=== PATIENT | male | born 1990 | race African-American/Black ===

== ENCOUNTER 2020-03-12 20:03 | Inpatient (IN) | payer OTHER ==
[2020-03-12] MEDS ORDERED: SODIUM CHLORIDE 1,000 ML IV STA ×2 (20:16→21:55)
--- NOTE | 2020-03-12 20:23 | PDOC ---
History of Present Illness - General Chief Complaint: Blood Sugar Problem Stated Complaint: [facility] Time Seen by Provider: 03/12/20 20:16 History Source: Patient Exam Limitations: No Limitations - History of Present Illness Initial Comments: Pt is a 29 yo M, with PMH of uncontrolled hyperglycemia, who is presenting from for hyperglycemia with BGM in 600s. Pt states over the past year, he has had at least 3 episodes when he feels "much more tired" than usual, and goes to and has BGM 500-600s. Pt has not been started on metformin or insulin, and has not seen his PCP since this time. Pt also endorses recent weight loss and decreased appetite. Pt denies any fevers/chills, headache, vision changes, syncope, chest pain, palpitations, SOB, nausea/vomiting, abdominal pain, polyuria or increased thirst, urinary symptoms, diarrhea/constipation, or leg swelling. Allergies: NKDA PCP: Dr. Willy Lopez Social: Pt denies any cigarette, alcohol, or drug use. Pt denies any recent travel or sick contacts. Surgical: nephrectomy as (pt does not know why) Family: extensive history of Type 2 DM 03/12/20 20:54 Past History - Travel History Traveled outside of the country in the last 30 days: No Close contact w/someone who was outside of country & ill: No - Medical History Allergies/Adverse Reactions: Allergies Allergy/AdvReac Type Severity Reaction Status Date / Time shrimp Allergy Verified 03/12/20 21:27 shrimp Allergy Uncoded 03/12/20 20:17 Home Medications: Ambulatory Orders No Home Medications 0 dose .ROUTE UTDICT 09/20/12 Diphenhydramine HCl [Benadryl Capsule -] 25 mg PO TID #4 capsule 02/03/13 EPINEPHrine (EPI-PEN 0.3MG) [Epipen 0.3MG -] 0.3 mg IM ASDIR #2 pens 02/03/13 predniSONE [Deltasone -] 40 mg PO DAILY #4 tablet 02/03/13 COPD: No Other medical history: 1 kidney - Immunization History Immunization Up to Date: No - Psycho-Social/Smoking History Smoking Status: No Smoking History: Never smoked Number of Cigarettes Smoked Daily: 0 Review of Systems - Review of Systems Able to Perform ROS?: Yes Is the patient limited Spanish proficient: No Constitutional: Yes: Loss of Appetite, Malaise, Unintentional Wgt. Loss. No: Chills, Diaphoresis, Fever, Weakness HEENTM: No: Recent change in vision, Nose Congestion, Throat Pain, Throat Swelling, Difficulty Swallowing Respiratory: No: Cough, Orthopnea, Shortness of Breath Cardiac (ROS): No: Chest Pain, Edema, Irregular Heart Rate, Lightheadedness, Palpitations, Syncope, Chest Tightness ABD/GI: Yes: Poor Appetite. No: Constipated, Diarrhea, Nausea, Poor Fluid Intake, Vomiting : No: Burning, Dysuria, Frequency, Hematuria, Pain, Urgency Musculoskeletal: No: Back Pain, Muscle Pain, Muscle Weakness Integumentary: No: Rash Neurological: No: Headache, Numbness, Weakness, Unsteady Gait, Dizziness Psychiatric: Yes: Change in Appetite. No: Stressors, Sleep Pattern Change, Emotional Problems Endocrine: Yes: Unexplained Weight Loss, Change in Weight. No: Intolerance to Cold, Intolerance to Heat, Increased Urine Hematologic/Lymphatic: No: Anemia, Blood Clots, Easy Bleeding, Easy Bruising All Other Systems: Reviewed and Negative *Physical Exam - Vital Signs Last Vital Signs Temp Pulse Resp BP Pulse Ox 98.5 F 97 H 18 122/72 99 03/12/20 20:13 03/12/20 20:13 03/12/20 20:13 03/12/20 20:13 03/12/20 20:13 - Physical Exam Borderline tachycardia (HR 90s), pt afebrile. Pt in NAD, underweight body h abitus. Pt alert and oriented x3. plasterer spray gun generally intact, muscular strength and sensation intact. No midline spinal tenderness, step-offs, or crepitus. Head normocephalic, atraumatic. Eyes PERRLA, EOMI. Oropharynx without erythema or exudates, no LAD b/l. No nasal congestion. Hearing intact. Clear heart sounds, S1/S2, no JVD, b/l pedal edema, or heart murmur. Clear lung sounds, no respiratory distress, wheezes, crackles, or accessory muscle use. No abdominal or CVA tenderness to palpation, no rebound, no guarding. Abdomen soft, non-distended, and with normoactive bowel sounds. Skin without jaundice or rash. 03/12/20 20:59 ED Treatment Course - LABORATORY CBC & Chemistry Diagram: 03/12/20 20:37 03/12/20 20:37 Medical Decision Making - Medical Decision Making Pt was seen at bedside, also will be seen by attending Dr. Meadows. Pt presenting with uncontrolled hyperglycemia, unintentional weight loss; now at FTT, needs an insulin regimen. Will work-up for DKA vs hyperglycemia. BGM 600s today. Provided 1 L IV NS for improvement of hyperglycemia/hydration. Will continue to reassess pt and monitor for symptomatic improvement. 03/12/20 21:01 CBC WNL Gluc 500s Hypokalemia, hyponatremia, hypochloremia -- providing PO K, additional 1 L IV NS, starting sliding scale insulin AG closed Chest x-ray without acute pathology UA: glucose 3+, no ketones 03/12/20 21:57 Pt requires inpatient management due to FTT, uncontrolled DM with poor follow- up, requires insulin regimen. Paged hospitalist team for admission. ECG: NSR, intervals WNL (HR 74, VT 174, QRS 90, QTc 415). TWI V2, flattening in V3, with no significant ST segment changes. No significant changes from prior ECG. Pt accepted by hospitalist team. 03/12/20 22:09 Discharge - Discharge Information Problems reviewed: Yes Clinical Impression/Diagnosis: Hyperglycemia, Hypokalemia, FTT (failure to thrive) in adult Condition: Stable - Admission Yes - Follow up/Referral Referrals: Willy Lopez MD [Primary Care Provider] - - Patient Discharge Instructions - Post Discharge Activity
[2020-03-12 20:54] LABS: VENOUS BASE EXCESS 6.8 mmol/L (-2-2); VENOUS O2 SATURATION 87.4 % (70-80); VENOUS PCO2 49.3 mmHg (38-52); VENOUS PH 7.435 (7.310-7.410)
[2020-03-12 21:02] LABS: URINE APPEARANCE Clear; URINE BILIRUBIN Negative (NEGATIVE); URINE COLOR Yellow; URINE GLUCOSE (UA) 3+ (NEGATIVE); URINE KETONE Negative (NEGATIVE); URINE LEUK ESTERASE Negative (NEGATIVE); URINE NITRITE Negative (NEGATIVE); URINE PROTEIN Negative (NEGATIVE); URINE UROBILINOGEN 0.2 mg/dL (0.2-1.0)
[2020-03-12 21:04] LABS: BASO % 1.5 % (0-2.0); EOS % 0.9 % (0-4.5); HEMATOCRIT 39.8 % (35.4-49); HEMOGLOBIN 13.7 GM/dL (11.7-16.9); LYMPH % 46.3 % (8-40); MCH 31.6 pg (25.7-33.7); MCHC 34.3 g/dl (32.0-35.9); MEAN PLT VOLUME 10.7 fl (7.5-11.1); MONO % 7.6 % (3.8-10.2); NEUT % 43.7 % (42.8-82.8); PLATELET COUNT 123 K/MM3 (134-434); RBC 4.33 M/mm3 (4.00-5.60); RDW 12.8 % (11.9-15.9); WHITE BLOOD COUNT 5.1 K/mm3 (4.0-10.0)
[2020-03-12 21:29] LABS: ALBUMIN 3.2 g/dl (3.4-5.0); BILIRUBIN,TOTAL 0.5 mg/dL (0.2-1); BLOOD UREA NITROGEN 12.6 mg/dL (7-18); CALCIUM 8.8 mg/dL (8.5-10.1); CREATININE 1.1 mg/dL (0.55-1.3); POTASSIUM 3.3 mmol/L (3.5-5.1); TOT PROT 6.2 g/dl (6.4-8.2)
[2020-03-12] MEDS ORDERED: POTASSIUM CHLORIDE TABS 20 MEQ TABLET.ER (FP) PO ONE ×2 (21:32→22:27)
--- NOTE | 2020-03-12 21:49 | PDOC ---
Documentation entered by Walter Tan SCRIBE, acting as scribe for Maurizio Meadows MD. Maurizio Meadows MD: This documentation has been prepared by the rBitney strong Nirvannie, SCRIBE, under my direction and personally reviewed by me in its entirety. I confirm that the documentation accurately reflects all work, treatment, procedures, and medical decision making performed by me. Attending Attestation - Resident Resident Name: KostaCassandra - ED Attending Attestation I have performed the following: I have examined & evaluated the patient, The case was reviewed & discussed with the resident, I agree w/resident's findings & plan, Exceptions are as noted - HPI HPI: 03/12/20 21:42 The patient is a 29 year old male with a significant past medical history of DM who presents to the ED from urgent care with hyperglycemia to the 600s. As per patient, he has experienced increased tiredness. Endorses increased thirst and urination. Denies F/C. States he is not currently on any antihyperlgycemics despite being diagnosed with DM. Allergies: NKDA Surgical History: nephrectomy as infant (unknown reason) Familial History: Extensive history of Type 2 DM Primary Care Physician: Dr. Willy Lopez - Physicial Exam PE: 03/12/20 21:50 "GENERAL: Awake, alert, and fully oriented, in no acute distress. HEAD: No signs of trauma EYES: PERRLA, EOMI, sclera anicteric, conjunctiva clear ENT: Auricles normal inspection, hearing grossly normal, nares patent, oropharynx clear without exudates. Moist mucosa NECK: Nontender, no stepoffs, Normal ROM, supple, no lymphadenopathy, JVD, or masses LUNGS: Breath sounds equal, clear to auscultation bilaterally. No wheezes, and no crackles HEART: Regular rate and rhythm, normal S1 and S2, no murmurs, rubs or gallops ABDOMEN: Soft, nontender, normoactive bowel sounds. No guarding, no rebound. No masses EXTREMITIES: Normal range of motion, no edema. No clubbing or cyanosis. No cords, erythema, or tenderness NEUROLOGICAL: Cranial nerves II through XII intact. 5/5 strength and sensation in all extremities, Normal speech, normal gait, normal cerebellar function SKIN: Warm, Dry, normal turgor, no rashes or lesions noted. - Medical Decision Making 03/12/20 21:50 29 M with elevated fingerstick. - Labs, ketones, VBG - IV fluids, insulin as needed Discharge - Discharge Information Problems reviewed: Yes Clinical Impression/Diagnosis: Hyperglycemia, Hypokalemia, FTT (failure to thrive) in adult Condition: Stable - Follow up/Referral - Patient Discharge Instructions - Post Discharge Activity
[2020-03-12] MEDS ORDERED: INSULIN SLIDING SCALE (NOVOLOG) 1 VIAL SQ SCH (22:00)
--- NOTE | 2020-03-12 23:00 | HP ---
CHIEF COMPLAINT: fatigue and hyperglycemia PCP: Willy Lopez HISTORY OF PRESENT ILLNESS: this is a 29 year old male with a past medical history of asthma as a child, prematurity and nephrectomy as an infant who presented to the ED from urgent care with hyperglycemia. Pt reports feeling fatigued prompting his visit to urgent care. At urgent care his sugar was in the 600s and was sent to the ED for further workup. Pt reports similar episodes of fatigue with associated hyperglycemia twice in the past which were treated at urgent care with recommendations to f/u with his PCP. The first episode was in March 2019 for which he never sought follow up. Approximately one month ago he had another episode and he did follow up with his PCP who recommended endocrine consult. Pt again did not follow up with the cheese grader. Patient reports 20-30 pound weight loss over the past month. Denies polydypsia, polyphagia or polyuria. ER course was notable for: (1) glucose 510 on BMP (2) s/p 1L NS with repeat BGM 341 Recent Travel: pt denies PAST MEDICAL HISTORY: asthma as a child, prematurity PAST SURGICAL HISTORY: nephrectomy shortly after -unknown etiology Social History: Smoking: pt denies Alcohol: pt denies Drugs: pt denies Allergies shrimp Allergy (Verified 03/12/20 21:27) HOME MEDICATIONS: none REVIEW OF SYSTEMS CONSTITUTIONAL: Present: generalized weakness, malaise, loss of appetite, weight change Absent: fever, chills, diaphoresis HEENT: Absent: rhinorrhea, nasal congestion, throat pain, throat swelling, difficulty swallowing, mouth swelling, ear pain, eye pain, visual changes CARDIOVASCULAR: Absent: chest pain, syncope, palpitations, irregular heart rate, lightheadedness, peripheral edema RESPIRATORY: Absent: cough, shortness of breath, dyspnea with exertion, orthopnea, wheezing, stridor, hemoptysis GASTROINTESTINAL: Absent: abdominal pain, abdominal distension, nausea, vomiting, diarrhea, constipation, melena, hematochezia GENITOURINARY: Absent: dysuria, frequency, urgency, hesitancy, hematuria, flank pain, genital pain MUSCULOSKELETAL: Absent: myalgia, arthralgia, joint swelling, back pain, neck pain SKIN: Absent: rash, itching, pallor HEMATOLOGIC/IMMUNOLOGIC: Absent: easy bleeding, easy bruising, lymphadenopathy, frequent infections ENDOCRINE: Present: unexplained weight loss Absent: unexplained weight gain, heat intolerance, cold intolerance NEUROLOGIC: Absent: headache, focal weakness or paresthesias, dizziness, unsteady gait, seizure, mental status changes, bladder or bowel incontinence PSYCHIATRIC: Absent: anxiety, depression, suicidal or homicidal ideation, hallucinations. PHYSICAL EXAMINATION Vital Signs - 24 hr 03/12/20 20:13 Temperature 98.5 F Pulse Rate 97 H Respiratory 18 Rate Blood Pressure 122/72 O2 Sat by Pulse 99 Oximetry (%) GENERAL: Awake, alert, and fully oriented, in no acute distress. HEAD: Normal with no signs of trauma. + temporal mandibular wasting EYES: Pupils equal, round and reactive to light, extraocular movements intact, sclera anicteric, conjunctiva clear. No lid lag. EARS, NOSE, THROAT: Ears normal, nares patent, oropharynx clear without exudates. Moist mucous membranes. NECK: Normal range of motion, supple without lymphadenopathy, JVD, or masses. LUNGS: Breath sounds equal, clear to auscultation bilaterally. No wheezes, and no crackles. No accessory muscle use. HEART: Regular rate and rhythm, normal S1 and S2 without murmur, rub or gallop. ABDOMEN: Soft, nontender, not distended, normoactive bowel sounds, no guarding, no rebound, no masses. No hepatomegaly or splenomegaly. MUSCULOSKELETAL: Normal range of motion at all joints. No bony deformities or tenderness. No CVA tenderness. UPPER EXTREMITIES: 2+ pulses, warm, well-perfused. No cyanosis. No clubbing. No peripheral edema. LOWER EXTREMITIES: 2+ pulses, warm, well-perfused. No calf tenderness. No peripheral edema. NEUROLOGICAL: Cranial nerves II-XII intact. Normal speech. Normal gait. PSYCHIATRIC: Cooperative. Good eye contact. Appropriate mood and affect. SKIN: Warm, dry, normal turgor, no rashes or lesions noted, normal capillary refill. Laboratory Results - last 24 hr 03/12/20 03/12/20 03/12/20 20:37 20:37 20:37 WBC 5.1 RBC 4.33 Hgb 13.7 Hct 39.8 MCV 92.0 MCH 31.6 MCHC 34.3 RDW 12.8 Plt Count 123 L MPV 10.7 Absolute Neuts (auto) 2.2 Neutrophils % 43.7 Lymphocytes % 46.3 H Monocytes % 7.6 Eosinophils % 0.9 Basophils % 1.5 Nucleated RBC % 0 VBG pH POC VBG pCO2 POC VBG pO2 VBG HCO3 VBG O2 Sat (Kavon) VBG Base Excess Sodium Potassium Chloride Carbon Dioxide Anion Gap BUN Creatinine Est GFR (CKD-EPI)AfAm Est GFR (CKD-EPI)NonAf POC Glucometer Random Glucose Calcium Total Bilirubin AST ALT Alkaline Phosphatase Total Protein Albumin Beta-Hydroxybutyrate 1.7 Urine Color Yellow Urine Appearance Clear Urine pH 7.0 Ur Specific [place] 1.010 Urine Protein Negative Urine Glucose (UA) 3+ H Urine Ketones Negative Urine Blood Negative Urine Nitrite Negative Urine Bilirubin Negative Urine Urobilinogen 0.2 Ur Leukocyte Esterase Negative 03/12/20 03/12/20 03/12/20 20:37 20:37 22:25 WBC RBC Hgb Hct MCV MCH MCHC RDW Plt Count MPV Absolute Neuts (auto) Neutrophils % Lymphocytes % Monocytes % Eosinophils % Basophils % Nucleated RBC % VBG pH 7.435 H POC VBG pCO2 49.3 POC VBG pO2 51.8 H VBG HCO3 32.4 H VBG O2 Sat (Kavon) 87.4 H VBG Base Excess 6.8 H Sodium 132 L Potassium 3.3 L Chloride 90 L Carbon Dioxide 34 H Anion Gap 8 BUN 12.6 Creatinine 1.1 Est GFR (CKD-EPI)AfAm 105.32 Est GFR (CKD-EPI)NonAf 90.87 POC Glucometer 341 Random Glucose 510 H* Calcium 8.8 Total Bilirubin 0.5 AST 30 ALT 51 Alkaline Phosphatase 122 H Total Protein 6.2 L Albumin 3.2 L Beta-Hydroxybutyrate Urine Color Urine Appearance Urine pH Ur Specific [place] Urine Protein Urine Glucose (UA) Urine Ketones Urine Blood Urine Nitrite Urine Bilirubin Urine Urobilinogen Ur Leukocyte Esterase ECG: Normal sinus rhythm vent rate 74, QTC [address]/t wave changes Chest xray: Impression: Unremarkable examination without evidence of acute lung disease. ASSESSMENT/PLAN: 29yM with h/o childhood asthma and nephrectomy present to the ED now admitted with new onset DM without DKA. New onset DM - sliding scale novolog - initiate levemir @ 0.1u/kg=6u HS - monitor BGM AC/HS - consider endocrine consult hypokalemia - replete K as ordered - f/u BMP in am PPX - pt fully ambulatory, <40y age, defer heparin - no GI ppx indicated FEN - po fluids as tolerated - BMP in am - diabetic diet as tolerated Dispo: This patient requires inpatient admission for management of his emergent medical condition. Family Medical History Family Hx Diabetes: Mother, Brother Family Hx Renal Disease: Mother (on HD) Visit type - Emergency Visit Emergency Visit: Yes ED Registration Date: 03/12/20 Care time: The patient presented to the Emergency Department on the above date and was hospitalized for further evaluation of their emergent condition. - New Patient This patient is new to me today: Yes Date on this admission: 03/12/20 - Critical Care Critical Care patient: No
[2020-03-12] MEDS: INSULIN (LEVEMIR) 100 UNITS/ML UNITS SQ SCH (23:26)
[2020-03-13] MEDS: INSULIN SLIDING SCALE (NOVOLOG) 1 VIAL SQ SCH ×3 (06:15→16:46)
[2020-03-13 07:21] LABS: BASO % 0.7 % (0-2.0); EOS % 2.3 % (0-4.5); HEMOGLOBIN 13.1 GM/dL (11.7-16.9); MCH 31.5 pg (25.7-33.7); MCHC 34.5 g/dl (32.0-35.9); MEAN CELL VOLUME 91.2 fl (80-96); MEAN PLT VOLUME 10.6 fl (7.5-11.1); MONO % 6.4 % (3.8-10.2); NEUT % 40.6 % (42.8-82.8); PLATELET COUNT 120 K/MM3 (134-434); RBC 4.16 M/mm3 (4.00-5.60); RDW 12.4 % (11.9-15.9); WHITE BLOOD COUNT 5.6 K/mm3 (4.0-10.0)
[2020-03-13 07:25] LABS: BLOOD UREA NITROGEN 9.4 mg/dL (7-18); CALCIUM 8.3 mg/dL (8.5-10.1); CREATININE 0.8 mg/dL (0.55-1.3); MAGNESIUM 1.5 mg/dL (1.8-2.4); PHOSPHOROUS 2.6 mg/dL (2.5-4.9); POTASSIUM 3.1 mmol/L (3.5-5.1)
[2020-03-13] MEDS ORDERED: POTASSIUM CHLORIDE TABS 20 MEQ TABLET.ER (FP) PO ONE (07:48)
[2020-03-13] MEDS: KCL 10 MEQ IVPB 10 MEQ/100 ML INFUS.BAG IVPB SCH ×3 (08:54→10:35)
--- NOTE | 2020-03-13 14:19 | PN ---
Physical Exam: SUBJECTIVE: Patient seen and examined at bedside. He endorses fatigue, and unintentional weight loss of approx. 25 pounds over the past month OBJECTIVE: Vital Signs Period Temp Pulse Resp BP Sys/Faust Pulse Ox Last 24 Hr 98.1 F-98.6 F 81-97 18-20 105-122/70-72 95-99 GENERAL: The patient is awake, alert, and fully oriented, in no acute distress. HEAD: Normocephalic, atraumatic. Temporal wasting noted. EYES: PERRL, extraocular movements intact, sclera anicteric, conjunctiva clear. ENT: Oropharynx clear, without erythema or exudates. Moist mucous membranes. NECK: Trachea midline, full range of motion. Supple without lymphadenopathy. LUNGS: Breath sounds equal, clear to auscultation bilaterally. No wheezes, no crackles. No accessory muscle use. HEART: Regular rate and rhythm. S1, S2 without murmur, rub or gallop. ABDOMEN: Soft, nondistended, nontender to light and deep palpation x4 quadrants. No rebound tenderness, no guarding. Normoactive bowel sounds x4 quadrants. No hepatosplenomegaly, no masses appreciated. EXTREMITIES: 2+ radial, dorsalis pedis pulses bilaterally. Warm, well-perfused. No lower extremity edema bilaterally. NEUROLOGICAL: Cranial nerves II through XII grossly intact. Normal speech. No gross focal deficits. PSYCH: Normal mood, normal affect upon my encounter. SKIN: Warm, dry. Laboratory Results - last 24 hr 03/12/20 03/12/20 03/12/20 20:37 20:37 20:37 WBC 5.1 RBC 4.33 Hgb 13.7 Hct 39.8 MCV 92.0 MCH 31.6 MCHC 34.3 RDW 12.8 Plt Count 123 L MPV 10.7 Absolute Neuts (auto) 2.2 Neutrophils % 43.7 Lymphocytes % 46.3 H Monocytes % 7.6 Eosinophils % 0.9 Basophils % 1.5 Nucleated RBC % 0 VBG pH POC VBG pCO2 POC VBG pO2 VBG HCO3 VBG O2 Sat (Kavon) VBG Base Excess Sodium Potassium Chloride Carbon Dioxide Anion Gap BUN Creatinine Est GFR (CKD-EPI)AfAm Est GFR (CKD-EPI)NonAf POC Glucometer Random Glucose Hemoglobin A1c % Calcium Phosphorus Magnesium Total Bilirubin AST ALT Alkaline Phosphatase Total Protein Albumin Beta-Hydroxybutyrate 1.7 Urine Color Yellow Urine Appearance Clear Urine pH 7.0 Ur Specific R[place] 1.010 Urine Protein Negative Urine Glucose (UA) 3+ H Urine Ketones Negative Urine Blood Negative Urine Nitrite Negative Urine Bilirubin Negative Urine Urobilinogen 0.2 Ur Leukocyte Esterase Negative 03/12/20 03/12/20 03/12/20 20:37 20:37 22:25 WBC RBC Hgb Hct MCV MCH MCHC RDW Plt Count MPV Absolute Neuts (auto) Neutrophils % Lymphocytes % Monocytes % Eosinophils % Basophils % Nucleated RBC % VBG pH 7.435 H POC VBG pCO2 49.3 POC VBG pO2 51.8 H VBG HCO3 32.4 H VBG O2 Sat (Kavon) 87.4 H VBG Base Excess 6.8 H Sodium 132 L Potassium 3.3 L Chloride 90 L Carbon Dioxide 34 H Anion Gap 8 BUN 12.6 Creatinine 1.1 Est GFR (CKD-EPI)AfAm 105.32 Est GFR (CKD-EPI)NonAf 90.87 POC Glucometer 341 Random Glucose 510 H* Hemoglobin A1c % Calcium 8.8 Phosphorus Magnesium Total Bilirubin 0.5 AST 30 ALT 51 Alkaline Phosphatase 122 H Total Protein 6.2 L Albumin 3.2 L Beta-Hydroxybutyrate Urine Color Urine Appearance Urine pH Ur Specific Rake Urine Protein Urine Glucose (UA) Urine Ketones Urine Blood Urine Nitrite Urine Bilirubin Urine Urobilinogen Ur Leukocyte Esterase 03/12/20 03/13/20 03/13/20 23:26 05:17 05:17 WBC 5.6 RBC 4.16 Hgb 13.1 Hct 38.0 MCV 91.2 MCH 31.5 MCHC 34.5 RDW 12.4 Plt Count 120 L MPV 10.6 Absolute Neuts (auto) 2.3 Neutrophils % 40.6 L Lymphocytes % 50.0 H Monocytes % 6.4 Eosinophils % 2.3 D Basophils % 0.7 Nucleated RBC % 0 VBG pH POC VBG pCO2 POC VBG pO2 VBG HCO3 VBG O2 Sat (Kavon) VBG Base Excess Sodium 139 Potassium 3.1 L Chloride 101 Carbon Dioxide 32 Anion Gap 6 L BUN 9.4 Creatinine 0.8 Est GFR (CKD-EPI)AfAm 140.90 Est GFR (CKD-EPI)NonAf 121.57 POC Glucometer 312 Random Glucose 255 H Hemoglobin A1c % Calcium 8.3 L Phosphorus 2.6 Magnesium 1.5 L Total Bilirubin AST ALT Alkaline Phosphatase Total Protein Albumin Beta-Hydroxybutyrate Urine Color Urine Appearance Urine pH Ur Specific Rake Urine Protein Urine Glucose (UA) Urine Ketones Urine Blood Urine Nitrite Urine Bilirubin Urine Urobilinogen Ur Leukocyte Esterase 03/13/20 03/13/20 03/13/20 06:14 11:39 12:07 WBC RBC Hgb Hct MCV MCH MCHC RDW Plt Count MPV Absolute Neuts (auto) Neutrophils % Lymphocytes % Monocytes % Eosinophils % Basophils % Nucleated RBC % VBG pH POC VBG pCO2 POC VBG pO2 VBG HCO3 VBG O2 Sat (Kavon) VBG Base Excess Sodium Potassium Chloride Carbon Dioxide Anion Gap BUN Creatinine Est GFR (CKD-EPI)AfAm Est GFR (CKD-EPI)NonAf POC Glucometer 234 217 Random Glucose Hemoglobin A1c % 15.0 H Calcium Phosphorus Magnesium Total Bilirubin AST ALT Alkaline Phosphatase Total Protein Albumin Beta-Hydroxybutyrate Urine Color Urine Appearance Urine pH Ur Specific Rake Urine Protein Urine Glucose (UA) Urine Ketones Urine Blood Urine Nitrite Urine Bilirubin Urine Urobilinogen Ur Leukocyte Esterase Active Medications Generic Name Dose Route Start Last Admin Trade Name Frekris PRN Reason Stop Dose Admin Insulin Aspart 1 vial 03/13/20 07:00 03/13/20 11:44 Novolog Vial Sliding Scale - SQ 3 units TIDAC SAYDA Administration Protocol Insulin Aspart 1 vial 03/13/20 22:00 Novolog Vial Sliding Scale - SQ HS SAYDA Protocol Insulin Detemir 6 units 03/12/20 22:54 03/12/20 23:26 Levemir Vial SQ 6 units HS SAYDA Administration ASSESSMENT/PLAN: Patient is a 29 year old male with history of diabetes mellitus, asthma, premature presents with complaint of fatigue Diabetes Mellitus -HbA1c 15. Unclear picture of Type I vs Type II given onset approx one year ago, with concurrent weight loss. There is positive family history of DM -Insulin Levemir 6 units subq HS -Novolog sliding scale ACHS -Fingerstick blood glucose monitoring -Endocrinology recommendations (Dr. Howell) appreciated Unintentional weight loss -Patient endorses approx 25 pound weight loss over the past month. Lymphocyte predominance concerning for malignancy -Will order CT chest, abdomen, pelvis. -Follow HIV serology -Hematology/ Oncology consult once imaging studies are obtained FEN -No IV fluids indicated -Hypokalemia, repleted. Follow BMP -Diabetic diet Prophylaxis -Early ambulation Disposition -Continue care in medical- surgical floor. Visit type - Emergency Visit Emergency Visit: Yes ED Registration Date: 03/12/20 Care time: The patient presented to the Emergency Department on the above date and was hospitalized for further evaluation of their emergent condition. - New Patient This patient is new to me today: Yes Date on this admission: 03/13/20 - Critical Care Critical Care patient: No - Discharge Referral Referred to [facility] Med [facility].C[facility] No ATTENDING PHYSICIAN STATEMENT I saw and evaluated the patient. I reviewed the resident's note and discussed the case with the resident. I agree with the resident's findings and plan as documented. SUBJECTIVE: OBJECTIVE: ASSESSMENT AND PLAN:
--- NOTE | 2020-03-13 14:40 | EKG ---
Test Reason : Blood Pressure : / mmHG Vent. Rate : 075 BPM Atrial Rate : 075 BPM P-R Int : 178 ms QRS Dur : 086 ms QT Int : 370 ms P-R-T Axes : 046 017 045 degrees QTc Int : 413 ms NORMAL SINUS RHYTHM NONSPECIFIC T WAVE ABNORMALITY ABNORMAL ECG NO PREVIOUS ECGS AVAILABLE Confirmed by MD KENNA, JAROD ([id number]) on 03/13/2020 2:39:39 PM Referred By: Confirmed By:JAROD PIERSON MD
--- NOTE | 2020-03-13 15:06 | PN ---
Teaching Attending Note Name of Resident: Herminio Leonard ATTENDING PHYSICIAN STATEMENT I saw and evaluated the patient. I reviewed the resident's note and discussed the case with the resident. I agree with the resident's findings and plan as documented. SUBJECTIVE: Seen and examined at bedside. Patient's hemoglobin A1c found to be 15. Is c urrently hemodynamically stable and has no complaints other than fatigue. Given severe weight loss in the last 4 to 6 weeks and lymphocytic predominance of CBC differential there is concern for malignancy. Will order kraft CT OBJECTIVE: Last Vital Signs Temp Pulse Resp BP Pulse Ox 98.1 F 81 20 105/70 95 03/13/20 10:00 03/13/20 10:00 03/13/20 10:00 03/13/20 10:03/13/20 09:00 ASSESSMENT AND PLAN: 29-year-old male with past medical history of asthma, premature and nephrectomy as an who presents with hyperglycemia in the 600s, weight loss of 20 to 30 pounds over the last 4 to 6 weeks. #Hyperglycemia Strange presentation as patient is cachectic with high A1c, however has not gone into DKA. 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
[2020-03-13 18:21] LABS: BASO % 1.4 % (0-2.0); EOS % 1.6 % (0-4.5); HEMATOCRIT 41.6 % (35.4-49); HEMOGLOBIN 14.2 GM/dL (11.7-16.9); LYMPH % 41.7 % (8-40); MCH 31.7 pg (25.7-33.7); MCHC 34.1 g/dl (32.0-35.9); MEAN CELL VOLUME 92.9 fl (80-96); MONO % 5.1 % (3.8-10.2); NEUT % 50.2 % (42.8-82.8); PLATELET COUNT 126 K/MM3 (134-434); RBC 4.48 M/mm3 (4.00-5.60); RDW 12.9 % (11.9-15.9); WHITE BLOOD COUNT 6.5 K/mm3 (4.0-10.0)
[2020-03-13] MEDS ORDERED: PNEUMOC 13-VAL CONJ-DIP CRM/PF 0.5 ML DISP.SYRIN IM ONE (18:21)
[2020-03-13] MEDS ORDERED: PNEUMOCOCCAL 23 VACCINE 0.5 ML VIAL IM ONE (19:00)
[2020-03-13] MEDS ORDERED: INSULIN (NOVOLOG) ASPART 100 UNITS/ML 10ML VIAL ONE (21:04)
[2020-03-13] MEDS: INSULIN (LEVEMIR) 100 UNITS/ML UNITS SQ SCH (21:21)
[2020-03-13] MEDS ORDERED: INSULIN SLIDING SCALE (NOVOLOG) 1 VIAL SQ SCH (22:00)
--- NOTE | 2020-03-13 23:29 | CONSULT ---
Consult Consult Specialty:: endocrine Referred by:: Elizabeth Durham Resident Doctor Reason for Consultation:: DM uncontrolled - History of Present Illness Chief Complaint: high sugars History of Present Illness: 29ymale,pmh dmt2,admitted with hyperglycemia,nausea,weakness,weight loss 40lbs,has had blurred vision,frequent urination,increased thirst,blood sugar found over 500mg/dl despited taking medication and insulin,denies fever,cough chills,or chest pain. - Smoking History Smoking history: Never smoked Have you smoked in the past 12 months: No Aproximately how many cigarettes per day: 0 Home Medications - Allergies Allergies/Adverse Reactions: Allergies Allergy/AdvReac Type Severity Reaction Status Date / Time shellfish derived Allergy Severe Difficulty Verified 03/13/20 08:24 Breathing shrimp Allergy Verified 03/12/20 21:27 shrimp Allergy Uncoded 03/12/20 20:17 - Home Medications Home Medications: Ambulatory Orders NK [No Known Home Medication] 03/12/20 Review of Systems - Review of Systems Constitutional: reports: Lethargy, Unintentional Wgt. Loss, Weakness Eyes: reports: Blurred Vision HENT: reports: No Symptoms Neck: reports: No Symptoms Cardiovascular: reports: Shortness of Breath Respiratory: reports: Exercise Intolerance, SOB Gastrointestinal: reports: Bloating, Nausea Genitourinary: reports: Frequency Breasts: reports: No Symptoms Reported Musculoskeletal: reports: Muscle Cramps, Muscle Weakness Neurological: reports: Numbness Endocrine: reports: Unexplained Weight Loss Physical Exam Vital Signs: Vital Signs Temperature 98.7 F 03/13/20 19:44 Pulse Rate 62 03/13/20 19:44 Respiratory Rate 18 03/13/20 19:44 Blood Pressure 136/89 03/13/20 19:44 O2 Sat by Pulse Oximetry (%) 96 03/13/20 22:00 Labs: CBC, BMP 03/13/20 17:36 03/13/20 05:17 Assessment/Plan Current Active Problems FTT (failure to thrive) in adult (Acute) Hyperglycemia (Acute) Hypokalemia (Acute) Abnormal Lab Results 03/13/20 03/13/20 03/13/20 05:17 05:17 12:07 Plt Count 120 L Neutrophils % 40.6 L Lymphocytes % 50.0 H Potassium 3.1 L Anion Gap 6 L Random Glucose 255 H Hemoglobin A1c % 15.0 H Calcium 8.3 L Magnesium 1.5 L 03/13/20 17:36 Plt Count 126 L Neutrophils % Lymphocytes % 41.7 H Potassium Anion Gap Random Glucose Hemoglobin A1c % Calcium Magnesium Laboratory Results - last 24 hr 03/13/20 03/13/20 03/13/20 05:17 05:17 06:14 WBC 5.6 RBC 4.16 Hgb 13.1 Hct 38.0 MCV 91.2 MCH 31.5 MCHC 34.5 RDW 12.4 Plt Count 120 L MPV 10.6 Absolute Neuts (auto) 2.3 Neutrophils % 40.6 L Lymphocytes % 50.0 H Monocytes % 6.4 Eosinophils % 2.3 D Basophils % 0.7 Nucleated RBC % 0 Sodium 139 Potassium 3.1 L Chloride 101 Carbon Dioxide 32 Anion Gap 6 L BUN 9.4 Creatinine 0.8 Est GFR (CKD-EPI)AfAm 140.90 Est GFR (CKD-EPI)NonAf 121.57 POC Glucometer 234 Random Glucose 255 H Hemoglobin A1c % Calcium 8.3 L Phosphorus 2.6 Magnesium 1.5 L HIV Ag/Ab Combo Qual 03/13/20 03/13/20 03/13/20 11:39 12:07 16:35 WBC RBC Hgb Hct MCV MCH MCHC RDW Plt Count MPV Absolute Neuts (auto) Neutrophils % Lymphocytes % Monocytes % Eosinophils % Basophils % Nucleated RBC % Sodium Potassium Chloride Carbon Dioxide Anion Gap BUN Creatinine Est GFR (CKD-EPI)AfAm Est GFR (CKD-EPI)NonAf POC Glucometer 217 Random Glucose Hemoglobin A1c % 15.0 H Calcium Phosphorus Magnesium HIV Ag/Ab Combo Qual Negative 03/13/20 03/13/20 03/13/20 16:37 17:36 20:57 WBC 6.5 RBC 4.48 Hgb 14.2 Hct 41.6 MCV 92.9 MCH 31.7 MCHC 34.1 RDW 12.9 Plt Count 126 L MPV 11.0 Absolute Neuts (auto) 3.3 Neutrophils % 50.2 D Lymphocytes % 41.7 H Monocytes % 5.1 Eosinophils % 1.6 Basophils % 1.4 Nucleated RBC % 0 Sodium Potassium Chloride Carbon Dioxide Anion Gap BUN Creatinine Est GFR (CKD-EPI)AfAm Est GFR (CKD-EPI)NonAf POC Glucometer 250 239 Random Glucose Hemoglobin A1c % Calcium Phosphorus Magnesium HIV Ag/Ab Combo Qual plan: nutrition diet bgm achs novlog scale levemir 12 units bid follow up as outpatient
[2020-03-14] MEDS: INSULIN (LEVEMIR) 100 UNITS/ML UNITS SQ SCH ×2 (06:22→23:00)
[2020-03-14] MEDS: INSULIN SLIDING SCALE (NOVOLOG) 1 VIAL SQ SCH ×3 (06:23→16:32)
[2020-03-14] MEDS ORDERED: INSULIN (LEVEMIR) 100 UNITS/ML UNITS SQ ONE (06:28)
[2020-03-14] MEDS ORDERED: INSULIN (NOVOLOG) ASPART 100 UNITS/ML 10ML VIAL ONE ×2 (06:28→11:19)
[2020-03-14 08:22] LABS: BASO % 0.3 % (0-2.0); EOS % 2.9 % (0-4.5); HEMATOCRIT 39.5 % (35.4-49); HEMOGLOBIN 13.5 GM/dL (11.7-16.9); LYMPH % 40.7 % (8-40); MCH 31.4 pg (25.7-33.7); MCHC 34.1 g/dl (32.0-35.9); MEAN CELL VOLUME 91.9 fl (80-96); MEAN PLT VOLUME 10.4 fl (7.5-11.1); MONO % 5.5 % (3.8-10.2); NEUT % 50.6 % (42.8-82.8); PLATELET COUNT 115 K/MM3 (134-434); RBC 4.29 M/mm3 (4.00-5.60); RDW 13.3 % (11.9-15.9); WHITE BLOOD COUNT 5.9 K/mm3 (4.0-10.0)
--- NOTE | 2020-03-14 08:42 | PN ---
Teaching Attending Note Name of Resident: Herminio Leonard ATTENDING PHYSICIAN STATEMENT I saw and evaluated the patient. I reviewed the resident's note and discussed the case with the resident. I agree with the resident's findings and plan as documented. SUBJECTIVE: Seen and examined at bedside. Glucose better controlled. Patient continues to have significant electrolyte disturbances, including magnesium and potassium. We will replete electrolytes and recheck with plan to discharge tomorrow morning if he remains stable. OBJECTIVE: Last Vital Signs Temp Pulse Resp BP Pulse Ox 98.6 F 70 20 118/77 96 03/14/20 06:00 03/14/20 06:00 03/14/20 06:00 03/14/20 06:00 03/13/20 22:00 ASSESSMENT AND PLAN: 29-year-old male with past medical history of asthma, premature and nephrectomy as an who presents with hyperglycemia in the 600s, weight loss of 20 to 30 pounds over the last 4 to 6 weeks. #Hyperglycemia Strange presentation as patient is cachectic with high A1c, however has not gone into DKA. 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
[2020-03-14 09:02] LABS: ALBUMIN 2.9 g/dl (3.4-5.0); BILIRUBIN,TOTAL 0.4 mg/dL (0.2-1); BLOOD UREA NITROGEN 14.1 mg/dL (7-18); CREATININE 0.8 mg/dL (0.55-1.3); MAGNESIUM 1.3 mg/dL (1.8-2.4); PHOSPHOROUS 3.4 mg/dL (2.5-4.9); POTASSIUM 3.1 mmol/L (3.5-5.1); TOT PROT 5.8 g/dl (6.4-8.2)
[2020-03-14] MEDS ORDERED: POTASSIUM CHLORIDE ORAL LIQUID 20 MEQ/15 ML PO ONE (12:30)
[2020-03-14] MEDS ORDERED: MAGNESIUM OXIDE 400 MG TABLET (FP) PO ONE (13:04)
[2020-03-14] MEDS ORDERED: MAGNESIUM SULF 50% (8.12 MEQ/2 ML-1 GM VIAL) IVPB ONE (13:04)
[2020-03-14] MEDS: KCL 10 MEQ IVPB 10 MEQ/100 ML INFUS.BAG IVPB SCH ×3 (13:30→17:07)
[2020-03-14 14:43] VITALS: BMI 17.2
[2020-03-14 16:40] LABS: BLOOD UREA NITROGEN 11.5 mg/dL (7-18); CALCIUM 9.3 mg/dL (8.5-10.1); CREATININE 0.8 mg/dL (0.55-1.3); MAGNESIUM 1.4 mg/dL (1.8-2.4); POTASSIUM 3.3 mmol/L (3.5-5.1)
--- NOTE | 2020-03-14 16:45 | PN ---
Physical Exam: SUBJECTIVE: Patient seen and examined at bedside. Denies acute complaints. OBJECTIVE: Vital Signs Period Temp Pulse Resp BP Sys/Faust Pulse Ox Last 24 Hr 98 F-99.1 F 62-83 18-20 106-136/60-89 96-96 GENERAL: The patient is awake, alert, and fully oriented, in no acute distress. HEAD: Normocephalic, atraumatic. Temporal wasting noted. EYES: PERRL, extraocular movements intact, sclera anicteric, conjunctiva clear. ENT: Oropharynx clear, without erythema or exudates. Moist mucous membranes. NECK: Trachea midline, full range of motion. Supple without lymphadenopathy. LUNGS: Breath sounds equal, clear to auscultation bilaterally. No wheezes, no crackles. No accessory muscle use. HEART: Regular rate and rhythm. S1, S2 without murmur, rub or gallop. ABDOMEN: Soft, nondistended, nontender to light and deep palpation x4 quadrants. No rebound tenderness, no guarding. Normoactive bowel sounds x4 quadrants. No hepatosplenomegaly, no masses appreciated. EXTREMITIES: 2+ radial, dorsalis pedis pulses bilaterally. Warm, well-perfused. No lower extremity edema bilaterally. NEUROLOGICAL: Cranial nerves II through XII grossly intact. Normal speech. No gross focal deficits. PSYCH: Normal mood, normal affect upon my encounter. SKIN: Large vertical abdominal scar noted, well healed, dry. Laboratory Results - last 24 hr 03/13/20 03/13/20 03/13/20 16:35 17:36 20:57 WBC 6.5 RBC 4.48 Hgb 14.2 Hct 41.6 MCV 92.9 MCH 31.7 MCHC 34.1 RDW 12.9 Plt Count 126 L MPV 11.0 Absolute Neuts (auto) 3.3 Neutrophils % 50.2 D Lymphocytes % 41.7 H Monocytes % 5.1 Eosinophils % 1.6 Basophils % 1.4 Nucleated RBC % 0 ESR Sodium Potassium Chloride Carbon Dioxide Anion Gap BUN Creatinine Est GFR (CKD-EPI)AfAm Est GFR (CKD-EPI)NonAf POC Glucometer 239 Random Glucose Calcium Phosphorus Magnesium Total Bilirubin AST ALT Alkaline Phosphatase LD Total C-Reactive Protein Total Protein Albumin TSH Rheumatoid Factor HIV Ag/Ab Combo Qual Negative 03/14/20 03/14/20 03/14/20 06:21 07:08 07:08 WBC 5.9 RBC 4.29 Hgb 13.5 Hct 39.5 MCV 91.9 MCH 31.4 MCHC 34.1 RDW 13.3 Plt Count 115 L MPV 10.4 Absolute Neuts (auto) 3.0 Neutrophils % 50.6 Lymphocytes % 40.7 H Monocytes % 5.5 Eosinophils % 2.9 D Basophils % 0.3 Nucleated RBC % 0 ESR Sodium 140 Potassium 3.1 L Chloride 101 Carbon Dioxide 32 Anion Gap 8 BUN 14.1 Creatinine 0.8 Est GFR (CKD-EPI)AfAm 140.90 Est GFR (CKD-EPI)NonAf 121.57 POC Glucometer 219 Random Glucose 188 H Calcium 9.0 Phosphorus 3.4 Magnesium 1.3 L Total Bilirubin 0.4 AST 44 H ALT 57 Alkaline Phosphatase 121 H LD Total C-Reactive Protein Total Protein 5.8 L Albumin 2.9 L TSH Rheumatoid Factor HIV Ag/Ab Combo Qual 03/14/20 03/14/20 03/14/20 11:23 15:43 15:43 WBC RBC Hgb Hct MCV MCH MCHC RDW Plt Count MPV Absolute Neuts (auto) Neutrophils % Lymphocytes % Monocytes % Eosinophils % Basophils % Nucleated RBC % ESR Sodium 141 Potassium 3.3 L Chloride 100 Carbon Dioxide 34 H Anion Gap 7 L BUN 11.5 Creatinine 0.8 Est GFR (CKD-EPI)AfAm 140.90 Est GFR (CKD-EPI)NonAf 121.57 POC Glucometer 186 Random Glucose 140 H Calcium 9.3 Phosphorus Magnesium 1.4 L Total Bilirubin AST ALT Alkaline Phosphatase LD Total 156 C-Reactive Protein < 0.3 Total Protein Albumin TSH 1.11 Rheumatoid Factor < 10.0 HIV Ag/Ab Combo Qual 03/14/20 03/14/20 15:43 16:19 WBC RBC Hgb Hct MCV MCH MCHC RDW Plt Count MPV Absolute Neuts (auto) Neutrophils % Lymphocytes % Monocytes % Eosinophils % Basophils % Nucleated RBC % ESR 5 Sodium Potassium Chloride Carbon Dioxide Anion Gap BUN Creatinine Est GFR (CKD-EPI)AfAm Est GFR (CKD-EPI)NonAf POC Glucometer 152 Random Glucose Calcium Phosphorus Magnesium Total Bilirubin AST ALT Alkaline Phosphatase LD Total C-Reactive Protein Total Protein Albumin TSH Rheumatoid Factor HIV Ag/Ab Combo Qual Active Medications Generic Name Dose Route Start Last Admin Trade Name Freq PRN Reason Stop Dose Admin Insulin Aspart 1 vial 03/13/20 22:45 03/14/20 16:32 Novolog Vial Sliding Scale - SQ 3 units TIDAC [facility] Administration Protocol Insulin Detemir 12 units 03/14/20 07:00 03/14/20 06:22 Levemir Vial SQ 12 units BID@0700,2200 [facility] Administration ASSESSMENT/PLAN: Patient is a 29 year old male with history of diabetes mellitus, asthma, premature presents with complaint of fatigue Diabetes Mellitus -HbA1c 15. Unclear picture of Type I vs Type II given onset approx one year ago, with concurrent weight loss. There is positive family history of DM -Insulin Levemir 12 units subq BID -Novolog sliding scale ACHS -Fingerstick blood glucose monitoring -Endocrinology recommendations (Dr. Howell) appreciated Unintentional weight loss -Patient endorses approx 25 pound weight loss over the past month. Lymphocyte predominance concerning for malignancy -CT chest, abdomen, pelvis does not reveal acute pathology. -HIV serology negative. -Hematology/ Oncology consult once imaging studies are obtained Hypokalemia, Hypomagnesemia -Repleted. Follow BMP, Magnesium FEN -No IV fluids indicated -Hypokalemia, repleted. Follow BMP -Diabetic diet Prophylaxis -Early ambulation Disposition -Continue care in medical- surgical floor. Visit type - Emergency Visit Emergency Visit: Yes ED Registration Date: 03/12/20 Care time: The patient presented to the Emergency Department on the above date and was hospitalized for further evaluation of their emergent condition. - New Patient This patient is new to me today: No - Critical Care Critical Care patient: No - Discharge Referral Referred to [facility] Med P.C.: No ATTENDING PHYSICIAN STATEMENT I saw and evaluated the patient. I reviewed the resident's note and discussed the case with the resident. I agree with the resident's findings and plan as documented. SUBJECTIVE: OBJECTIVE: ASSESSMENT AND PLAN:
[2020-03-14] MEDS ORDERED: MAGNESIUM SULF 50% (8.12 MEQ/2 ML-1 GM VIAL) ONE (17:17)
[2020-03-14 21:16] LABS: BASO % 0.3 % (0-2.0); EOS % 1.4 % (0-4.5); HEMATOCRIT 40.2 % (35.4-49); HEMOGLOBIN 13.6 GM/dL (11.7-16.9); LYMPH % 40.1 % (8-40); MCH 31.7 pg (25.7-33.7); MCHC 33.9 g/dl (32.0-35.9); MEAN CELL VOLUME 93.4 fl (80-96); MEAN PLT VOLUME 10.8 fl (7.5-11.1); MONO % 8.8 % (3.8-10.2); NEUT % 49.4 % (42.8-82.8); PLATELET COUNT 116 K/MM3 (134-434); RDW 12.8 % (11.9-15.9); WHITE BLOOD COUNT 5.6 K/mm3 (4.0-10.0)
[2020-03-15] MEDS: INSULIN (LEVEMIR) 100 UNITS/ML UNITS SQ SCH (06:22)
[2020-03-15] MEDS: INSULIN SLIDING SCALE (NOVOLOG) 1 VIAL SQ SCH ×2 (06:22→11:26)
[2020-03-15 08:15] LABS: ALBUMIN 2.9 g/dl (3.4-5.0); BILIRUBIN,TOTAL 0.4 mg/dL (0.2-1); BLOOD UREA NITROGEN 15.1 mg/dL (7-18); CREATININE 0.7 mg/dL (0.55-1.3); MAGNESIUM 1.4 mg/dL (1.8-2.4); PHOSPHOROUS 4.2 mg/dL (2.5-4.9); POTASSIUM 3.4 mmol/L (3.5-5.1); TOT PROT 5.8 g/dl (6.4-8.2)
[2020-03-15] MEDS ORDERED: MAGNESIUM SULF 50% (8.12 MEQ/2 ML-1 GM VIAL) IVPB ONE (09:00)
[2020-03-15] MEDS ORDERED: POTASSIUM CHLORIDE ORAL LIQUID 20 MEQ/15 ML PO ONE (09:00)
[2020-03-15] MEDS: KCL 10 MEQ IVPB 10 MEQ/100 ML INFUS.BAG IVPB SCH ×3 (11:10→13:37)
[2020-03-15] MEDS ORDERED: INSULIN (NOVOLOG) ASPART 100 UNITS/ML 10ML VIAL ONE (11:17)
--- NOTE | 2020-03-15 14:05 | DS ---
Physical Exam: SUBJECTIVE: Patient seen and examined at bedside. Denies acute complaints. OBJECTIVE: Vital Signs Period Temp Pulse Resp BP Sys/Faust Pulse Ox Last 24 Hr 98.3 F-98.7 F 69-98 18-20 115-135/67-88 100-100 PHYSICAL EXAM GENERAL: The patient is awake, alert, and fully oriented, in no acute distress. HEAD: Normocephalic, atraumatic. Temporal wasting noted. EYES: PERRL, extraocular movements intact, sclera anicteric, conjunctiva clear. ENT: Oropharynx clear, without erythema or exudates. Moist mucous membranes. NECK: Trachea midline, full range of motion. Supple without lymphadenopathy. LUNGS: Breath sounds equal, clear to auscultation bilaterally. No wheezes, no crackles. No accessory muscle use. HEART: Regular rate and rhythm. S1, S2 without murmur, rub or gallop. ABDOMEN: Soft, nondistended, nontender to light and deep palpation x4 quadrants. No rebound tenderness, no guarding. Normoactive bowel sounds x4 quadrants. No hepatosplenomegaly, no masses appreciated. EXTREMITIES: 2+ radial, dorsalis pedis pulses bilaterally. Warm, well-perfused. No lower extremity edema bilaterally. NEUROLOGICAL: Cranial nerves II through XII grossly intact. Normal speech. No gross focal deficits. PSYCH: Normal mood, normal affect upon my encounter. SKIN: Large vertical abdominal scar noted, well healed, dry. LABS Laboratory Results - last 24 hr 03/12/20 03/14/20 03/14/20 21:52 15:43 15:43 WBC RBC Hgb Hct MCV MCH MCHC RDW Plt Count MPV Absolute Neuts (auto) Neutrophils % Lymphocytes % Monocytes % Eosinophils % Basophils % Nucleated RBC % ESR Sodium 141 Potassium 3.3 L Chloride 100 Carbon Dioxide 34 H Anion Gap 7 L BUN 11.5 Creatinine 0.8 Est GFR (CKD-EPI)AfAm 140.90 Est GFR (CKD-EPI)NonAf 121.57 POC Glucometer Random Glucose 140 H Calcium 9.3 Phosphorus Magnesium 1.4 L Total Bilirubin AST ALT Alkaline Phosphatase LD Total 156 C-Reactive Protein < 0.3 Total Protein Albumin TSH 1.11 Rheumatoid Factor < 10.0 COVID-19 (JUDITH) Not detected 03/14/20 03/14/20 03/14/20 15:43 16:19 19:55 WBC 5.6 RBC 4.30 Hgb 13.6 Hct 40.2 MCV 93.4 MCH 31.7 MCHC 33.9 RDW 12.8 Plt Count 116 L MPV 10.8 Absolute Neuts (auto) 2.8 Neutrophils % 49.4 Lymphocytes % 40.1 H Monocytes % 8.8 Eosinophils % 1.4 Basophils % 0.3 Nucleated RBC % 0 ESR 5 Sodium Potassium Chloride Carbon Dioxide Anion Gap BUN Creatinine Est GFR (CKD-EPI)AfAm Est GFR (CKD-EPI)NonAf POC Glucometer 152 Random Glucose Calcium Phosphorus Magnesium Total Bilirubin AST ALT Alkaline Phosphatase LD Total C-Reactive Protein Total Protein Albumin TSH Rheumatoid Factor COVID-19 (JUDITH) 03/14/20 03/15/20 03/15/20 22:56 06:00 06:20 WBC RBC Hgb Hct MCV MCH MCHC RDW Plt Count MPV Absolute Neuts (auto) Neutrophils % Lymphocytes % Monocytes % Eosinophils % Basophils % Nucleated RBC % ESR Sodium 140 Potassium 3.4 L Chloride 102 Carbon Dioxide 32 Anion Gap 6 L BUN 15.1 Creatinine 0.7 Est GFR (CKD-EPI)AfAm 148.85 Est GFR (CKD-EPI)NonAf 128.43 POC Glucometer 261 201 Random Glucose 156 H Calcium 9.0 Phosphorus 4.2 Magnesium 1.4 L Total Bilirubin 0.4 AST 35 ALT 53 Alkaline Phosphatase 119 H LD Total C-Reactive Protein Total Protein 5.8 L Albumin 2.9 L TSH Rheumatoid Factor COVID-19 (JUDITH) 03/15/20 11:23 WBC RBC Hgb Hct MCV MCH MCHC RDW Plt Count MPV Absolute Neuts (auto) Neutrophils % Lymphocytes % Monocytes % Eosinophils % Basophils % Nucleated RBC % ESR Sodium Potassium Chloride Carbon Dioxide Anion Gap BUN Creatinine Est GFR (CKD-EPI)AfAm Est GFR (CKD-EPI)NonAf POC Glucometer 193 Random Glucose Calcium Phosphorus Magnesium Total Bilirubin AST ALT Alkaline Phosphatase LD Total C-Reactive Protein Total Protein Albumin TSH Rheumatoid Factor COVID-19 (JUDITH) HOSPITAL COURSE: Date of Admission:03/12/20 Date of Discharge: 03/15/20 Patient is a 29 year old male with history of diabetes mellitus (new diagnosis), asthma, premature presents with complaint of fatigue. HgbA1c was 15. Evaluated by Endocrinology and started on Insulin Levemir 12 units BID. Endorsed unintentional weight loss of 20-30 pounds over the past month. Lymphocyte predominance on CBC prompted CT chest, abdomen, pelvis which did not reveal acute lymphadenopathy. Hypokalemia, Hypomagnesemia repleted. patient tolerating oral intake. Discharged home with Insulin 12 units subq BID, Glucometer device. Follow up with primary care physician, accounts receivable supervisor, and hematology/ oncology. Minutes to complete discharge: 36 Discharge Summary Problems reviewed: Yes Reason For Visit: FAILURE TO THRIVE HYPERGLYCEMIA HYPOKALEMIA Current Active Problems FTT (failure to thrive) in adult (Acute) Hyperglycemia (Acute) Hypokalemia (Acute) Condition: Stable - Instructions Diet, Activity, Other Instructions: You were admitted to the hospital for evaluation of fatigue. Your blood sugars were noted to be dangerously elevated (greater than 500) and you were evaluated by the accounts receivable supervisor and treated with Insulin. Continue taking your home medications as directed You will take Insulin 12 units subcutaneously in the morning, and Insulin 12 units subcutaneously in the evening. Check your blood sugars in the mornings before breakfast and two hours after your meals. Record your blood glucose readings and discuss with your accounts receivable supervisor. Your blood work revealed elevated levels of Lymphocytes (a type of white blood cell). You had CT scans done which did not reveal any concerning findings. However, you may require repeat CT scan with contrast for further workup. Discuss this with your primary care physician, and do all operator. You will also follow up the results of blood work that was drawn during your hospitalization. Follow up with your primary care physician (dr. Lopez) within one -two days after discharge. A referral has been provided. Follow up with Soda Fountain Operator (Dr Howell) within one week of discharge. A referral has been provided. Follow up with Carpentry Foreman-oncologist (Dr. Moran) within one - two weeks after discharge Return to the nearest emergency department if you experience worsening symptoms, subjective fevers, chills, shortness of breath, chest pain, palpitations, abdominal pain, nausea, vomiting, any trauma or loss of consciousness. Referrals: Willy Lopez MD [Primary Care Provider] - 1 Week (Diabetes, lymphocytosis noted on CBC durng hospitalization. To follow up with hematology/ oncology and requires CT scan chest, Abdomen, Pelvis with IV contrast. ) Ofelia Moran MD [Staff Physician] - 1 Week (Weight loss over past month (approx 25 pounds)) Andreas Howell MD [Staff Physician] - 1 Week (Diabetes ) Disposition: HOME - Home Medications Comprehensive Discharge Medication List: Ambulatory Orders Alcohol Antiseptic Pads [Alcohol Prep Pad] 1 each TP ASDIR 30 Days #1 box 03/14/20 Insulin Detemir [Levemir Flextouch] 12 unit SQ BID 24 Days #3 [email or web address] 03/14/20 Lancets 1 each MC ASDIR 30 Days #1 box 03/14/20 Miscellaneous Medical Supply [Glucometer Device] 1 each .ROUTE ASDIR 30 Days #1 kit 03/14/20 Miscellaneous Medical Supply [Glucometer Test Strips #50] 1 each .ROUTE ASDIR 30 Days #1 box 03/14/20 Pen Needle, Diabetic [Pen Needle] 1 each MC ASDIR 30 Days #1 box 03/14/20 This patient is new to me today: No Emergency Visit: Yes ED Registration Date: 03/12/20 Care time: The patient presented to the Emergency Department on the above date and was hospitalized for further evaluation of their emergent condition. Critical Care patient: No - Discharge Referral Referred to [facility] Med P.C.: No ATTENDING PHYSICIAN STATEMENT I saw and evaluated the patient. I reviewed the resident's note and discussed the case with the resident. I agree with the resident's findings and plan as documented. SUBJECTIVE: OBJECTIVE: ASSESSMENT AND PLAN:
[2020-03-15 15:27] VITALS: BP 119/73; PULSE 90; TEMP 98.7
--- NOTE | 2020-03-15 17:44 | PN ---
Teaching Attending Note Name of Resident: Herminio Leonard ATTENDING PHYSICIAN STATEMENT I saw and evaluated the patient. I reviewed the resident's note and discussed the case with the resident. I agree with the resident's findings and plan as documented. SUBJECTIVE: OBJECTIVE: Afebrile, Hemodynamically Stable. Last Vital Signs Temp Pulse Resp BP Pulse Ox 98.7 F 90 20 119/73 100 03/15/20 15:25 03/15/20 15:25 03/15/20 15:25 03/15/20 15:25 03/14/20 22:00 HEENT - Atraumatic, Normocephalic. Heart - S1, S2, RRR lungs - clear to auscultation Abdomen - healed laparotomy scar Extremities - no edema, no calf tenderness. Neuro - AAO x 3. OTTO. Tone/Power normal all extremities. Laboratory Results - last 24 hr 03/12/20 03/14/20 03/14/20 21:52 19:55 22:56 WBC 5.6 RBC 4.30 Hgb 13.6 Hct 40.2 MCV 93.4 MCH 31.7 MCHC 33.9 RDW 12.8 Plt Count 116 L MPV 10.8 Absolute Neuts (auto) 2.8 Neutrophils % 49.4 Lymphocytes % 40.1 H Monocytes % 8.8 Eosinophils % 1.4 Basophils % 0.3 Nucleated RBC % 0 Sodium Potassium Chloride Carbon Dioxide Anion Gap BUN Creatinine Est GFR (CKD-EPI)AfAm Est GFR (CKD-EPI)NonAf POC Glucometer 261 Random Glucose Calcium Phosphorus Magnesium Total Bilirubin AST ALT Alkaline Phosphatase Total Protein Albumin COVID-19 (JUDITH) Not detected 03/15/20 03/15/20 03/15/20 06:00 06:20 11:23 WBC RBC Hgb Hct MCV MCH MCHC RDW Plt Count MPV Absolute Neuts (auto) Neutrophils % Lymphocytes % Monocytes % Eosinophils % Basophils % Nucleated RBC % Sodium 140 Potassium 3.4 L Chloride 102 Carbon Dioxide 32 Anion Gap 6 L BUN 15.1 Creatinine 0.7 Est GFR (CKD-EPI)AfAm 148.85 Est GFR (CKD-EPI)NonAf 128.43 POC Glucometer 201 193 Random Glucose 156 H Calcium 9.0 Phosphorus 4.2 Magnesium 1.4 L Total Bilirubin 0.4 AST 35 ALT 53 Alkaline Phosphatase 119 H Total Protein 5.8 L Albumin 2.9 L COVID-19 (JUDITH) Discharge Medications Medication Instructions Recorded Alcohol Antiseptic Pads [Alcohol 1 each TP ASDIR 30 Days #1 box 03/14/20 Prep Pad] Insulin Detemir [Levemir Flextouch] 12 unit SQ BID 24 Days #3 03/14/20 [email or web address] Lancets 1 each ASDIR 30 Days #1 box 03/14/20 Miscellaneous Medical Supply 1 each .ROUTE ASDIR 30 Days #1 kit 03/14/20 [Glucometer Device] Miscellaneous Medical Supply 1 each .ROUTE ASDIR 30 Days #1 box 03/14/20 [Glucometer Test Strips #50] Pen Needle, Diabetic [Pen Needle] 1 each MC ASDIR 30 Days #1 box 03/14/20 ASSESSMENT AND PLAN: 29 year old male with history of Asthma, premature and s/p Nephrectomy as an infant, presents with lethargy, weight loss, polyuria, polydipsia, hyperglycemia in the 600s. 1. Newly diagnosed Diabetes Mellitus, presumably Type 2 A1C 15 Evaluated by Endocrinology and started on an insulin regimen Educated regarding DM and importance of daily fingerstick glucose monitoring and insulin injection. Endocrinology and PCP follow up on discharge. 2. Lymphocytosis, likely reactive, resolving. Weight Loss sec to uncontrolled hyperglycemia. CT C/A/P - no lymphadenopathy or other acute findings. ESR, CRP, TSH, HIV, RF negative 3. Hypokalemia/Hypomagnesemia - repleted. 4. Mild Thrombocytopenia/Lymphocytosis - no bruising/bleeding/signs of infection - for Hematology referral on discharge. Medically optimized for discharge with Endocrinology and PCP follow up for DM management and health maintenance/Podiatry referral/Ophthalmology referral etc.
== END 2020-03-15 16:19 | disposition home or self-care (01) | DRG 420 ==
LOC: JER 20:03 → JERBED 21:33 → J8W 23:17
PROVIDERS: ADMIT Internal Medicine
DX: E11.65 Type 2 diabetes mellitus with hyperglycemia (principal); E87.6 Hypokalemia; D69.6 Thrombocytopenia, unspecified; E43 Unspecified severe protein-calorie malnutrition; H53.8 Other visual disturbances; D72.820 Lymphocytosis (symptomatic); R64 Cachexia; E83.42 Hypomagnesemia; R62.7 Adult failure to thrive; Z68.1 Body mass index [BMI] 19.9 or less, adult; Z90.5 Acquired absence of kidney; J45.909 Unspecified asthma, uncomplicated; M62.50 Muscle wasting and atrophy, not elsewhere classified, unspecified site
CPT/HCPCS: 36415; 71046-TC-FY; 71250-TC; 74176-TC; 80048; 80053; 81003; 82010; 82803; 82962; 83036; 83615; 83735; 84100; 84443; 85025; 85651; 86140; 86431; 87389; 90732; 93005; 93010; 99285-25; G0009; U0003

== ENCOUNTER 2020-03-30 04:19 | Emergency (ER) | payer OTHER ==
[2020-03-30 04:25] VITALS: BMI 17.2
--- NOTE | 2020-03-30 04:42 | PDOC ---
History of Present Illness - General Chief Complaint: Blood Sugar Problem Stated Complaint: ELEVATED BLOOD SUGAR Time Seen by Provider: 03/30/20 04:41 History Source: Patient Exam Limitations: No Limitations - History of Present Illness Initial Comments: 03/30/20 04:43 29yM w PMHx recently diagnosed IDDM presenting w 2wk generalized fatigue and hyperglycemia mid 300s. F/u w PCP 5d ago who suggested short acting inuslin to better control glucose but could not get an appointment with endo for the next 2 months. admitted for hyperglycemia BG 500s, DC w Dr Villasenor endo f/u and long acting insulin. Denies fever, cough, n/v, chest/ABD pain, urinary/bowel mvmt changes. Past History - Medical History Allergies/Adverse Reactions: Allergies Allergy/AdvReac Type Severity Reaction Status Date / Time shellfish derived Allergy Severe Difficulty Verified 03/30/20 04:25 Breathing shrimp Allergy Verified 03/30/20 04:25 shrimp Allergy Uncoded 03/30/20 04:25 Home Medications: Ambulatory Orders Alcohol Antiseptic Pads [Alcohol Prep Pad] 1 each TP ASDIR 30 Days #1 box 03/14/20 Insulin Detemir [Levemir Flextouch] 12 unit SQ BID 24 Days #3 insuln.pen 03/14 Lancets 1 each MC ASDIR 30 Days #1 box 03/14/20 Miscellaneous Medical Supply [Glucometer Device] 1 each .ROUTE ASDIR 30 Days #1 kit 03/14/20 Miscellaneous Medical Supply [Glucometer Test Strips #50] 1 each .ROUTE ASDIR 30 Days #1 box 03/14/20 Pen Needle, Diabetic [Pen Needle] 1 each MC ASDIR 30 Days #1 box 03/14/20 Asthma: Yes COPD: No Diabetes: Yes - Surgical History Orthopedic Surgery: Yes (orthoscopic) - Immunization History Immunization Up to Date: No - Psycho-Social/Smoking History Smoking Status: No Smoking History: Never smoked Have you smoked in the past 12 months: No Number of Cigarettes Smoked Daily: 0 Review of Systems - Review of Systems Constitutional: No: Chills, Fever HEENTM: No: Eye Pain, Ear Discharge Respiratory: No: Cough, Shortness of Breath Cardiac (ROS): No: Chest Pain, Lightheadedness ABD/GI: No: Abdominal Distended, Constipated, Diarrhea, Nausea, Vomiting : No: Burning, Dysuria Musculoskeletal: No: Back Pain, Joint Pain Integumentary: No: Bruising, Dryness Neurological: No: Headache, Seizure Psychiatric: No: Anxiety, Depression Endocrine: No: Intolerance to Cold, Intolerance to Heat Hematologic/Lymphatic: No: Anemia, Blood Clots *Physical Exam - Vital Signs Last Vital Signs Temp Pulse Resp BP Pulse Ox 99.1 F 99 H 18 120/82 99 03/30/20 04:21 03/30/20 04:21 03/30/20 04:21 03/30/20 04:21 03/30/20 04:21 - Physical Exam General Appearance: Yes: Nourished, Appropriately Dressed. No: Apparent Distress HEENT: positive: EOMI, OTTO, Normal Voice, Hearing Grossly Normal. negative: S cleral Icterus (R), Scleral Icterus (L) Respiratory/Chest: positive: Lungs Clear, Normal Breath Sounds. negative: Chest Tender, Respiratory Distress Cardiovascular: positive: Regular Rhythm, Regular Rate, S1, S2. negative: Edema, Murmur Gastrointestinal/Abdominal: positive: Normal Bowel Sounds, Flat, Soft. negative: Tender, Organomegaly Integumentary: positive: Normal Color, Warm Neurologic: positive: Fully Oriented, Alert, Normal Mood/Affect, Normal Response, Responsive ED Treatment Course - LABORATORY CBC & Chemistry Diagram: 03/30/20 05:11 03/30/20 05:10 Medical Decision Making - Medical Decision Making 03/30/20 04:58 CXR - clear lung salvador EKG - NSR, HR 78, QTc 399, no ST changes --- 29yM w PMHx recently diagnosed IDDM presenting w 2wk generalized fatigue and hyperglycemia BG 370. Not DKA (bicarb>18) Given 2L NS DC home w multiple drug safety scientist referrals - after 2nd L NS given Discharge - Discharge Information Problems reviewed: Yes Clinical Impression/Diagnosis: Hyperglycemia Condition: Improved Disposition: HOME - Follow up/Referral Referrals: Pancho Lemon MD [Staff Physician] - Andreas Howell MD [Staff Physician] - Rita Rod MD [Staff Physician] - Miky Correa MD [Staff Physician] - Veronika Doe MD [Staff Physician] - Alejandra Soria MD [Staff Physician] - - Patient Discharge Instructions Patient Printed Discharge Instructions: DI for Hyperglycemia -- Adult Additional Instructions: Your high blood glucose was treated. Please follow up with one of the referred endocrinologists. - Post Discharge Activity
[2020-03-30] MEDS ORDERED: SODIUM CHLORIDE 0.9% 500 ML INFUS.BAG IV ONE ×2 (04:56→06:30)
[2020-03-30 05:45] LABS: BASO % 1.5 % (0-2.0); EOS % 1.3 % (0-4.5); HEMATOCRIT 39.7 % (35.4-49); HEMOGLOBIN 13.8 GM/dL (11.7-16.9); LYMPH % 47.9 % (8-40); MCH 31.7 pg (25.7-33.7); MCHC 34.7 g/dl (32.0-35.9); MEAN CELL VOLUME 91.3 fl (80-96); MEAN PLT VOLUME 10.1 fl (7.5-11.1); MONO % 4.9 % (3.8-10.2); NEUT % 44.4 % (42.8-82.8); PLATELET COUNT 128 K/MM3 (134-434); RBC 4.35 M/mm3 (4.00-5.60); WHITE BLOOD COUNT 5.3 K/mm3 (4.0-10.0)
[2020-03-30 05:47] LABS: URINE APPEARANCE CLEAR; URINE BILIRUBIN NEGATIVE (NEGATIVE); URINE COLOR YELLOW; URINE GLUCOSE (UA) 3+ (NEGATIVE); URINE KETONE TRACE (NEGATIVE); URINE LEUK ESTERASE NEGATIVE (NEGATIVE); URINE NITRITE NEGATIVE (NEGATIVE); URINE PROTEIN NEGATIVE (NEGATIVE); URINE UROBILINOGEN 0.2 mg/dL (0.2-1.0)
[2020-03-30 06:28] LABS: ALBUMIN 3.4 g/dl (3.4-5.0); ALK PHOS 118 U/L (45-117); ANION GAP 6 MMOL/L (8-16); BILIRUBIN,TOTAL 0.4 mg/dL (0.2-1); BLOOD UREA NITROGEN 22.2 mg/dL (7-18); CALCIUM 9.8 mg/dL (8.5-10.1); CHLORIDE 96 mmol/L (98-107); CO2 34 mmol/L (21-32); GLUCOSE,RANDOM 370 mg/dL (74-106); POTASSIUM 4.1 mmol/L (3.5-5.1); SGOT/AST 25 U/L (15-37); SGPT/ALT 46 U/L (13-61); SODIUM 135 mmol/L (136-145); TOT PROT 6.7 g/dl (6.4-8.2)
--- NOTE | 2020-03-30 06:32 | PDOC ---
Attending Attestation - Resident Resident Name: Juan Hernandez - ED Attending Attestation I have performed the following: I have examined & evaluated the patient, The case was reviewed & discussed with the resident, I agree w/resident's findings & plan - HPI HPI: 03/30/20 06:54 see resident hpi - Physicial Exam PE: 03/30/20 06:56 see resident exam - Medical Decision Making 03/30/20 06:54 29-year-old male with history of recently diagnosed insulin-dependent diabetes with uncontrolled blood sugars There are no indicators of DKA based on labs Normal saline 2 L bolus given Plans for fingerstick and DC with prompt outpatient follow-up, initial blood sugar 370 Discharge - Discharge Information Problems reviewed: Yes Clinical Impression/Diagnosis: Hyperglycemia Condition: Improved Disposition: HOME - Follow up/Referral Referrals: Pancho Lemon MD [Staff Physician] - Andreas Howell MD [Staff Physician] - Rita Rod MD [Staff Physician] - Miky Correa MD [Staff Physician] - Veronika Doe MD [Staff Physician] - Alejandra Soria MD [Staff Physician] - - Patient Discharge Instructions Patient Printed Discharge Instructions: DI for Hyperglycemia -- Adult Additional Instructions: Your high blood glucose was treated. Please follow up with one of the referred endocrinologists. - Post Discharge Activity
[2020-03-30 07:29] VITALS: TEMP 98.2
[2020-03-30 08:06] VITALS: BP 136/86; PULSE 80
--- NOTE | 2020-03-30 09:30 | EKG ---
Test Reason : Blood Pressure : / mmHG Vent. Rate : 078 BPM Atrial Rate : 078 BPM P-R Int : 172 ms QRS Dur : 080 ms QT Int : 350 ms P-R-T Axes : 050 062 070 degrees QTc Int : 399 ms NORMAL SINUS RHYTHM EARLY REPOLARIZATION NORMAL ECG WHEN COMPARED WITH ECG OF 12-MAR-2020 22:01, NONSPECIFIC T WAVE ABNORMALITY HAS REPLACED INVERTED T WAVES IN ANTERIOR LEADS Confirmed by MD KENNA, JAROD ([id number]) on 03/30/2020 9:30:37 AM Referred By: Confirmed By:JAROD PIERSON MD
== END 2020-03-30 08:35 | disposition home or self-care (01) ==
LOC: JER 04:19
DX: R73.9 Hyperglycemia, unspecified (principal)
CPT/HCPCS: 36415; 71045-TC-FY; 80053; 81003; 82010; 82550; 82962; 84484; 85025; 87086; 93005; 93010; 99285-25

== ENCOUNTER 2020-06-16 12:11 | Emergency (ER) | payer OTHER ==
[2020-06-16 12:25] VITALS: TEMP 98.9; BMI 16.1
--- NOTE | 2020-06-16 13:14 | PDOC ---
History of Present Illness - General Chief Complaint: Back Pain Stated Complaint: TOTAL BODY WEAKNESS Time Seen by Provider: 06/16/20 12:37 History Source: Patient Exam Limitations: No Limitations - History of Present Illness Initial Comments: 06/16/20 13:15 Patient is a 29-year-old type I diabetic who presents to the ED with complaint of low back pain since losing roughly 30 pounds just prior to being diagnosed with diabetes. He states he was diagnosed in February 2020. The patient states that prior to his diagnosis he lost 30 pounds and believes this is the cause of his pain. He has been using Salonpas muscle patches which have been helping. He denies any fevers or chills. He states his sugars have been well controlled. He has been unable to follow-up with an sociology research assistant as the appointment was canceled. The patient states that he does not want to take any medications secondary to the recent diabetes diagnosis and only having one kidney. 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 The patient denies any dysuria or hematuria. He is allergic to shellfish. The patient denies any fecal or urinary incontinence or retention. Past History - Medical History Allergies/Adverse Reactions: Allergies Allergy/AdvReac Type Severity Reaction Status Date / Time shellfish derived Allergy Severe Difficulty Verified 06/16/20 12:19 Breathing shrimp Allergy Verified 06/16/20 12:19 shrimp Allergy Uncoded 06/16/20 12:19 Home Medications: Ambulatory Orders Alcohol Antiseptic Pads [Alcohol Prep Pad] 1 each TP ASDIR 30 Days #1 box 03/14/20 Insulin Detemir [Levemir Flextouch] 12 unit SQ BID 24 Days #3 insuln.pen 03/14/20 Lancets 1 each ASDIR 30 Days #1 box 03/14/20 Miscellaneous Medical Supply [Glucometer Device] 1 each .ROUTE ASDIR 30 Days #1 kit 03/14/20 Miscellaneous Medical Supply [Glucometer Test Strips #50] 1 each .ROUTE ASDIR 30 Days #1 box 03/14/20 Pen Needle, Diabetic [Pen Needle] 1 each MC ASDIR 30 Days #1 box 03/14/20 Asthma: Yes COPD: No Diabetes: Yes - Surgical History Orthopedic Surgery: Yes (orthoscopic) - Immunization History Immunization Up to Date: No - Psycho-Social/Smoking History Smoking Status: No Smoking History: Never smoked Have you smoked in the past 12 months: No Number of Cigarettes Smoked Daily: 0 - Substance Abuse Hx (Audit-C & DAST Scrn) How often the patient has a drink containing alcohol: Never Score: In Men: 4 or > Positive; In Women: 3 or > Positive: 0 Screen Result (Pos requires Nsg. Audit-10AR): Negative In the last yr the pt used illegal drug/Rx for NonMed reason: No Score: Yes response is considered Positive: 0 Screen Result (Positive result requires Nsg. DAST-10): Negative Review of Systems - Review of Systems Comments:: 06/16/20 13:17 - Review of Systems Able to Perform ROS?: Yes Constitutional: No: Fever, Chills, Loss of Appetite, Night Sweats, Weakness HEENTM: No: Eye Pain, Vision changes, Ear Pain, Throat Pain, Throat Swelling, Mouth Pain, Difficulty Swallowing Respiratory: No: Cough, Shortness of Breath, Wheezing, Sputum Production Cardiac (ROS): No: Chest Pain, Chest Tightness, Palpitations, Irregular Heart Beat, Edema ABD/GI: No: Nausea, Vomiting, Abdominal Pain, Diarrhea : No Dysuria, No Hematuria, No Frequency, No Urgency Musculoskeletal: No: Muscle Pain, Joint Pain, Muscle Weakness, Neck Pain; positive: Low back pain Integumentary: No: Lesions, Rash Neurological: No: Headache, Numbness, Tingling, Weakness, Speech Difficulties *Physical Exam - Vital Signs Last Vital Signs Temp Pulse Resp BP Pulse Ox 98.9 F 109 H 16 116/59 L 100 06/16/20 12:21 06/16/20 12:21 06/16/20 12:21 06/16/20 12:21 06/16/20 12:21 - Physical Exam 06/16/20 13:17 - Physical Exam General Appearance: Nourished, Appropriately Dressed, No Distress HEENT: EOMI, Normal Voice, Hearing Grossly Normal Neck: Supple, No Lymphadenopathy (R), No Lymphadenopathy (L), No Rigidity, No Decreased range of motion Respiratory/Chest: Lungs Clear, Normal Breath Sounds. No Respiratory Distress, No Accessory Muscle Use Cardiovascular: Regular Rhythm, Regular Rate, S1, S2 Gastrointestinal/Abdominal: Normal Bowel Sounds, Soft. Non-tender, No Guarding, No Rebound, No Rigidity Musculoskeletal: Normal Inspection. No Decreased Range of Motion; no reproducible midline back tenderness appreciated. Full range of motion appreciated. Walking without ataxia. Normal non-antalgic gait. Strength 5/5 bilateral lower extremities. Sensation intact distally. Extremity: Normal Capillary Refill, Normal Inspection Integumentary: Normal Color, Dry. No Rash Neurologic: billing administrator II-XII NML intact, Fully Oriented, Alert, Normal Mood/Affect, Normal Response ED Treatment Course - RADIOLOGY Radiology Studies Ordered: Category Date Time Status SPINE-LUMBAR ONLY [RAD] Stat Radiology 06/16/20 12:43 Completed Medical Decision Making - Medical Decision Making 06/16/20 13:10 Assessment: Patient is a 29-year-old male with low back pain likely from deconditioning since losing 30 pounds just prior to his diagnosis of diabetes. Plan: I have had an extensive discussion with the patient that he likely needs to put on weight and begin a workout regimen but should do so under the advice and guidance of an sociology research assistant. He is already taking Glucerna but should likely take a weight gain or but should do so after speaking with an sociology research assistant. The patient has 1 remaining kidney after nephrectomy as an . The patient has been made aware that his x-ray is negative for acute pathology. He will follow-up with endocrinology, referral given, for further evaluation and treatment. He understands and agrees to treatment plan and he is stable for discharge. Discharge - Discharge Information Problems reviewed: Yes Clinical Impression/Diagnosis: Low back pain Qualifiers: Chronicity: acute Back pain laterality: bilateral Sciatica presence: without sciatica Qualified Code(s): M54.5 - Low back pain Condition: Stable Disposition: HOME - Follow up/Referral Referrals: Willy Lpoez MD [Primary Care Provider] - Andreas Howell MD [Staff Physician] - Call tomorrow - Patient Discharge Instructions Patient Printed Discharge Instructions: DI for Low Back Pain Additional Instructions: Get plenty of rest and drink plenty of fluids. You likely need to be placed on a weight gaining supplement but should do so under the guidance of an sociology research assistant. I have given your referral to endocrinology for further evaluation and treatment. Continue to use the Salanpas patches if they are helping you. - Post Discharge Activity Work/Back to School Note: Back to Work
[2020-06-16 13:20] VITALS: BP 97/63; PULSE 115
== END 2020-06-16 13:21 | disposition home or self-care (01) ==
LOC: JERFT 12:11
DX: M54.5 Low back pain (principal)
CPT/HCPCS: 72100-TC-FY; 99283-25

== ENCOUNTER 2020-07-05 13:11 | Emergency (ER) | payer OTHER ==
[2020-07-05 13:40] VITALS: BP 106/68; PULSE 105; BMI 16.6
--- OUTSIDE RECORDS SUMMARY | 2020-07-05 13:44 | XMS ---
:1990 Author Organization [facility] Support Name Relationship Address Phone FRIDAYS Unavailable [address] [place] [address] SE Unavailable Unavailable Unavailable ANDRADE, STUDENT Unavailable Unavailable Unavailable ANDRADE Unavailable Unavailable Unavailable DOTTY LUNDBERG MOTHER [address] [phone] [place] [address] DOTTY LUNDBERG Mother [address] [place] [address] Re-disclosure Warning The records that you are about to access may contain information from federally- assisted alcohol or drug abuse programs. If such information is present, then the following federally mandated warning applies: This information has been disclosed to you from records protected by federal confidentiality rules (42 CFR part 2). The federal rules prohibit you from making any further disclosure of this information unless further disclosure is expressly permitted by the written consent of the person to whom it pertains or as otherwise permitted by 42 CFR part 2. A general authorization for the release of medical or other information is NOT sufficient for this purpose. The Federal rules restrict any use of the information to criminally investigate or prosecute any alcohol or drug abuse patient.The records that you are about to access may contain highly sensitive health information, the redisclosure of which is protected by Article 27-F of the [facility] Public Health law. If you continue you may haveaccess to information: Regarding HIV / AIDS; Provided by facilities licensed or operated by the [facility] Office of Mental Health; or Provided by the [facility] Office for People With Developmental Disabilities. If such information is present, then the following [facility] mandated warning applies: This information has been disclosed to you from confidential records which are protected by state law. State law prohibits you from making any further disclosure of this information without the specific written consent of the person to whom it pertains, or as otherwise permitted by law. Any unauthorized further disclosure in violation of state law may result in a fine or shelter sentence or both. A general authorization for the release of medical or other information is NOT sufficient authorization for further disclosure. Insurance Providers Payer name Policy type Policy ID Covered Covered constitution party's Policy P kajal / Coverage constitution party ID relationship to Nob[employer] Inf ormation type nobles AFFINITY [id number] SP [id number] ESSENTIAL PLAN 1 2 Results ID Date Data Source [id number] 03/12/2020 09:52:00 PM EDT [facility] Name Value Range Interpretation Description Data Sup porting Code Source(s) Document(s ) SARS [facility] CORONAVIRUS 2 RNA This lab was ordered by [facility] and reported by [facility]. Procedure
[2020-07-05 15:34] LABS: EOS % 0.8 % (0-4.5); HEMATOCRIT 37.7 % (35.4-49); LYMPH % 39.8 % (8-40); MCH 32.1 pg (25.7-33.7); MCHC 34.4 g/dl (32.0-35.9); MEAN CELL VOLUME 93.4 fl (80-96); MEAN PLT VOLUME 10.7 fl (7.5-11.1); NEUT % 52.4 % (42.8-82.8); PLATELET COUNT 131 K/MM3 (134-434); RBC 4.04 M/mm3 (4.00-5.60); RDW 12.6 % (11.9-15.9)
--- NOTE | 2020-07-05 15:40 | PDOC ---
History of Present Illness - General History Source: Patient Exam Limitations: No Limitations - History of Present Illness Initial Comments: 07/05/20 15:40 29-year-old male presents to ED with complaints of bilateral leg pain without weakness as initially stated in triage. Patient does state lower back pain which he was told was likely due to weight loss from previous visit. Patient states also was recently diagnosed with diabetes and has not seen the paper guillotine operator as of yet except for Zoom but does have an appointment in the next 2 weeks. Patient denies skin discoloration, edema, radiation of pain, or recent injury. Timing/Duration: intermittent Severity: mild Associated Symptoms: reports: denies symptoms. denies: weakness <Macy Dumont - Last Filed: 07/05/20 18:25> <Jaci Messer - Last Filed: 07/07/20 08:10> - General Chief Complaint: Pain, Acute Stated Complaint: LEG WEAKNESS Time Seen by Provider: 07/05/20 13:38 Past History - Travel History Traveled outside of the country in the last 30 days: No Close contact w/someone who was outside of country & ill: No - Medical History Asthma: Yes COPD: No Diabetes: Yes - Surgical History Orthopedic Surgery: Yes (orthoscopic) - Immunization History Immunization Up to Date: No - Psycho-Social/Smoking History Patient Lives Alone: No Lives with/in: parents Smoking Status: No Smoking History: Never smoked Have you smoked in the past 12 months: No Number of Cigarettes Smoked Daily: 0 - Substance Abuse Hx (Audit-C & DAST Scrn) How often the patient has a drink containing alcohol: Never Score: In Men: 4 or > Positive; In Women: 3 or > Positive: 0 Screen Result (Pos requires Nsg. Audit-10AR): Negative In the last yr the pt used illegal drug/Rx for NonMed reason: No Score: Yes response is considered Positive: 0 Screen Result (Positive result requires Nsg. DAST-10): Negative <Macy Dumont - Last Filed: 07/05/20 18:25> <Jaci Messer - Last Filed: 07/07/20 08:10> - Medical History Allergies/Adverse Reactions: Allergies Allergy/AdvReac Type Severity Reaction Status Date / Time shellfish derived Allergy Severe Difficulty Verified 07/05/20 13:39 Breathing shrimp Allergy Verified 07/05/20 13:39 shrimp Allergy Uncoded 07/05/20 13:39 Home Medications: Ambulatory Orders Alcohol Antiseptic Pads [Alcohol Prep Pad] 1 each TP ASDIR 30 Days #1 box 03/14/20 Insulin Detemir [Levemir Flextouch] 12 unit SQ BID 24 Days #3 insuln.pen 03/14/20 Lancets 1 each MC ASDIR 30 Days #1 box 03/14/20 Miscellaneous Medical Supply [Glucometer Device] 1 each .ROUTE ASDIR 30 Days #1 kit 03/14/20 Miscellaneous Medical Supply [Glucometer Test Strips #50] 1 each .ROUTE ASDIR 30 Days #1 box 03/14/20 Pen Needle, Diabetic [Pen Needle] 1 each MC ASDIR 30 Days #1 box 03/14/20 Review of Systems - Review of Systems Able to Perform ROS?: Yes Constitutional: No: Symptoms Reported HEENTM: No: Symptoms Reported Respiratory: No: Symptoms reported Cardiac (ROS): No: Symptoms Reported ABD/GI: No: Symptoms Reported : No: Symptoms Reported Musculoskeletal: Yes: Back Pain, Muscle Pain. No: Joint Pain, Muscle Weakness, Neck Pain Neurological: No: Symptoms reported Endocrine: No: Symptoms Reported Hematologic/Lymphatic: No: Symptoms Reported <Macy Dumont - Last Filed: 07/05/20 18:25> *Physical Exam - Vital Signs Last Vital Signs Temp Pulse Resp BP Pulse Ox 105 H 18 106/68 100 07/05/20 13:37 07/05/20 13:37 07/05/20 13:37 07/05/20 13:37 - Physical Exam General Appearance: Yes: Appropriately Dressed, Thin. No: Apparent Distress HEENT: negative: Pale Conjunctivae Neck: positive: Supple Respiratory/Chest: positive: Lungs Clear, Normal Breath Sounds. negative: Respiratory Distress, Accessory Muscle Use Cardiovascular: positive: Regular Rhythm, Tachycardia. negative: Murmur Gastrointestinal/Abdominal: positive: Soft. negative: Tenderness Extremity: positive: Normal Inspection, Normal Range of Motion. negative: Tender, Coldness, Swelling Integumentary: positive: Normal Color, Warm, Moist Neurologic: positive: Motor Strength 5/5 (Ambulatory) <Macy Dumont - Last Filed: 07/05/20 18:25> - Vital Signs Last Vital Signs Temp Pulse Resp BP Pulse Ox 105 H 18 106/68 100 07/05/20 13:37 07/05/20 13:37 07/05/20 13:37 07/05/20 13:37 <Jaci Messer - Last Filed: 07/07/20 08:10> ED Treatment Course - LABORATORY CBC & Chemistry Diagram: 07/05/20 15:00 07/05/20 15:00 <Macy Dumont - Last Filed: 07/05/20 18:25> - LABORATORY CBC & Chemistry Diagram: 07/05/20 15:00 07/05/20 19:50 - ADDITIONAL ORDERS Additional order review: Laboratory Results 07/05/20 15:00 Sodium 135 L Potassium 3.7 Chloride 94 L Carbon Dioxide 35 H Anion Gap 7 L BUN 8.9 Creatinine 1.2 Est GFR (CKD-EPI)AfAm 94.80 Est GFR (CKD-EPI)NonAf 81.80 Random Glucose 538 H* Calcium 9.4 Total Bilirubin 0.5 AST 18 ALT 47 Alkaline Phosphatase 108 Total Protein 6.7 Albumin 3.3 L 07/05/20 15:00 RBC 4.04 MCV 93.4 MCHC 34.4 RDW 12.6 MPV 10.7 Neutrophils % 52.4 Lymphocytes % 39.8 Monocytes % 6.0 Eosinophils % 0.8 Basophils % 1.0 <Jaci Messer - Last Filed: 07/07/20 08:10> Medical Decision Making - Medical Decision Making 07/05/20 15:42 Chief complaint: Patient with bilateral leg pain intermittently for the past few weeks. Patient has no other complaints. Except for mild low back pain. Exam: Patient is thin but otherwise normal physical exam. Plan: CBC, Chemistry,to assess for electrolyte imbalances 07/05/20 16:24 Laboratory Tests 07/05/20 07/05/20 15:00 15:00 WBC 6.0 RBC 4.04 Hgb 13.0 Hct 37.7 Plt Count 131 L Sodium 135 L Potassium 3.7 Chloride 94 L Carbon Dioxide 35 H Anion Gap 7 L BUN 8.9 Creatinine 1.2 Random Glucose 538 H* Calcium 9.4 Total Bilirubin 0.5 AST 18 ALT 47 Alkaline Phosphatase 108 Total Protein 6.7 Albumin 3.3 L Patient order for 2 L of fluids along with his Levemir insulin since he did not take it this morning of 12 units subcu cardiac profile, EKG, urine, IV fluids along with beta hydroxy and VBG 07/05/20 17:31 Patient will be given regular insulin after completion of 2 L of fluids 07/05/20 18:17 Laboratory Tests 07/05/20 07/05/20 16:40 16:40 Magnesium 1.5 L Creatine Kinase 143 Troponin I < 0.02 Patient ordered for 2 g of magnesium. If repeat glucose is 300 patient will be discharged home 07/05/20 18:25 Laboratory Tests 07/05/20 16:40 Beta-Hydroxybutyrate 3.9 H <Macy Dumont - Last Filed: 07/05/20 18:25> - Medical Decision Making The patient was seen and evaluated in conjunction with midlevel provider under my direct supervision, ancillary studies were reviewed. I agree with the plan as outlined with_GRISELDA Dumont. HPI, workup/dispo as outlined. VS reviewed, wnl known diabetic, type 1 started on new insulin regimen with his endo BGM 538, normal lytes will give fluids, insulin,recheck 07/05/20 16:20 <Jaci Messer - Last Filed: 07/07/20 08:10> Discharge <Macy Dumont - Last Filed: 07/05/20 18:25> - Discharge Information Problems reviewed: Yes <Jaci Messer - Last Filed: 07/07/20 08:10> - Discharge Information Clinical Impression/Diagnosis: Hyperglycemia, Hypomagnesemia Condition: Stable Disposition: AGAINST MEDICAL ADVICE - Follow up/Referral Referrals: Willy Lopez MD [Primary Care Provider] - - Patient Discharge Instructions - Post Discharge Activity
[2020-07-05 15:51] LABS: POTASSIUM 3.7 mmol/L (3.5-5.1)
[2020-07-05 15:53] LABS: CALCIUM 9.4 mg/dL (8.5-10.1)
[2020-07-05 15:54] LABS: ALBUMIN 3.3 g/dl (3.4-5.0); BLOOD UREA NITROGEN 8.9 mg/dL (7-18)
[2020-07-05 15:57] LABS: CREATININE 1.2 mg/dL (0.55-1.3)
[2020-07-05 15:58] LABS: BILIRUBIN,TOTAL 0.5 mg/dL (0.2-1); TOT PROT 6.7 g/dl (6.4-8.2)
[2020-07-05] MEDS ORDERED: SODIUM CHLORIDE 1,000 ML IV STA ×2 (16:11→16:12)
[2020-07-05] MEDS ORDERED: INSULIN (LEVEMIR) 100 UNITS/ML UNITS SQ ONE ×2 (16:23→16:33)
[2020-07-05 17:41] LABS: VENOUS BASE EXCESS 6.2 mmol/L (-2-2); VENOUS O2 SATURATION 49.8 % (70-80); VENOUS PCO2 55.8 mmHg (38-52); VENOUS PH 7.387 (7.310-7.410)
[2020-07-05] MEDS ORDERED: INSULIN REGULAR HUMAN 100 UNITS/ML *VIAL SQ ONE (17:57)
[2020-07-05 17:58] LABS: MAGNESIUM 1.5 mg/dL (1.8-2.4)
[2020-07-05] MEDS ORDERED: MAGNESIUM SULF 50% (8.12 MEQ/2 ML-1 GM VIAL) IVPB ONE (18:14)
[2020-07-05] MEDS ORDERED: MAGNESIUM SULFATE IN WATER 2 GM/50 ML IVPB IVPB ONE (18:16)
[2020-07-05 19:06] LABS: URINE APPEARANCE CLEAR; URINE BILIRUBIN NEGATIVE (NEGATIVE); URINE COLOR YELLOW; URINE GLUCOSE (UA) 3+ (NEGATIVE); URINE KETONE NEGATIVE (NEGATIVE); URINE LEUK ESTERASE NEGATIVE (NEGATIVE); URINE NITRITE NEGATIVE (NEGATIVE); URINE PROTEIN NEGATIVE (NEGATIVE); URINE UROBILINOGEN 0.2 mg/dL (0.2-1.0)
--- NOTE | 2020-07-05 20:18 | PDOC ---
*Physical Exam - Vital Signs Last Vital Signs Temp Pulse Resp BP Pulse Ox 105 H 18 106/68 100 07/05/20 13:37 07/05/20 13:37 07/05/20 13:37 07/05/20 13:37 - Physical Exam General Appearance: Yes: Appropriately Dressed, Cachetic. No: Apparent Distress Extremity: positive: Normal Capillary Refill, Normal Inspection, Normal Range of Motion Integumentary: positive: Normal Color, Dry, Warm Neurologic: positive: Fully Oriented, Alert, Normal Mood/Affect ED Treatment Course - LABORATORY CBC & Chemistry Diagram: 07/05/20 15:00 07/05/20 19:50 - ADDITIONAL ORDERS Additional order review: Laboratory Results 07/05/20 07/05/20 07/05/20 18:30 18:28 17:12 VBG pH POC VBG pCO2 POC VBG pO2 VBG HCO3 VBG O2 Sat (Kavon) VBG Base Excess Sodium Potassium Chloride Carbon Dioxide Anion Gap BUN Creatinine Est GFR (CKD-EPI)AfAm Est GFR (CKD-EPI)NonAf POC Glucometer 452 456 Random Glucose Calcium Magnesium Total Bilirubin AST ALT Alkaline Phosphatase Creatine Kinase Troponin I Total Protein Albumin Beta-Hydroxybutyrate Urine Color Yellow Urine Appearance Clear Urine pH 7.0 D Ur Specific [place] 1.026 Urine Protein Negative Urine Glucose (UA) 3+ H Urine Ketones Negative Urine Blood Negative Urine Nitrite Negative Urine Bilirubin Negative Urine Urobilinogen 0.2 Ur Leukocyte Esterase Negative 07/05/20 07/05/20 07/05/20 16:40 16:40 16:40 VBG pH 7.387 POC VBG pCO2 55.8 H POC VBG pO2 27.7 L VBG HCO3 32.8 H VBG O2 Sat (Kavon) 49.8 L VBG Base Excess 6.2 H Sodium Potassium Chloride Carbon Dioxide Anion Gap BUN Creatinine Est GFR (CKD-EPI)AfAm Est GFR (CKD-EPI)NonAf POC Glucometer Random Glucose Calcium Magnesium 1.5 L Total Bilirubin AST ALT Alkaline Phosphatase Creatine Kinase 143 Troponin I < 0.02 Total Protein Albumin Beta-Hydroxybutyrate 3.9 H Urine Color Urine Appearance Urine pH Ur Specific [place] Urine Protein Urine Glucose (UA) Urine Ketones Urine Blood Urine Nitrite Urine Bilirubin Urine Urobilinogen Ur Leukocyte Esterase 07/05/20 15:00 VBG pH POC VBG pCO2 POC VBG pO2 VBG HCO3 VBG O2 Sat (Kavon) VBG Base Excess Sodium 135 L Potassium 3.7 Chloride 94 L Carbon Dioxide 35 H Anion Gap 7 L BUN 8.9 Creatinine 1.2 Est GFR (CKD-EPI)AfAm 94.80 Est GFR (CKD-EPI)NonAf 81.80 POC Glucometer Random Glucose 538 H* Calcium 9.4 Magnesium Total Bilirubin 0.5 AST 18 ALT 47 Alkaline Phosphatase 108 Creatine Kinase Troponin I Total Protein 6.7 Albumin 3.3 L Beta-Hydroxybutyrate Urine Color Urine Appearance Urine pH Ur Specific [place] Urine Protein Urine Glucose (UA) Urine Ketones Urine Blood Urine Nitrite Urine Bilirubin Urine Urobilinogen Ur Leukocyte Esterase 07/05/20 07/05/20 07/05/20 18:28 17:12 15:00 RBC 4.04 MCV 93.4 MCHC 34.4 RDW 12.6 MPV 10.7 Neutrophils % 52.4 Lymphocytes % 39.8 Monocytes % 6.0 Eosinophils % 0.8 Basophils % 1.0 POC Glucometer 452 456 - Medications Given in the ED: ED Medications Discontinued Medications Generic Name Dose Route Start Last Admin Trade Name Freq PRN Reason Stop Dose Admin Sodium Chloride 1,000 mls @ 1,000 mls/hr 07/05/20 16:11 07/05/20 16:15 Normal Saline - IV 07/05/20 17:10 1,000 mls/hr ASDIR STA Administration Sodium Chloride 1,000 mls @ 1,000 mls/hr 07/05/20 16:12 07/05/20 17:17 Normal Saline - IV 07/05/20 17:11 1,000 mls/hr ASDIR STA Administration Insulin Detemir 12 units 07/05/20 16:23 07/05/20 16:30 Levemir Vial SQ 07/05/20 16:24 12 units ONCE ONE Administration Insulin Human Regular 10 units 07/05/20 17:57 07/05/20 18:03 Novolin R Vial *For Ivpush Or Iv Drip Only* SQ 07/05/20 17:58 10 units ONCE ONE Administration Magnesium Sulfate 2 gm 07/05/20 18:14 07/05/20 18:30 Magnesium Sulfate IVPB 07/05/20 18:15 2 gm ONCE ONE Administration Medical Decision Making - Medical Decision Making 07/05/20 20:16 Patient reported that he is feeling better. With repeat BMP and mag pendin g.Patient tolerated p.o. we will continue to monitor 07/05/20 21:01 Blood sugar persistently high. Patient reports that he is feeling better however unable to establish nutrition or endocrinology follow-up outpatient. Offered patient admission for hyperglycemia patient refused and is signing out A GAINST MEDICAL ADVICE. Note: The patient insists on leaving the emergency dept and is signing out a gainst medical advice. The patient understands the risks and complications that may result from the refusal of medical care and admission which includes and permanent disability. The patient has the mental capacity of understanding the risks of refusing care and is capable of making an informed decision. The patient was instructed to return to the emergency department should change mind regarding medical care or should condition worsen. The patient signed the Against Medical Advice form. Discharge - Discharge Information Problems reviewed: Yes Clinical Impression/Diagnosis: Hyperglycemia, Hypomagnesemia Disposition: AGAINST MEDICAL ADVICE - Follow up/Referral Referrals: Willy Lopez MD [Primary Care Provider] - - Patient Discharge Instructions - Post Discharge Activity
[2020-07-05 20:26] LABS: POTASSIUM 3.4 mmol/L (3.5-5.1)
[2020-07-05 20:27] LABS: CALCIUM 8.7 mg/dL (8.5-10.1)
[2020-07-05 20:28] LABS: BLOOD UREA NITROGEN 9.8 mg/dL (7-18); MAGNESIUM 2.2 mg/dL (1.8-2.4)
[2020-07-05 20:31] LABS: CREATININE 0.9 mg/dL (0.55-1.3)
== END 2020-07-05 21:00 | disposition left against medical advice (07) ==
LOC: JER 13:11
PROC: 3E033GC Introduction of Other Therapeutic Substance into Peripheral Vein, Percutaneous Approach (ICD-10-PCS; principal; 2020-07-05)
PROC: 3E0337Z Introduction of Electrolytic and Water Balance Substance into Peripheral Vein, Percutaneous Approach (ICD-10-PCS; 2020-07-05)
DX: R73.9 Hyperglycemia, unspecified (principal); E83.42 Hypomagnesemia
CPT/HCPCS: 36415; 80048; 80053; 81003; 82010; 82550; 82803; 82962; 83735; 84484; 85025; 99284-25

== ENCOUNTER 2020-12-14 17:48 | Emergency (ER) | payer OTHER ==
[2020-12-14 18:02] VITALS: BP 119/86; PULSE 111; TEMP 98.3; BMI 16.4
[2020-12-14] MEDS ORDERED: LACTATED RINGERS SOLUTION 1000 ML INFUS.BAG IV ONE ×2 (19:36→19:43)
[2020-12-14] MEDS ORDERED: INSULIN REGULAR HUMAN 100 UNITS/ML *VIAL SQ ONE ×2 (19:47→23:03)
[2020-12-14] MEDS ORDERED: INSULIN REGULAR HUMAN 100 UNITS/ML *VIAL ONE ×2 (20:06→23:10)
[2020-12-14 20:17] LABS: PH,URINE 5.5 (5.0-8.0); URINE APPEARANCE CLEAR; URINE BILIRUBIN NEGATIVE (NEGATIVE); URINE COLOR YELLOW; URINE GLUCOSE (UA) 3+ (NEGATIVE); URINE KETONE NEGATIVE (NEGATIVE); URINE LEUK ESTERASE NEGATIVE (NEGATIVE); URINE NITRITE NEGATIVE (NEGATIVE); URINE PROTEIN NEGATIVE (NEGATIVE); URINE UROBILINOGEN 0.2 mg/dL (0.2-1.0)
[2020-12-14 20:18] LABS: BASO % 0.7 % (0-2.0); EOS % 0.8 % (0-4.5); HEMATOCRIT 40.6 % (35.4-49); HEMOGLOBIN 13.7 GM/dL (11.7-16.9); LYMPH % 36.3 % (8-40); MCH 31.2 pg (25.7-33.7); MCHC 33.9 g/dl (32.0-35.9); MEAN CELL VOLUME 92.2 fl (80-96); MEAN PLT VOLUME 10.9 fl (7.5-11.1); MONO % 7.3 % (3.8-10.2); NEUT % 54.9 % (42.8-82.8); PLATELET COUNT 126 K/MM3 (134-434); RDW 12.7 % (11.9-15.9); WHITE BLOOD COUNT 6.3 K/mm3 (4.0-10.0)
[2020-12-14 20:19] LABS: VENOUS BASE EXCESS 4.6 mmol/L (-2-2); VENOUS PCO2 56.7 mmHg (38-52); VENOUS PH 7.365 (7.310-7.410)
[2020-12-14 20:21] LABS: VENOUS O2 SATURATION 55.8 % (70-80)
[2020-12-14 20:38] LABS: CHLORIDE 91 mmol/L (98-107); POTASSIUM 4.1 mmol/L (3.5-5.1); SODIUM 130 mmol/L (136-145)
[2020-12-14 20:40] LABS: CALCIUM 9.4 mg/dL (8.5-10.1); MAGNESIUM 1.6 mg/dL (1.8-2.4)
[2020-12-14 20:41] LABS: ALBUMIN 3.4 g/dl (3.4-5.0); ANION GAP 6 MMOL/L (8-16); BLOOD UREA NITROGEN 11.2 mg/dL (7-18); CO2 34 mmol/L (21-32)
[2020-12-14 20:44] LABS: SGOT/AST 20 U/L (15-37); SGPT/ALT 40 U/L (13-61)
[2020-12-14 20:45] LABS: BILIRUBIN,TOTAL 0.5 mg/dL (0.2-1); TOT PROT 6.8 g/dl (6.4-8.2)
[2020-12-14 20:47] LABS: ALK PHOS 134 U/L (45-117)
[2020-12-14 20:50] LABS: GLUCOSE,RANDOM 653 mg/dL (74-106)
[2020-12-14] MEDS ORDERED: SODIUM CHLORIDE 0.9% 500 ML INFUS.BAG IV ONE (21:46)
== END 2020-12-15 00:44 | disposition home or self-care (01) ==
LOC: JER 17:48
DX: E11.65 Type 2 diabetes mellitus with hyperglycemia (principal); Z91.14 Patient's other noncompliance with medication regimen
CPT/HCPCS: 36415; 80053; 81003; 82010; 82803; 82962; 83735; 85025; 87086; 93005; 93010; 99284-25

== ENCOUNTER 2021-01-11 18:08 | Emergency (ER) | payer OTHER ==
[2021-01-11 18:36] VITALS: TEMP 99; BMI 16.9
[2021-01-11 21:39] LABS: BASO % 1.1 % (0-2.0); EOS % 0.9 % (0-4.5); HEMATOCRIT 37.7 % (35.4-49); HEMOGLOBIN 12.8 GM/dL (11.7-16.9); LYMPH % 39.2 % (8-40); MCH 30.9 pg (25.7-33.7); MCHC 33.9 g/dl (32.0-35.9); MEAN CELL VOLUME 91.2 fl (80-96); MEAN PLT VOLUME 10.3 fl (7.5-11.1); MONO % 5.9 % (3.8-10.2); NEUT % 52.9 % (42.8-82.8); PLATELET COUNT 141 K/MM3 (134-434); RBC 4.13 M/mm3 (4.00-5.60); RDW 12.6 % (11.9-15.9); WHITE BLOOD COUNT 6.5 K/mm3 (4.0-10.0)
[2021-01-11] MEDS ORDERED: SODIUM CHLORIDE 1,000 ML IV STA (21:41)
[2021-01-11 21:44] LABS: VENOUS BASE EXCESS 8.4 mmol/L (-2-2); VENOUS O2 SATURATION 89.5 % (70-80); VENOUS PCO2 49.7 mmHg (38-52); VENOUS PH 7.451 (7.310-7.410)
[2021-01-11 21:46] LABS: CHLORIDE 93 mmol/L (98-107); SODIUM 132 mmol/L (136-145)
[2021-01-11 21:48] LABS: ALBUMIN 3.1 g/dl (3.4-5.0); CALCIUM 8.9 mg/dL (8.5-10.1)
[2021-01-11 21:50] LABS: ANION GAP 6 MMOL/L (8-16); CO2 34 mmol/L (21-32)
[2021-01-11 21:52] LABS: SGOT/AST 31 U/L (15-37); SGPT/ALT 39 U/L (13-61)
[2021-01-11 21:53] LABS: BILIRUBIN,TOTAL 0.5 mg/dL (0.2-1); CREATININE 1.1 mg/dL (0.55-1.3)
[2021-01-11 21:54] LABS: ALK PHOS 136 U/L (45-117); TOT PROT 6.5 g/dl (6.4-8.2)
[2021-01-11] MEDS ORDERED: LACTATED RINGERS SOLUTION 1000 ML INFUS.BAG IV ONE (22:01)
[2021-01-11 22:04] LABS: MAGNESIUM 1.7 mg/dL (1.8-2.4)
[2021-01-11 22:39] LABS: GLUCOSE,RANDOM 570 mg/dL (74-106)
[2021-01-11 23:27] LABS: URINE APPEARANCE CLEAR; URINE BILIRUBIN NEGATIVE (NEGATIVE); URINE COLOR YELLOW; URINE GLUCOSE (UA) 3+ (NEGATIVE); URINE KETONE NEGATIVE (NEGATIVE); URINE LEUK ESTERASE NEGATIVE (NEGATIVE); URINE NITRITE NEGATIVE (NEGATIVE); URINE PROTEIN NEGATIVE (NEGATIVE); URINE UROBILINOGEN 0.2 mg/dL (0.2-1.0)
[2021-01-11] MEDS ORDERED: INSULIN REGULAR HUMAN 100 UNITS/ML *VIAL SQ ONE (23:57)
[2021-01-12 00:19] VITALS: BP 110/64; PULSE 94
== END 2021-01-12 00:19 | disposition home or self-care (01) ==
LOC: JER 18:08
PROC: 3E0337Z Introduction of Electrolytic and Water Balance Substance into Peripheral Vein, Percutaneous Approach (ICD-10-PCS; principal; 2021-01-11)
DX: E11.65 Type 2 diabetes mellitus with hyperglycemia (principal); Z91.19 Patient's noncompliance with other medical treatment and regimen
CPT/HCPCS: 36415; 71045-TC-FY; 80053; 81003; 82010; 82803; 82962; 83735; 85025; 93005; 93010; 96360; 99284-25

== ENCOUNTER 2021-02-01 19:47 | Emergency (ER) | payer OTHER ==
[2021-02-01 20:17] VITALS: BP 107/71; PULSE 95; TEMP 98.6; BMI 16.9
[2021-02-01] MEDS ORDERED: LACTATED RINGERS SOLUTION 1000 ML INFUS.BAG IV STA ×2 (20:30→21:50)
[2021-02-01 20:55] LABS: BASO % 0.3 % (0-2.0); EOS % 0.8 % (0-4.5); HEMOGLOBIN 11.9 GM/dL (11.7-16.9); LYMPH % 30.5 % (8-40); MCH 31.4 pg (25.7-33.7); MCHC 33.9 g/dl (32.0-35.9); MEAN CELL VOLUME 92.6 fl (80-96); MEAN PLT VOLUME 10.6 fl (7.5-11.1); MONO % 6.7 % (3.8-10.2); NEUT % 61.7 % (42.8-82.8); PLATELET COUNT 121 K/MM3 (134-434); RBC 3.78 M/mm3 (4.00-5.60); RDW 12.6 % (11.9-15.9); WHITE BLOOD COUNT 6.2 K/mm3 (4.0-10.0)
[2021-02-01 20:57] LABS: URINE APPEARANCE CLEAR; URINE BILIRUBIN NEGATIVE (NEGATIVE); URINE COLOR YELLOW; URINE GLUCOSE (UA) 3+ (NEGATIVE); URINE KETONE NEGATIVE (NEGATIVE); URINE LEUK ESTERASE NEGATIVE (NEGATIVE); URINE NITRITE NEGATIVE (NEGATIVE); URINE PROTEIN NEGATIVE (NEGATIVE); URINE UROBILINOGEN 0.2 mg/dL (0.2-1.0); VENOUS BASE EXCESS 6.2 mmol/L (-2-2); VENOUS O2 SATURATION 84.8 % (70-80); VENOUS PCO2 49.5 mmHg (38-52); VENOUS PH 7.424 (7.310-7.410)
[2021-02-01 21:29] LABS: CHLORIDE 93 mmol/L (98-107); SODIUM 131 mmol/L (136-145)
[2021-02-01 21:31] LABS: CALCIUM 8.4 mg/dL (8.5-10.1)
[2021-02-01 21:32] LABS: ANION GAP 6 MMOL/L (8-16); BLOOD UREA NITROGEN 9.8 mg/dL (7-18); CO2 32 mmol/L (21-32); LIPASE 102 U/L (73-393); MAGNESIUM 1.2 mg/dL (1.8-2.4)
[2021-02-01 21:34] LABS: PHOSPHOROUS 2.4 mg/dL (2.5-4.9); SGPT/ALT 32 U/L (13-61)
[2021-02-01 21:35] LABS: CREATININE 1.1 mg/dL (0.55-1.3); SGOT/AST 19 U/L (15-37)
[2021-02-01 21:36] LABS: BILIRUBIN,TOTAL 0.5 mg/dL (0.2-1)
[2021-02-01 21:37] LABS: ALK PHOS 131 U/L (45-117)
[2021-02-01 21:43] LABS: GLUCOSE,RANDOM 630 mg/dL (74-106); LACTIC ACID 2.3 mmol/L (0.4-2.0)
[2021-02-01] MEDS ORDERED: POTASSIUM CHLORIDE TABS 20 MEQ TABLET.ER (FP) PO ONE ×2 (21:53→22:13)
[2021-02-01] MEDS ORDERED: MAGNESIUM SULF 50% (8.12 MEQ/2 ML-1 GM VIAL) IVPB ONE (21:53)
[2021-02-01] MEDS ORDERED: NAPH,MB-DB/K PH,MBDB POWDER PACKET PO ONE (21:54)
[2021-02-01] MEDS ORDERED: MAGNESIUM SULFATE IN WATER 2 GM/50 ML IVPB IVPB ONE (22:14)
[2021-02-01] MEDS ORDERED: NAPH,MB-DB/K PH,MBDB POWDER PACKET ONE (22:14)
[2021-02-01] MEDS ORDERED: INSULIN REGULAR HUMAN 100 UNITS/ML *VIAL IVPUSH ONE (22:58)
[2021-02-02 01:11] LABS: BLOOD UREA NITROGEN 9.6 mg/dL (7-18); CALCIUM 8.4 mg/dL (8.5-10.1)
[2021-02-02 01:12] LABS: MAGNESIUM 1.5 mg/dL (1.8-2.4)
[2021-02-02 01:14] LABS: CREATININE 0.8 mg/dL (0.55-1.3)
[2021-02-02] MEDS ORDERED: POTASSIUM CHLORIDE TABS 20 MEQ TABLET.ER (FP) PO ONE ×2 (01:22→02:01)
[2021-02-02 01:27] LABS: LACTIC ACID 2.6 mmol/L (0.4-2.0)
== END 2021-02-02 04:14 | disposition home or self-care (01) ==
LOC: JER 19:47
PROC: 3E013VG Introduction of Insulin into Subcutaneous Tissue, Percutaneous Approach (ICD-10-PCS; principal; 2021-02-01)
PROC: 3E033GC Introduction of Other Therapeutic Substance into Peripheral Vein, Percutaneous Approach (ICD-10-PCS; 2021-02-01)
DX: E10.65 Type 1 diabetes mellitus with hyperglycemia (principal); E87.6 Hypokalemia; E83.42 Hypomagnesemia
CPT/HCPCS: 36415; 71045-TC-FY; 80048; 80053; 81003; 82010; 82550; 82803; 82962; 83605; 83690; 83735; 83930; 84100; 84132; 84484; 85025; 93005; 93010; 99291

== ENCOUNTER 2021-03-06 19:17 | Observation (INO) | payer OTHER ==
[2021-03-06] MEDS ORDERED: SODIUM CHLORIDE 0.9% 500 ML INFUS.BAG IV ONE ×3 (20:08→21:47)
[2021-03-06 21:07] LABS: BASO % 0.7 % (0-2.0); EOS % 0.7 % (0-4.5); HEMATOCRIT 37.8 % (35.4-49); LYMPH % 36.3 % (8-40); MCH 31.4 pg (25.7-33.7); MCHC 34.5 g/dl (32.0-35.9); MEAN CELL VOLUME 90.9 fl (80-96); MEAN PLT VOLUME 10.1 fl (7.5-11.1); MONO % 6.9 % (3.8-10.2); NEUT % 55.4 % (42.8-82.8); PLATELET COUNT 142 10^3/uL (134-434); RBC 4.16 M/mm3 (4.00-5.60); RDW 12.9 % (11.9-15.9); WHITE BLOOD COUNT 6.6 K/mm3 (4.0-10.0)
[2021-03-06] MEDS ORDERED: INSULIN REGULAR HUMAN 100 UNITS/ML *VIAL IVPUSH ONE (21:09)
[2021-03-06 21:20] LABS: CHLORIDE 93 mmol/L (98-107); SODIUM 130 mmol/L (136-145)
[2021-03-06] MEDS ORDERED: POTASSIUM CHLORIDE TABS 20 MEQ TABLET.ER (FP) PO ONE ×2 (21:21→21:28)
[2021-03-06 21:27] LABS: ALBUMIN 3.3 g/dl (3.4-5.0); BLOOD UREA NITROGEN 17.1 mg/dL (7-18)
[2021-03-06 21:28] LABS: ANION GAP 12 MMOL/L (8-16); CO2 26 mmol/L (21-32); LIPASE 98 U/L (73-393)
[2021-03-06 21:30] LABS: CREATININE 1.4 mg/dL (0.55-1.3); SGOT/AST 23 U/L (15-37); SGPT/ALT 40 U/L (13-61)
[2021-03-06 21:32] LABS: BILIRUBIN,TOTAL 0.8 mg/dL (0.2-1); TOT PROT 6.6 g/dl (6.4-8.2)
[2021-03-06 21:33] LABS: ALK PHOS 130 U/L (45-117)
[2021-03-06 21:37] LABS: GLUCOSE,RANDOM > 500 mg/dL (74-106); VENOUS BASE EXCESS 1.6 mmol/L (-2-2); VENOUS O2 SATURATION 83.3 % (70-80); VENOUS PCO2 46.1 mmHg (38-52); VENOUS PH 7.387 (7.310-7.410)
[2021-03-06 22:34] LABS: PH,URINE 5.5 (5.0-8.0); URINE APPEARANCE CLEAR; URINE BILIRUBIN NEGATIVE (NEGATIVE); URINE COLOR YELLOW; URINE GLUCOSE (UA) 3+ (NEGATIVE); URINE KETONE NEGATIVE (NEGATIVE); URINE LEUK ESTERASE NEGATIVE (NEGATIVE); URINE NITRITE NEGATIVE (NEGATIVE); URINE PROTEIN NEGATIVE (NEGATIVE); URINE UROBILINOGEN 0.2 mg/dL (0.2-1.0)
[2021-03-06 23:23] LABS: CHLORIDE 102 mmol/L (98-107); SODIUM 138 mmol/L (136-145)
[2021-03-06 23:26] LABS: CALCIUM 8.5 mg/dL (8.5-10.1)
[2021-03-06 23:27] LABS: ALBUMIN 2.8 g/dl (3.4-5.0); BLOOD UREA NITROGEN 15.6 mg/dL (7-18); CO2 29 mmol/L (21-32); GLUCOSE,RANDOM 247 mg/dL (74-106)
[2021-03-06 23:30] LABS: CREATININE 1.1 mg/dL (0.55-1.3); SGOT/AST 12 U/L (15-37); SGPT/ALT 32 U/L (13-61)
[2021-03-06 23:31] LABS: BILIRUBIN,TOTAL 0.4 mg/dL (0.2-1); TOT PROT 5.4 g/dl (6.4-8.2)
[2021-03-06 23:32] LABS: ALK PHOS 108 U/L (45-117)
[2021-03-06 23:37] LABS: ANION GAP 7 MMOL/L (8-16)
[2021-03-07] MEDS ORDERED: KCL 10 MEQ IVPB 30 MEQ/300 ML INFUS.BAG IVPB ONE (00:33)
[2021-03-07] MEDS ORDERED: POTASSIUM CHLORIDE ORAL LIQUID 20 MEQ/15 ML ONE (00:33)
[2021-03-07] MEDS: SODIUM CHLORIDE 1,000 ML IV SCH (00:48)
[2021-03-07] MEDS: POTASSIUM CHLORIDE ORAL LIQUID 20 MEQ/15 ML PO ONE ×2 (00:48→02:23)
[2021-03-07] MEDS: KCL 10 MEQ IVPB 10 MEQ/100 ML INFUS.BAG IVPB SCH ×3 (00:48→03:51)
[2021-03-07 00:54] LABS: MAGNESIUM 1.3 mg/dL (1.8-2.4)
[2021-03-07] MEDS ORDERED: MAGNESIUM SULF 50% (8.12 MEQ/2 ML-1 GM VIAL) IVPB ONE (05:25)
[2021-03-07] MEDS ORDERED: MAGNESIUM SULFATE IN WATER 2 GM/50 ML IVPB IVPB ONE (06:10)
[2021-03-07] MEDS ORDERED: HEPARIN NA (PORCINE) 5,000 UNITS/ML 1ML VIAL ONE (06:10)
[2021-03-07] MEDS: HEPARIN NA (PORCINE) 5,000 UNITS/ML 1ML VIAL SQ SCH ×3 (06:21→21:27)
[2021-03-07 06:29] LABS: BASO % 1.1 % (0-2.0); EOS % 1.9 % (0-4.5); HEMATOCRIT 33.8 % (35.4-49); HEMOGLOBIN 11.5 GM/dL (11.7-16.9); LYMPH % 31.3 % (8-40); MCH 30.9 pg (25.7-33.7); MCHC 34.1 g/dl (32.0-35.9); MEAN CELL VOLUME 90.6 fl (80-96); MEAN PLT VOLUME 10.2 fl (7.5-11.1); MONO % 6.5 % (3.8-10.2); NEUT % 59.2 % (42.8-82.8); PLATELET COUNT 131 10^3/uL (134-434); RBC 3.73 M/mm3 (4.00-5.60); WHITE BLOOD COUNT 7.2 K/mm3 (4.0-10.0)
[2021-03-07 06:44] LABS: BLOOD UREA NITROGEN 13.9 mg/dL (7-18); CALCIUM 8.6 mg/dL (8.5-10.1)
[2021-03-07 06:45] LABS: ALBUMIN 2.8 g/dl (3.4-5.0); MAGNESIUM 1.1 mg/dL (1.8-2.4)
[2021-03-07 06:47] LABS: CREATININE 0.7 mg/dL (0.55-1.3)
[2021-03-07 06:48] LABS: PHOSPHOROUS 2.8 mg/dL (2.5-4.9)
[2021-03-07 06:49] LABS: BILIRUBIN,TOTAL 0.5 mg/dL (0.2-1); TOT PROT 5.5 g/dl (6.4-8.2)
[2021-03-07] MEDS: INSULIN (LEVEMIR) 100 UNITS/ML UNITS SQ SCH ×2 (10:06→21:26)
[2021-03-07 11:55] VITALS: BMI 17.5
[2021-03-07] MEDS: INSULIN SLIDING SCALE (NOVOLOG) 1 VIAL SQ SCH ×3 (12:09→21:25)
[2021-03-07] MEDS: MAGNESIUM OXIDE 400 MG TABLET (FP) PO SCH ×2 (14:42→21:27)
[2021-03-07] MEDS ORDERED: INSULIN (NOVOLOG) ASPART 100 UNITS/ML 10ML VIAL ONE (21:06)
[2021-03-08] MEDS: SODIUM CHLORIDE 1,000 ML IV SCH ×3 (06:10→17:56)
[2021-03-08] MEDS: HEPARIN NA (PORCINE) 5,000 UNITS/ML 1ML VIAL SQ SCH ×3 (06:11→21:24)
[2021-03-08] MEDS: INSULIN (LEVEMIR) 100 UNITS/ML UNITS SQ SCH ×2 (06:15→21:24)
[2021-03-08] MEDS: INSULIN SLIDING SCALE (NOVOLOG) 1 VIAL SQ SCH ×4 (06:16→21:25)
[2021-03-08] MEDS ORDERED: INSULIN (LEVEMIR) 100 UNITS/ML UNITS SQ ONE (08:30)
[2021-03-08 09:03] LABS: BASO % 0.6 % (0-2.0); HEMATOCRIT 37.6 % (35.4-49); HEMOGLOBIN 12.9 GM/dL (11.7-16.9); LYMPH % 34.8 % (8-40); MCH 31.6 pg (25.7-33.7); MCHC 34.2 g/dl (32.0-35.9); MEAN CELL VOLUME 92.4 fl (80-96); MEAN PLT VOLUME 9.8 fl (7.5-11.1); MONO % 6.5 % (3.8-10.2); NEUT % 56.1 % (42.8-82.8); PLATELET COUNT 142 10^3/uL (134-434); RBC 4.07 M/mm3 (4.00-5.60); WHITE BLOOD COUNT 5.7 K/mm3 (4.0-10.0)
[2021-03-08 09:29] LABS: BLOOD UREA NITROGEN 9.8 mg/dL (7-18); CALCIUM 8.5 mg/dL (8.5-10.1); MAGNESIUM 1.2 mg/dL (1.8-2.4)
[2021-03-08 09:33] LABS: CREATININE 0.7 mg/dL (0.55-1.3); PHOSPHOROUS 2.5 mg/dL (2.5-4.9)
[2021-03-08] MEDS: MAGNESIUM OXIDE 400 MG TABLET (FP) PO SCH ×2 (11:51→21:25)
[2021-03-08] MEDS ORDERED: MAGNESIUM 2GM/50ML STERILE WATER IVPB IVPB ONE (12:15)
[2021-03-08] MEDS ORDERED: MAGNESIUM SULF 50% (8.12 MEQ/2 ML-1 GM VIAL) IVPB ONE (12:29)
[2021-03-08] MEDS ORDERED: POTASSIUM CHLORIDE TABS 20 MEQ TABLET.ER (FP) PO ONE (12:30)
[2021-03-08 12:36] LABS: HIV INTERPRETATION NEGATIVE (NEGATIVE)
[2021-03-08] MEDS: NAPH,MB-DB/K PH,MBDB POWDER PACKET PO SCH (15:35)
[2021-03-09] MEDS: SODIUM CHLORIDE 1,000 ML IV SCH (06:44)
[2021-03-09] MEDS: INSULIN (LEVEMIR) 100 UNITS/ML UNITS SQ SCH (06:44)
[2021-03-09] MEDS: HEPARIN NA (PORCINE) 5,000 UNITS/ML 1ML VIAL SQ SCH (06:45)
[2021-03-09] MEDS ORDERED: INSULIN (NOVOLOG) ASPART 100 UNITS/ML 10ML VIAL ONE (06:51)
[2021-03-09 07:50] VITALS: TEMP 98.1
[2021-03-09 09:18] LABS: CALCIUM 8.5 mg/dL (8.5-10.1)
[2021-03-09 09:20] LABS: ALBUMIN 2.8 g/dl (3.4-5.0); BLOOD UREA NITROGEN 12.5 mg/dL (7-18); MAGNESIUM 1.4 mg/dL (1.8-2.4)
[2021-03-09] MEDS ORDERED: MAGNESIUM SULF 50% (8.12 MEQ/2 ML-1 GM VIAL) IVPB ONE (09:20)
[2021-03-09] MEDS ORDERED: POTASSIUM CHLORIDE TABS 20 MEQ TABLET.ER (FP) PO ONE ×2 (09:20→11:44)
[2021-03-09 09:22] LABS: CREATININE 0.5 mg/dL (0.55-1.3)
[2021-03-09 09:24] LABS: BILIRUBIN,TOTAL 0.7 mg/dL (0.2-1); TOT PROT 5.5 g/dl (6.4-8.2)
[2021-03-09] MEDS: NAPH,MB-DB/K PH,MBDB POWDER PACKET PO SCH (09:41)
[2021-03-09] MEDS: MAGNESIUM OXIDE 400 MG TABLET (FP) PO SCH (09:41)
[2021-03-09 09:59] VITALS: BP 112/69; PULSE 103
[2021-03-09] MEDS: INSULIN SLIDING SCALE (NOVOLOG) 1 VIAL SQ SCH (11:43)
== END 2021-03-09 13:06 | disposition home or self-care (01) ==
LOC: JER 19:17 → JERBED 23:12 → INTOOBSV 23:12 → J5S 03-07 10:37
PROVIDERS: ADMIT Internal Medicine; ATTEND Internal Medicine
PROC: 3E033VG Introduction of Insulin into Peripheral Vein, Percutaneous Approach (ICD-10-PCS; principal; 2021-03-06)
PROC: 3E013VG Introduction of Insulin into Subcutaneous Tissue, Percutaneous Approach (ICD-10-PCS; 2021-03-06)
PROC: 3E033GC Introduction of Other Therapeutic Substance into Peripheral Vein, Percutaneous Approach (ICD-10-PCS; 2021-03-06)
DX: E11.65 Type 2 diabetes mellitus with hyperglycemia (principal); Z79.4 Long term (current) use of insulin; N17.9 Acute kidney failure, unspecified; Q60.0 Renal agenesis, unilateral; E87.6 Hypokalemia; Z91.013 Allergy to seafood; N13.30 Unspecified hydronephrosis; R62.7 Adult failure to thrive; Z68.1 Body mass index [BMI] 19.9 or less, adult
CPT/HCPCS: 36415; 76775-TC; 80048; 80053; 81003; 82010; 82803; 82962; 83036; 83690; 83735; 84100; 84484; 85025; 87086; 87389; 93005; 93010; 96372; 96374; 96375; 96376; 99291; C9803; G0378; J1644; U0003; U0005

== ENCOUNTER 2021-04-10 11:39 | Emergency (ER) | payer OTHER ==
[2021-04-10 11:54] VITALS: TEMP 98.2; BMI 16.9
[2021-04-10] MEDS ORDERED: SODIUM CHLORIDE 0.9% 500 ML INFUS.BAG IV ONE (12:43)
[2021-04-10] MEDS ORDERED: Insulin (LOG) Aspart 100 UNITS/ML VIAL SQ SCH ×2 (12:51→16:30)
[2021-04-10] MEDS ORDERED: INSULIN (NOVOLOG) ASPART 100 UNITS/ML 10ML VIAL SQ ONE (12:55)
[2021-04-10 13:05] LABS: VENOUS BASE EXCESS 5.3 mmol/L (-2-2); VENOUS O2 SATURATION 50.3 % (70-80); VENOUS PCO2 54.7 mmHg (38-52); VENOUS PH 7.382 (7.310-7.410)
[2021-04-10 13:13] LABS: BASO % 1.9 % (0-2.0); EOS % 0.5 % (0-4.5); HEMATOCRIT 37.3 % (35.4-49); HEMOGLOBIN 12.7 GM/dL (11.7-16.9); LYMPH % 40.5 % (8-40); MCH 31.1 pg (25.7-33.7); MEAN CELL VOLUME 91.3 fl (80-96); MEAN PLT VOLUME 9.9 fl (7.5-11.1); MONO % 6.7 % (3.8-10.2); NEUT % 50.4 % (42.8-82.8); PLATELET COUNT 129 10^3/uL (134-434); RBC 4.08 M/mm3 (4.00-5.60); WHITE BLOOD COUNT 5.3 K/mm3 (4.0-10.0)
[2021-04-10 13:26] LABS: CALCIUM 9.3 mg/dL (8.5-10.1)
[2021-04-10 13:27] LABS: ALBUMIN 3.5 g/dl (3.4-5.0); BLOOD UREA NITROGEN 15.8 mg/dL (7-18)
[2021-04-10 13:31] LABS: BILIRUBIN,TOTAL 0.6 mg/dL (0.2-1); TOT PROT 6.5 g/dl (6.4-8.2)
[2021-04-10 13:46] VITALS: BP 134/92; PULSE 88
== END 2021-04-10 14:15 | disposition home or self-care (01) ==
LOC: JER 11:39
DX: E72.51 Non-ketotic hyperglycinemia (principal)
CPT/HCPCS: 36415; 80053; 82010; 82803; 82962; 85025; 99283-25

== ENCOUNTER 2021-05-29 23:04 | Emergency (ER) | payer OTHER ==
[2021-05-29 23:11] VITALS: BP 126/85; PULSE 104; TEMP 98.6; BMI 16.7
[2021-05-29] MEDS ORDERED: LACTATED RINGERS SOLUTION 1000 ML INFUS.BAG IV ONE (23:45)
[2021-05-30 01:08] LABS: VENOUS BASE EXCESS 5.8 mmol/L (-2-2); VENOUS PH 7.382 (7.310-7.410)
[2021-05-30 01:09] LABS: BASO % 0.6 % (0-2.0); EOS % 1.3 % (0-4.5); HEMATOCRIT 34.7 % (35.4-49); HEMOGLOBIN 12.3 GM/dL (11.7-16.9); LYMPH % 43.9 % (8-40); MCH 32.1 pg (25.7-33.7); MCHC 35.5 g/dl (32.0-35.9); MEAN CELL VOLUME 90.3 fl (80-96); MEAN PLT VOLUME 10.1 fl (7.5-11.1); MONO % 6.6 % (3.8-10.2); NEUT % 47.6 % (42.8-82.8); PLATELET COUNT 114 10^3/uL (134-434); RBC 3.84 M/mm3 (4.00-5.60); RDW 12.4 % (11.9-15.9); WHITE BLOOD COUNT 5.1 K/mm3 (4.0-10.0)
[2021-05-30 01:26] LABS: CHLORIDE 97 mmol/L (98-107); SODIUM 134 mmol/L (136-145)
[2021-05-30 01:28] LABS: CALCIUM 8.8 mg/dL (8.5-10.1)
[2021-05-30 01:29] LABS: ALBUMIN 3.2 g/dl (3.4-5.0); ANION GAP 5 MMOL/L (8-16); CO2 33 mmol/L (21-32)
[2021-05-30 01:32] LABS: CREATININE 1.1 mg/dL (0.55-1.3); SGOT/AST 11 U/L (15-37); SGPT/ALT 25 U/L (13-61)
[2021-05-30 01:33] LABS: BILIRUBIN,TOTAL 0.5 mg/dL (0.2-1); TOT PROT 6.5 g/dl (6.4-8.2)
[2021-05-30 01:34] LABS: ALK PHOS 92 U/L (45-117)
[2021-05-30] MEDS ORDERED: MAGNESIUM CITRATE 300 ML BOTTLE PO ONE (01:35)
[2021-05-30] MEDS ORDERED: POTASSIUM CHLORIDE TABS 20 MEQ TABLET.ER (FP) PO ONE ×2 (01:35→01:45)
[2021-05-30 01:39] LABS: GLUCOSE,RANDOM 474 mg/dL (74-106)
[2021-05-30] MEDS ORDERED: INSULIN (NOVOLOG) ASPART 100 UNITS/ML 10ML VIAL SQ ONE ×2 (01:44→01:47)
[2021-05-30] MEDS ORDERED: MAGNESIUM CITRATE 300 ML BOTTLE ONE (01:45)
== END 2021-05-30 02:23 | disposition home or self-care (01) ==
LOC: JER 23:04
PROC: 3E023GC Introduction of Other Therapeutic Substance into Muscle, Percutaneous Approach (ICD-10-PCS; principal; 2021-05-29)
DX: E11.65 Type 2 diabetes mellitus with hyperglycemia (principal); E87.6 Hypokalemia
CPT/HCPCS: 36415; 80053; 82010; 82803; 82962; 83735; 85025; 96372; 99284-25

== ENCOUNTER 2021-12-30 19:17 | Emergency (ER) | payer OTHER ==
[2021-12-30 19:41] VITALS: TEMP 98.6; BMI 38.0
[2021-12-30] MEDS ORDERED: SODIUM CHLORIDE 0.9% 500 ML INFUS.BAG IV ONE (20:25)
[2021-12-30 20:43] LABS: BASO % 1.6 % (0-2.0); EOS % 1.2 % (0-4.5); HEMATOCRIT 37.7 % (35.4-49); HEMOGLOBIN 12.8 GM/dL (11.7-16.9); LYMPH % 40.7 % (8-40); MCH 30.8 pg (25.7-33.7); MCHC 33.9 g/dl (32.0-35.9); MEAN CELL VOLUME 90.9 fl (80-96); MEAN PLT VOLUME 10.4 fl (7.5-11.1); NEUT % 49.5 % (42.8-82.8); PLATELET COUNT 135 10^3/uL (134-434); RBC 4.15 M/mm3 (4.00-5.60); RDW 12.5 % (11.9-15.9); WHITE BLOOD COUNT 5.9 K/mm3 (4.0-10.0)
[2021-12-30 20:46] LABS: VENOUS BASE EXCESS 4.8 mmol/L (-2-2); VENOUS O2 SATURATION 56.7 % (70-80); VENOUS PCO2 51.5 mmHg (38-52); VENOUS PH 7.395 (7.310-7.410)
[2021-12-30 21:01] LABS: CHLORIDE 94 mmol/L (98-107); SODIUM 135 mmol/L (136-145)
[2021-12-30 21:03] LABS: ALBUMIN 3.3 g/dl (3.4-5.0); ANION GAP 7 MMOL/L (8-16); CO2 34 mmol/L (21-32); MAGNESIUM 1.3 mg/dL (1.8-2.4)
[2021-12-30 21:04] LABS: BLOOD UREA NITROGEN 13.2 mg/dL (7-18)
[2021-12-30 21:06] LABS: SGPT/ALT 42 U/L (13-61)
[2021-12-30] MEDS ORDERED: MAGNESIUM SULF 50% (8.12 MEQ/2 ML-1 GM VIAL) IVPB ONE (21:06)
[2021-12-30] MEDS ORDERED: POTASSIUM CHLORIDE TABS 20 MEQ TABLET.ER (FP) PO ONE ×2 (21:06→21:35)
[2021-12-30 21:07] LABS: CREATININE 1.2 mg/dL (0.55-1.3); SGOT/AST 18 U/L (15-37)
[2021-12-30 21:08] LABS: BILIRUBIN,TOTAL 0.4 mg/dL (0.2-1); TOT PROT 6.8 g/dl (6.4-8.2)
[2021-12-30 21:09] LABS: ALK PHOS 153 U/L (45-117)
[2021-12-30 21:10] LABS: GLUCOSE,RANDOM 549 mg/dL (74-106)
[2021-12-30] MEDS ORDERED: MAGNESIUM SULFATE IN WATER 2 GM/50 ML IVPB IVPB ONE (21:35)
[2021-12-30] MEDS ORDERED: INSULIN REGULAR HUMAN 100 UNITS/ML *VIAL SQ ONE ×2 (22:41→23:05)
[2021-12-30 23:35] VITALS: BP 114/76; PULSE 84
== END 2021-12-30 23:48 | disposition home or self-care (01) ==
LOC: JER 19:17
PROC: 3E033GC Introduction of Other Therapeutic Substance into Peripheral Vein, Percutaneous Approach (ICD-10-PCS; principal; 2021-12-30)
DX: R73.9 Hyperglycemia, unspecified (principal); E87.6 Hypokalemia; E83.42 Hypomagnesemia
CPT/HCPCS: 36415; 80053; 82010; 82803; 82962; 83735; 85025; 93005; 93010; 96374; 99284-25

== ENCOUNTER 2022-02-05 12:47 | Emergency (ER) | payer OTHER ==
[2022-02-05 12:56] VITALS: BP 93/61; PULSE 109; TEMP 97.5; BMI 16.4
[2022-02-05] MEDS ORDERED: MECLIZINE HCL 25 MG TABLET (FP) PO ONE (13:18)
[2022-02-05] MEDS ORDERED: SODIUM CHLORIDE 0.9% 500 ML INFUS.BAG IV ONE ×3 (13:18→16:13)
[2022-02-05] MEDS ORDERED: MECLIZINE HCL 25 MG TABLET (FP) ONE (13:39)
[2022-02-05 14:36] LABS: BASO % 0.6 % (0-2.0); EOS % 0.3 % (0-4.5); HEMATOCRIT 36.5 % (35.4-49); HEMOGLOBIN 12.6 GM/dL (11.7-16.9); LYMPH % 24.6 % (8-40); MCH 31.3 pg (25.7-33.7); MCHC 34.6 g/dl (32.0-35.9); MEAN CELL VOLUME 90.4 fl (80-96); MEAN PLT VOLUME 9.8 fl (7.5-11.1); MONO % 4.9 % (3.8-10.2); NEUT % 69.6 % (42.8-82.8); PLATELET COUNT 139 10^3/uL (134-434); RBC 4.03 M/mm3 (4.00-5.60); RDW 12.8 % (11.9-15.9); WHITE BLOOD COUNT 5.7 K/mm3 (4.0-10.0)
[2022-02-05 14:37] LABS: VENOUS BASE EXCESS 3.4 mmol/L (-2-2); VENOUS O2 SATURATION 50.1 % (70-80); VENOUS PCO2 51.3 mmHg (38-52); VENOUS PH 7.378 (7.310-7.410)
[2022-02-05 15:05] LABS: ALBUMIN 3.2 g/dl (3.4-5.0); CALCIUM 9.7 mg/dL (8.5-10.1)
[2022-02-05 15:06] LABS: BLOOD UREA NITROGEN 16.8 mg/dL (7-18); MAGNESIUM 1.2 mg/dL (1.8-2.4)
[2022-02-05 15:09] LABS: CREATININE 0.9 mg/dL (0.55-1.3)
[2022-02-05 15:10] LABS: BILIRUBIN,TOTAL 0.5 mg/dL (0.2-1); TOT PROT 6.2 g/dl (6.4-8.2)
[2022-02-05] MEDS ORDERED: MAGNESIUM SULF 50% (8.12 MEQ/2 ML-1 GM VIAL) IVPB ONE (15:26)
[2022-02-05] MEDS ORDERED: ACETAMINOPHEN 1000 MG/100 ML BAG IVPB ONE ×2 (15:28→16:05)
[2022-02-05] MEDS ORDERED: KCL 10 MEQ IVPB 10 MEQ/100 ML INFUS.BAG IVPB SCH (15:30)
[2022-02-05] MEDS ORDERED: POTASSIUM CHLORIDE TABS 20 MEQ TABLET.ER (FP) PO ONE ×4 (15:30→18:40)
[2022-02-05] MEDS ORDERED: INSULIN REGULAR HUMAN 100 UNITS/ML *VIAL SQ ONE (15:34)
[2022-02-05] MEDS ORDERED: INSULIN (NOVOLOG) ASPART 100 UNITS/ML 10ML VIAL SQ ONE (15:36)
[2022-02-05 15:38] LABS: URINE APPEARANCE CLEAR; URINE BILIRUBIN NEGATIVE (NEGATIVE); URINE COLOR YELLOW; URINE GLUCOSE (UA) 3+ (NEGATIVE); URINE KETONE 1+ (NEGATIVE); URINE LEUK ESTERASE NEGATIVE (NEGATIVE); URINE NITRITE NEGATIVE (NEGATIVE); URINE PROTEIN NEGATIVE (NEGATIVE); URINE UROBILINOGEN 0.2 mg/dL (0.2-1.0)
[2022-02-05] MEDS ORDERED: MAGNESIUM SULF 50% (8.12 MEQ/2 ML-1 GM VIAL) ONE (16:04)
[2022-02-05] MEDS ORDERED: ACETAMINOPHEN INJECTION 100 ML IVPB ONE (16:05)
[2022-02-05 18:03] LABS: CALCIUM 8.8 mg/dL (8.5-10.1)
[2022-02-05 18:04] LABS: BLOOD UREA NITROGEN 15.2 mg/dL (7-18)
[2022-02-05 18:07] LABS: CREATININE 0.7 mg/dL (0.55-1.3)
== END 2022-02-05 18:50 | disposition home or self-care (01) ==
LOC: JER 12:47
PROC: 3E033NZ Introduction of Analgesics, Hypnotics, Sedatives into Peripheral Vein, Percutaneous Approach (ICD-10-PCS; principal; 2022-02-05)
PROC: 3E033GC Introduction of Other Therapeutic Substance into Peripheral Vein, Percutaneous Approach (ICD-10-PCS; 2022-02-05)
PROC: 3E033GC Introduction of Other Therapeutic Substance into Peripheral Vein, Percutaneous Approach (ICD-10-PCS; 2022-02-05)
PROC: 3E033GC Introduction of Other Therapeutic Substance into Peripheral Vein, Percutaneous Approach (ICD-10-PCS; 2022-02-05)
PROC: 3E033GC Introduction of Other Therapeutic Substance into Peripheral Vein, Percutaneous Approach (ICD-10-PCS; 2022-02-05)
PROC: 3E033GC Introduction of Other Therapeutic Substance into Peripheral Vein, Percutaneous Approach (ICD-10-PCS; 2022-02-05)
DX: E11.65 Type 2 diabetes mellitus with hyperglycemia (principal); E87.6 Hypokalemia
CPT/HCPCS: 36415; 80048; 80053; 81003; 82010; 82803; 82962; 83735; 85025; 87086; 93005; 93010; 96365; 96367; 96375; 96376; 99285-25

== ENCOUNTER 2023-03-20 21:56 | Inpatient (IN) | payer OTHER ==
[2023-03-20] MEDS ORDERED: SODIUM CHLORIDE 1,000 ML IV STA (22:24)
[2023-03-20 22:56] LABS: VENOUS BASE EXCESS -1.3 mmol/L (-2-2); VENOUS O2 SATURATION 94.2 % (70-80); VENOUS PCO2 33.8 mmHg (38-52); VENOUS PH 7.438 (7.310-7.410)
[2023-03-20 22:57] LABS: BASO % 0.2 % (0-2.0); HEMATOCRIT 32.4 % (35.4-49); HEMOGLOBIN 10.9 GM/dL (11.7-16.9); LYMPH % 6.6 % (8-40); MCH 29.7 pg (25.7-33.7); MCHC 33.5 g/dl (32.0-35.9); MEAN CELL VOLUME 88.7 fl (80-96); MEAN PLT VOLUME 9.5 fl (7.5-11.1); MONO % 8.9 % (3.8-10.2); NEUT % 84.3 % (42.8-82.8); PLATELET COUNT 138 10^3/uL (134-434); RBC 3.66 M/mm3 (4.00-5.60); RDW 13.1 % (11.9-15.9); WHITE BLOOD COUNT 19.6 K/mm3 (4.0-10.0)
[2023-03-20 23:04] LABS: INR 1.4 (0.83-1.09); PROTHROMBIN TIME (PATIENT) 16.2 SEC (9.7-13.0)
[2023-03-20 23:06] LABS: ACTIVATED PTT 32.4 SECONDS (25.2-36.5)
[2023-03-20 23:17] LABS: CHLORIDE 89 mmol/L (98-107); SODIUM 126 mmol/L (136-145)
[2023-03-20 23:20] LABS: CALCIUM 9.1 mg/dL (8.5-10.1)
[2023-03-20 23:21] LABS: ALBUMIN 2.7 g/dl (3.4-5.0); ANION GAP 14 MMOL/L (8-16); BLOOD UREA NITROGEN 41.1 mg/dL (7-18); CO2 23 mmol/L (21-32); MAGNESIUM 1.1 mg/dL (1.8-2.4)
[2023-03-20 23:24] LABS: CREATININE 2.2 mg/dL (0.55-1.3); SGOT/AST 47 U/L (15-37); SGPT/ALT 41 U/L (13-61)
[2023-03-20 23:25] LABS: TOT PROT 7.3 g/dl (6.4-8.2)
[2023-03-20 23:26] LABS: BILIRUBIN,TOTAL 1.1 mg/dL (0.2-1)
[2023-03-20 23:27] LABS: ALK PHOS 210 U/L (45-117)
[2023-03-20] MEDS ORDERED: INSULIN REGULAR HUMAN 100 UNITS/ML *VIAL SQ ONE (23:29)
[2023-03-20] MEDS ORDERED: SODIUM CHLORIDE 0.9%/KCL 20 MEQ/1,000 ML INFUS.BAG IV SCH (23:30)
[2023-03-20] MEDS ORDERED: SODIUM CHLORIDE 0.9% 500 ML INFUS.BAG IV ONE (23:30)
[2023-03-21] MEDS ORDERED: POTASSIUM CHLORIDE ORAL LIQUID 20 MEQ/15 ML PO ONE ×2 (00:09→01:58)
[2023-03-21] MEDS ORDERED: KCL 10 MEQ IVPB 10 MEQ/100 ML INFUS.BAG IVPB SCH (00:15)
[2023-03-21] MEDS ORDERED: MAGNESIUM SULFATE IN WATER 2 GM/50 ML IVPB IVPB ONE ×2 (00:16→02:36)
[2023-03-21 00:27] LABS: GLUCOSE,RANDOM 475 mg/dL (74-106)
[2023-03-21] MEDS ORDERED: POTASSIUM CHLORIDE ORAL LIQUID 20 MEQ/15 ML ONE ×2 (00:53→02:36)
[2023-03-21] MEDS ORDERED: AZITHROMYCIN IVPB 500 MG/250 ML BAG IVPB ONE ×2 (01:50→02:36)
[2023-03-21] MEDS ORDERED: CEFTRIAXONE 1,000 MG in DEXTROSE 5%-WATER - 50 ML IVPB ONE (01:50)
[2023-03-21] MEDS ORDERED: MAGNESIUM 2GM/50ML STERILE WATER IVPB IVPB ONE (01:59)
[2023-03-21] MEDS ORDERED: CEFTRIAXONE 1 GM/50 ML BAG ONE (02:36)
[2023-03-21] MEDS ORDERED: DOXYCYCLINE HYCLATE 100 MG VIAL ONE ×2 (02:44→10:26)
[2023-03-21] MEDS: DOXYCYCLINE INJECTION 100 MG in DEXTROSE 5%-WATER 100 ML IVPB SCH ×2 (03:01→10:51)
[2023-03-21] MEDS ORDERED: HEPARIN NA (PORCINE) 5,000 UNITS/ML 1ML VIAL ONE (06:14)
[2023-03-21 06:21] LABS: IRON SERUM 16 ug/dL (50-175)
[2023-03-21 06:25] LABS: CHOLESTEROL 114 mg/dL (50-200); HDL CHOLESTEROL 72 mg/dL (40-60); LDL CHOLESTEROL (ONLY SJRH) 27 mg/dL (5-100); TOTAL IRON BINDING CAPACITY 229 ug/dL (250-450)
[2023-03-21] MEDS: HEPARIN NA (PORCINE) 5,000 UNITS/ML 1ML VIAL SQ SCH ×3 (06:30→21:18)
[2023-03-21] MEDS ORDERED: INSULIN SLIDING SCALE (NOVOLOG) 1 VIAL SQ SCH (07:00)
[2023-03-21 07:10] LABS: HEMATOCRIT 30.1 % (35.4-49); HEMOGLOBIN 9.9 GM/dL (11.7-16.9); MCH 29.8 pg (25.7-33.7); MCHC 32.8 g/dl (32.0-35.9); MEAN CELL VOLUME 90.8 fl (80-96); MEAN PLT VOLUME 10.5 fl (7.5-11.1); PLATELET COUNT 130 10^3/uL (134-434); RBC 3.31 M/mm3 (4.00-5.60); RDW 12.8 % (11.9-15.9); WHITE BLOOD COUNT 18.4 K/mm3 (4.0-10.0)
[2023-03-21 07:20] LABS: CHLORIDE 100 mmol/L (98-107); POTASSIUM 4.2 mmol/L (3.5-5.1); SODIUM 133 mmol/L (136-145)
[2023-03-21 07:22] LABS: ANION GAP 11 MMOL/L (8-16); BLOOD UREA NITROGEN 42.7 mg/dL (7-18); CALCIUM 8.3 mg/dL (8.5-10.1); CO2 22 mmol/L (21-32); MAGNESIUM 2.2 mg/dL (1.8-2.4)
[2023-03-21 07:23] LABS: ALBUMIN 2.4 g/dl (3.4-5.0)
[2023-03-21 07:25] LABS: SGPT/ALT 54 U/L (13-61)
[2023-03-21 07:26] LABS: CREATININE 1.8 mg/dL (0.55-1.3); SGOT/AST 61 U/L (15-37)
[2023-03-21 07:27] LABS: BILIRUBIN,TOTAL 0.5 mg/dL (0.2-1); TOT PROT 6.2 g/dl (6.4-8.2)
[2023-03-21 07:28] LABS: ALK PHOS 205 U/L (45-117)
[2023-03-21 07:31] LABS: GLUCOSE,RANDOM 442 mg/dL (74-106)
[2023-03-21 07:46] LABS: RETICULOCYTES 1.56 % (0.5-1.5)
[2023-03-21] MEDS: SODIUM CHLORIDE 1,000 ML IV SCH ×2 (10:50→18:34)
[2023-03-21] MEDS: INSULIN SLIDING SCALE (NOVOLOG) 1 VIAL SQ SCH ×3 (12:07→21:19)
[2023-03-21 15:45] LABS: EPI CELLS 6 /uL (0-25.1); HYALINE CASTS 0 /uL (0-3.1); URINE APPEARANCE CLEAR; URINE BACTERIA 492 /uL (0-1359); URINE BILIRUBIN NEGATIVE (NEGATIVE); URINE COLOR YELLOW; URINE GLUCOSE (UA) 3+ (NEGATIVE); URINE KETONE NEGATIVE (NEGATIVE); URINE LEUK ESTERASE TRACE (NEGATIVE); URINE NITRITE NEGATIVE (NEGATIVE); URINE PROTEIN NEGATIVE (NEGATIVE); URINE UROBILINOGEN 0.2 mg/dL (0.2-1.0); URINE WBC 50 /uL (0-25.8)
[2023-03-21 15:52] LABS: URINE RBC 32 /uL (0-23.9)
[2023-03-21 15:58] LABS: URINE BARBITURATES NEGATIVE (NEGATIVE)
[2023-03-21 15:59] LABS: PHENCYCLIDINE,URINE NEGATIVE (NEGATIVE)
[2023-03-21 16:01] LABS: COCAINE, UR NEGATIVE (NEGATIVE); METHADONE, UR NEGATIVE (NEGATIVE); OPIATES, URI NEGATIVE (NEGATIVE); URINE AMPHETAMINES NEGATIVE (NEGATIVE); URINE BENZODIAZEPINES NEGATIVE (NEGATIVE)
[2023-03-21] MEDS: SODIUM CHLORIDE 0.9%/KCL 20 MEQ/1,000 ML INFUS.BAG IV SCH (21:14)
[2023-03-21] MEDS: ACETAMINOPHEN 325 MG TABLET (FP) PO PRN (21:40)
[2023-03-21] MEDS ORDERED: INSULIN (LEVEMIR) 100 UNITS/ML UNITS SQ SCH (22:00)
[2023-03-21 22:31] LABS: POTASSIUM 3.5 mmol/L (3.5-5.1)
[2023-03-21 22:33] LABS: CALCIUM 8.3 mg/dL (8.5-10.1)
[2023-03-21 22:34] LABS: BLOOD UREA NITROGEN 38.4 mg/dL (7-18); MAGNESIUM 1.8 mg/dL (1.8-2.4)
[2023-03-21 22:37] LABS: CREATININE 1.6 mg/dL (0.55-1.3); PHOSPHOROUS 1.7 mg/dL (2.5-4.9)
[2023-03-22] MEDS: SODIUM CHLORIDE 0.9%/KCL 20 MEQ/1,000 ML INFUS.BAG IV SCH ×2 (01:59→22:39)
[2023-03-22] MEDS: HEPARIN NA (PORCINE) 5,000 UNITS/ML 1ML VIAL SQ SCH ×3 (06:14→22:39)
[2023-03-22] MEDS: INSULIN SLIDING SCALE (NOVOLOG) 1 VIAL SQ SCH ×3 (06:15→17:16)
[2023-03-22 08:19] LABS: BASO % 0.8 % (0-2.0); EOS % 0.2 % (0-4.5); HEMATOCRIT 31.2 % (35.4-49); HEMOGLOBIN 10.2 GM/dL (11.7-16.9); LYMPH % 8.8 % (8-40); MCH 29.9 pg (25.7-33.7); MCHC 32.7 g/dl (32.0-35.9); MEAN CELL VOLUME 91.5 fl (80-96); MEAN PLT VOLUME 10.8 fl (7.5-11.1); MONO % 7.2 % (3.8-10.2); PLATELET COUNT 138 10^3/uL (134-434); RBC 3.41 M/mm3 (4.00-5.60); RDW 12.9 % (11.9-15.9); WHITE BLOOD COUNT 14.1 K/mm3 (4.0-10.0)
[2023-03-22 08:50] LABS: POTASSIUM 3.3 mmol/L (3.5-5.1)
[2023-03-22 08:57] LABS: BLOOD UREA NITROGEN 32.9 mg/dL (7-18); CALCIUM 8.3 mg/dL (8.5-10.1)
[2023-03-22 08:58] LABS: CREATININE 1.3 mg/dL (0.55-1.3); MAGNESIUM 1.6 mg/dL (1.8-2.4); PHOSPHOROUS 1.8 mg/dL (2.5-4.9)
[2023-03-22] MEDS ORDERED: POTASSIUM CHLORIDE TABS 20 MEQ TABLET.ER (FP) PO ONE (09:30)
[2023-03-22] MEDS ORDERED: MAGNESIUM 2GM/50ML STERILE WATER IVPB IVPB ONE (09:30)
[2023-03-22] MEDS: CEFTRIAXONE 1 GM in DEXTROSE 5%-WATER - 50 ML IVPB SCH (09:31)
[2023-03-22] MEDS ORDERED: NAPH,MB-DB/K PH,MBDB POWDER PACKET PO ONE (09:45)
[2023-03-22] MEDS ORDERED: AZITHROMYCIN IVPB 250 MG in DEXTROSE 5%-WATER - 250 ML IVPB SCH (10:00)
[2023-03-22] MEDS: SODIUM CHLORIDE 1,000 ML IV SCH (10:58)
[2023-03-22 14:11] VITALS: BMI 18.0
[2023-03-22] MEDS: INSULIN (LEVEMIR) 100 UNITS/ML UNITS SQ SCH (22:43)
[2023-03-22] MEDS: NYSTATIN 100,000 UNIT/GM TOPICAL CREAM 15 GM TUBE TP SCH (22:44)
[2023-03-22] MEDS: ACETAMINOPHEN 325 MG TABLET (FP) PO PRN (22:45)
[2023-03-22] MEDS: CLOTRIMAZOLE 1% CREAM TP SCH (23:03)
[2023-03-23] MEDS: INSULIN SLIDING SCALE (NOVOLOG) 1 VIAL SQ SCH ×3 (06:11→16:15)
[2023-03-23] MEDS: HEPARIN NA (PORCINE) 5,000 UNITS/ML 1ML VIAL SQ SCH ×3 (06:11→21:27)
[2023-03-23] MEDS ORDERED: INSULIN (LEVEMIR) 100 UNITS/ML UNITS SQ ONE (06:16)
[2023-03-23 07:23] LABS: POTASSIUM 3.4 mmol/L (3.5-5.1)
[2023-03-23 07:29] LABS: BLOOD UREA NITROGEN 21.3 mg/dL (7-18); CALCIUM 8.7 mg/dL (8.5-10.1)
[2023-03-23 07:30] LABS: MAGNESIUM 1.6 mg/dL (1.8-2.4)
[2023-03-23 07:32] LABS: BASO % 0.6 % (0-2.0); CREATININE 1.3 mg/dL (0.55-1.3); EOS % 0.3 % (0-4.5); HEMATOCRIT 28.5 % (35.4-49); HEMOGLOBIN 9.5 GM/dL (11.7-16.9); LYMPH % 14.8 % (8-40); MCH 29.6 pg (25.7-33.7); MCHC 33.3 g/dl (32.0-35.9); MONO % 10.2 % (3.8-10.2); NEUT % 74.1 % (42.8-82.8); PHOSPHOROUS 1.9 mg/dL (2.5-4.9); PLATELET COUNT 143 10^3/uL (134-434); RBC 3.21 M/mm3 (4.00-5.60)
[2023-03-23 07:33] LABS: BILIRUBIN,TOTAL 0.5 mg/dL (0.2-1); TOT PROT 5.4 g/dl (6.4-8.2)
[2023-03-23 07:46] LABS: ALBUMIN 1.8 g/dl (3.4-5.0)
[2023-03-23] MEDS: CEFTRIAXONE 1 GM in DEXTROSE 5%-WATER - 50 ML IVPB SCH (09:49)
[2023-03-23] MEDS: INSULIN (LEVEMIR) 100 UNITS/ML UNITS SQ SCH ×3 (09:50→21:27)
[2023-03-23] MEDS: NYSTATIN 100,000 UNIT/GM TOPICAL CREAM 15 GM TUBE TP SCH ×2 (10:21→21:26)
[2023-03-23] MEDS: CLOTRIMAZOLE 1% CREAM TP SCH ×2 (10:21→21:26)
[2023-03-23] MEDS: INSULIN (NOVOLOG) ASPART 100 UNITS/ML 10ML VIAL SQ SCH ×2 (10:57→16:15)
[2023-03-23] MEDS ORDERED: INSULIN (NOVOLOG) ASPART 100 UNITS/ML 10ML VIAL SQ SCH (11:00)
[2023-03-23] MEDS: SODIUM CHLORIDE 0.9%/KCL 20 MEQ/1,000 ML INFUS.BAG IV SCH ×2 (14:14→22:39)
[2023-03-23] MEDS: ACETAMINOPHEN 325 MG TABLET (FP) PO PRN (14:18)
[2023-03-24] MEDS: INSULIN SLIDING SCALE (NOVOLOG) 1 VIAL SQ SCH ×3 (06:11→16:22)
[2023-03-24] MEDS: INSULIN (NOVOLOG) ASPART 100 UNITS/ML 10ML VIAL SQ SCH ×3 (06:12→16:23)
[2023-03-24] MEDS: HEPARIN NA (PORCINE) 5,000 UNITS/ML 1ML VIAL SQ SCH ×2 (06:12→13:00)
[2023-03-24] MEDS: INSULIN (LEVEMIR) 100 UNITS/ML UNITS SQ SCH ×2 (06:12→22:12)
[2023-03-24 07:59] LABS: BASO % 0.9 % (0-2.0); EOS % 1.1 % (0-4.5); HEMATOCRIT 29.7 % (35.4-49); HEMOGLOBIN 9.9 GM/dL (11.7-16.9); LYMPH % 19.1 % (8-40); MCH 30.5 pg (25.7-33.7); MCHC 33.4 g/dl (32.0-35.9); MEAN CELL VOLUME 91.2 fl (80-96); MEAN PLT VOLUME 9.8 fl (7.5-11.1); MONO % 11.7 % (3.8-10.2); NEUT % 67.2 % (42.8-82.8); PLATELET COUNT 172 10^3/uL (134-434); RBC 3.26 M/mm3 (4.00-5.60); WHITE BLOOD COUNT 8.3 K/mm3 (4.0-10.0)
[2023-03-24 08:01] LABS: POTASSIUM 3.5 mmol/L (3.5-5.1)
[2023-03-24 08:03] LABS: CALCIUM 8.4 mg/dL (8.5-10.1)
[2023-03-24 08:04] LABS: ALBUMIN 1.8 g/dl (3.4-5.0)
[2023-03-24 08:06] LABS: PHOSPHOROUS 2.2 mg/dL (2.5-4.9)
[2023-03-24 08:07] LABS: CREATININE 1.1 mg/dL (0.55-1.3)
[2023-03-24 08:08] LABS: BILIRUBIN,TOTAL 0.2 mg/dL (0.2-1); TOT PROT 5.5 g/dl (6.4-8.2)
[2023-03-24] MEDS: NYSTATIN 100,000 UNIT/GM TOPICAL CREAM 15 GM TUBE TP SCH ×2 (10:10→22:12)
[2023-03-24] MEDS: CLOTRIMAZOLE 1% CREAM TP SCH ×2 (10:10→22:12)
[2023-03-24] MEDS ORDERED: POTASSIUM CHLORIDE TABS 20 MEQ TABLET.ER (FP) PO ONE (11:30)
[2023-03-24] MEDS ORDERED: NAPH,MB-DB/K PH,MBDB POWDER PACKET PO ONE (12:11)
[2023-03-24] MEDS: MAGNESIUM 2GM/50ML STERILE WATER IVPB IVPB SCH ×2 (12:30→16:12)
[2023-03-24] MEDS: SODIUM CHLORIDE 0.9%/KCL 20 MEQ/1,000 ML INFUS.BAG IV SCH (19:00)
[2023-03-25] MEDS: SODIUM CHLORIDE 0.9%/KCL 20 MEQ/1,000 ML INFUS.BAG IV SCH ×2 (02:26→16:14)
[2023-03-25] MEDS: INSULIN SLIDING SCALE (NOVOLOG) 1 VIAL SQ SCH ×3 (06:41→16:15)
[2023-03-25] MEDS: INSULIN (LEVEMIR) 100 UNITS/ML UNITS SQ SCH (06:42)
[2023-03-25] MEDS: INSULIN (NOVOLOG) ASPART 100 UNITS/ML 10ML VIAL SQ SCH ×3 (06:43→16:15)
[2023-03-25 07:13] LABS: HEMATOCRIT 28.8 % (35.4-49); HEMOGLOBIN 9.7 GM/dL (11.7-16.9); MCH 30.4 pg (25.7-33.7); MCHC 33.6 g/dl (32.0-35.9); MEAN CELL VOLUME 90.7 fl (80-96); MEAN PLT VOLUME 9.1 fl (7.5-11.1); PLATELET COUNT 191 10^3/uL (134-434); RBC 3.17 M/mm3 (4.00-5.60); WHITE BLOOD COUNT 7.3 K/mm3 (4.0-10.0)
[2023-03-25 07:18] LABS: INR 1.03 (0.83-1.09)
[2023-03-25 07:34] LABS: BLOOD UREA NITROGEN 12.6 mg/dL (7-18); CALCIUM 8.2 mg/dL (8.5-10.1); MAGNESIUM 1.5 mg/dL (1.8-2.4)
[2023-03-25 07:37] LABS: PHOSPHOROUS 2.8 mg/dL (2.5-4.9)
[2023-03-25 07:38] LABS: CREATININE 1.1 mg/dL (0.55-1.3)
[2023-03-25] MEDS ORDERED: INSULIN (LEVEMIR) 100 UNITS/ML UNITS SQ SCH (09:37)
[2023-03-25] MEDS ORDERED: MAGNESIUM SULF 50% (8.12 MEQ/2 ML-1 GM VIAL) IVPB ONE (09:38)
[2023-03-25] MEDS: NYSTATIN 100,000 UNIT/GM TOPICAL CREAM 15 GM TUBE TP SCH (10:05)
[2023-03-25] MEDS: CLOTRIMAZOLE 1% CREAM TP SCH (10:05)
[2023-03-25] MEDS ORDERED: INSULIN (NOVOLOG) ASPART 100 UNITS/ML 10ML VIAL ONE ×2 (10:44→16:17)
[2023-03-25 16:33] VITALS: BP 127/96; PULSE 100; RESP 18; TEMP 98.8
[2023-03-25 21:06] LABS: GLIADIN ANTIBODY IGA 3 units (0-19); GLIADIN ANTIBODY IGG 3 units (0-19); TRANSGLUTAMINASE IGG < 2 U/mL (0-5)
== END 2023-03-25 17:30 | disposition home or self-care (01) | DRG 420 ==
LOC: JER 21:56 → JERBED 23:31 → J2W 03-21 16:59
PROVIDERS: ADMIT Internal Medicine; ATTEND Internal Medicine
DX: E11.65 Type 2 diabetes mellitus with hyperglycemia (principal); J45.909 Unspecified asthma, uncomplicated; N17.9 Acute kidney failure, unspecified; E87.6 Hypokalemia; E83.42 Hypomagnesemia; N28.1 Cyst of kidney, acquired; D64.9 Anemia, unspecified; E87.1 Hypo-osmolality and hyponatremia; R19.7 Diarrhea, unspecified; R62.7 Adult failure to thrive; N13.30 Unspecified hydronephrosis; R33.8 Other retention of urine; Q60.0 Renal agenesis, unilateral; E83.39 Other disorders of phosphorus metabolism; R65.10 Systemic inflammatory response syndrome (SIRS) of non-infectious origin without acute organ dysfunction
CPT/HCPCS: 36415; 71045-TC-FY; 74176-TC; 76775-TC; 80048; 80053; 80061; 80307; 81003; 82010; 82550; 82656; 82728; 82803; 82962; 82977; 83036; 83516; 83540; 83550; 83735; 83993; 84100; 85025; 85027; 85045; 85610; 85730; 87040; 87045; 87046; 87086; 87493; 87798; 93005; 93010; 97116-GP; 97162-GP; 99291; J1644

== ENCOUNTER 2023-06-24 16:12 | Inpatient (IN) | payer OTHER ==
[2023-06-24] MEDS ORDERED: SODIUM CHLORIDE 0.9% 500 ML INFUS.BAG IV ONE (18:42)
[2023-06-24 18:56] LABS: HEMATOCRIT 32.6 % (35.4-49); HEMOGLOBIN 11.1 GM/dL (11.7-16.9); MCH 29.8 pg (25.7-33.7); MEAN CELL VOLUME 87.7 fl (80-96); MEAN PLT VOLUME 9.5 fl (7.5-11.1); PLATELET COUNT 138 10^3/uL (134-434); RBC 3.72 M/mm3 (4.00-5.60); RDW 13.3 % (11.9-15.9); WHITE BLOOD COUNT 20.2 K/mm3 (4.0-10.0)
[2023-06-24 19:12] LABS: CHLORIDE 77 mmol/L (98-107); POTASSIUM 4.1 mmol/L (3.5-5.1)
[2023-06-24 19:14] LABS: ALBUMIN 2.5 g/dl (3.4-5.0); BLOOD UREA NITROGEN 42.8 mg/dL (7-18); CALCIUM 8.3 mg/dL (8.5-10.1); CO2 22 mmol/L (21-32); MAGNESIUM 1.1 mg/dL (1.8-2.4)
[2023-06-24 19:17] LABS: PHOSPHOROUS 3.5 mg/dL (2.5-4.9); SGOT/AST 30 U/L (15-37); SGPT/ALT 28 U/L (13-61)
[2023-06-24 19:19] LABS: TOT PROT 7.1 g/dl (6.4-8.2)
[2023-06-24 19:20] LABS: ALK PHOS 204 U/L (45-117)
[2023-06-24 20:07] LABS: VENOUS O2 SATURATION 80.7 % (70-80); VENOUS PCO2 38.4 mmHg (38-52); VENOUS PH 7.354 (7.310-7.410)
[2023-06-24 20:08] LABS: ANION GAP 15 MMOL/L (8-16); ANISOCYTOSIS 0; GLUCOSE,RANDOM 779 mg/dL (74-106); MACROCYTOSIS 0; PLATELET ESTIMATE NORMAL; SODIUM 115 mmol/L (136-145)
[2023-06-24 20:09] LABS: EPI CELLS 5 /uL (0-25.1); HYALINE CASTS 0 /uL (0-3.1); URINE APPEARANCE TURBID; URINE BACTERIA >9,000 /uL (0-1359); URINE BILIRUBIN NEGATIVE (NEGATIVE); URINE COLOR YELLOW; URINE GLUCOSE (UA) 3+ (NEGATIVE); URINE KETONE NEGATIVE (NEGATIVE); URINE LEUK ESTERASE 2+ (NEGATIVE); URINE NITRITE NEGATIVE (NEGATIVE); URINE PROTEIN 1+ (NEGATIVE); URINE RBC 39 /uL (0-23.9); URINE UROBILINOGEN 0.2 mg/dL (0.2-1.0); URINE WBC 1510 /uL (0-25.8)
[2023-06-24] MEDS ORDERED: SODIUM CHLORIDE 1,000 ML IV STA ×2 (20:10→20:13)
[2023-06-24] MEDS ORDERED: CEFTRIAXONE 1,000 MG in DEXTROSE 5%-WATER - 50 ML IVPB ONE (20:13)
[2023-06-24] MEDS ORDERED: CEFTRIAXONE 1 GM/50 ML BAG ONE (20:18)
[2023-06-24] MEDS ORDERED: MAGNESIUM SULF 50% (8.12 MEQ/2 ML-1 GM VIAL) IVPB ONE (20:18)
[2023-06-24] MEDS ORDERED: MAGNESIUM 1GM/D5W - 1 GM/100 ML IVPB IVPB ONE (20:54)
[2023-06-24] MEDS ORDERED: SODIUM CHLORIDE 0.9%/KCL 20 MEQ/1,000 ML INFUS.BAG IV SCH (21:00)
[2023-06-24] MEDS ORDERED: POTASSIUM CHLORIDE 20 MEQ in SODIUM CHLORIDE 1,000 ML IVPB SCH (21:00)
[2023-06-24 22:18] LABS: YEAST NONE SEEN (NEGATIVE)
[2023-06-24] MEDS ORDERED: SODIUM CHLORIDE 1,000 ML IV SCH (23:15)
[2023-06-24 23:36] LABS: CHLORIDE 92 mmol/L (98-107); POTASSIUM 4.4 mmol/L (3.5-5.1); SODIUM 125 mmol/L (136-145)
[2023-06-24 23:38] LABS: ANION GAP 11 MMOL/L (8-16); BLOOD UREA NITROGEN 41.8 mg/dL (7-18); CO2 22 mmol/L (21-32)
[2023-06-24 23:41] LABS: CREATININE 2.5 mg/dL (0.55-1.3)
[2023-06-24 23:43] LABS: GLUCOSE,RANDOM 639 mg/dL (74-106)
[2023-06-24] MEDS ORDERED: INSULIN REGULAR HUMAN 100 UNITS/ML *VIAL SQ ONE (23:50)
[2023-06-25] MEDS ORDERED: ACETAMINOPHEN 1000 MG/100 ML BAG IVPB ONE (01:58)
[2023-06-25] MEDS ORDERED: SODIUM CHLORIDE 2,000 ML IV STA (02:36)
[2023-06-25] MEDS ORDERED: ACETAMINOPHEN INJECTION 100 ML IVPB ONE (02:40)
[2023-06-25] MEDS ORDERED: INSULIN (LEVEMIR) 100 UNITS/ML UNITS SQ ONE ×2 (04:45→23:57)
[2023-06-25] MEDS ORDERED: HEPARIN NA (PORCINE) 5,000 UNITS/ML 1ML VIAL ONE (05:37)
[2023-06-25] MEDS: HEPARIN NA (PORCINE) 5,000 UNITS/ML 1ML VIAL SQ SCH ×3 (05:44→21:21)
[2023-06-25 08:11] LABS: HEMATOCRIT 31.9 % (35.4-49); HEMOGLOBIN 10.6 GM/dL (11.7-16.9); MCH 29.3 pg (25.7-33.7); MCHC 33.2 g/dl (32.0-35.9); MEAN CELL VOLUME 88.4 fl (80-96); MEAN PLT VOLUME 9.5 fl (7.5-11.1); PLATELET COUNT 117 10^3/uL (134-434); RBC 3.61 M/mm3 (4.00-5.60); RDW 13.2 % (11.9-15.9); WHITE BLOOD COUNT 15.7 K/mm3 (4.0-10.0)
[2023-06-25 08:26] LABS: CHLORIDE 95 mmol/L (98-107); POTASSIUM 3.7 mmol/L (3.5-5.1); SODIUM 125 mmol/L (136-145)
[2023-06-25 08:38] LABS: SGOT/AST 24 U/L (15-37)
[2023-06-25 08:39] LABS: ANION GAP 11 MMOL/L (8-16); BILIRUBIN,TOTAL 0.4 mg/dL (0.2-1); CALCIUM 7.2 mg/dL (8.5-10.1); CO2 20 mmol/L (21-32); MAGNESIUM 1.4 mg/dL (1.8-2.4); TOT PROT 5.7 g/dl (6.4-8.2)
[2023-06-25 08:41] LABS: ALBUMIN 1.9 g/dl (3.4-5.0); ALK PHOS 162 U/L (45-117); CREATININE 2.7 mg/dL (0.55-1.3); GLUCOSE,RANDOM 479 mg/dL (74-106); PHOSPHOROUS 2.8 mg/dL (2.5-4.9); SGPT/ALT 23 U/L (13-61)
[2023-06-25] MEDS ORDERED: SODIUM CHLORIDE 1,000 ML IV STA (10:53)
[2023-06-25] MEDS: CEFTRIAXONE 1 GM in DEXTROSE 5%-WATER - 50 ML IVPB SCH (10:58)
[2023-06-25] MEDS ORDERED: CEFTRIAXONE 1 GM/50 ML BAG ONE (10:59)
[2023-06-25] MEDS ORDERED: INSULIN (NOVOLOG) ASPART 100 UNITS/ML 10ML VIAL ONE (10:59)
[2023-06-25] MEDS: INSULIN SLIDING SCALE (NOVOLOG) 1 VIAL SQ SCH ×3 (11:08→21:18)
[2023-06-25] MEDS ORDERED: SODIUM CHLORIDE 0.9% 1000 ML INFUS.BAG IVPB ONE (12:00)
[2023-06-25] MEDS ORDERED: SODIUM CHLORIDE 1,000 ML IV ONE (12:00)
[2023-06-25 13:16] LABS: POTASSIUM 3.6 mmol/L (3.5-5.1)
[2023-06-25 13:17] LABS: CALCIUM 7.4 mg/dL (8.5-10.1)
[2023-06-25 13:18] LABS: BLOOD UREA NITROGEN 48.3 mg/dL (7-18); MAGNESIUM 1.5 mg/dL (1.8-2.4)
[2023-06-25 13:21] LABS: CREATININE 2.9 mg/dL (0.55-1.3)
[2023-06-25] MEDS ORDERED: MAGNESIUM SULFATE IN WATER 2 GM/50 ML IVPB IVPB ONE (15:20)
[2023-06-25 19:46] LABS: POTASSIUM 3.8 mmol/L (3.5-5.1)
[2023-06-25 20:01] LABS: BLOOD UREA NITROGEN 52.9 mg/dL (7-18)
[2023-06-25] MEDS ORDERED: INSULIN (LEVEMIR) 100 UNITS/ML UNITS SQ SCH (22:00)
[2023-06-25] MEDS ORDERED: ACETAMINOPHEN 325 MG TABLET (FP) PO ONE (22:01)
[2023-06-26 04:20] LABS: EPI CELLS 0 /uL (0-25.1); HYALINE CASTS 0 /uL (0-3.1); URINE APPEARANCE CLOUDY; URINE BACTERIA 56 /uL (0-1359); URINE BILIRUBIN NEGATIVE (NEGATIVE); URINE COLOR YELLOW; URINE GLUCOSE (UA) 3+ (NEGATIVE); URINE KETONE NEGATIVE (NEGATIVE); URINE LEUK ESTERASE 2+ (NEGATIVE); URINE NITRITE NEGATIVE (NEGATIVE); URINE PROTEIN 1+ (NEGATIVE); URINE RBC 24 /uL (0-23.9); URINE UROBILINOGEN 0.2 mg/dL (0.2-1.0); URINE WBC 1055 /uL (0-25.8)
[2023-06-26] MEDS: INSULIN SLIDING SCALE (NOVOLOG) 1 VIAL SQ SCH ×4 (06:17→21:40)
[2023-06-26] MEDS: HEPARIN NA (PORCINE) 5,000 UNITS/ML 1ML VIAL SQ SCH ×3 (06:24→21:40)
[2023-06-26] MEDS ORDERED: INSULIN (LEVEMIR) 100 UNITS/ML UNITS SQ SCH (07:00)
[2023-06-26] MEDS: CEFTRIAXONE 1 GM in DEXTROSE 5%-WATER - 50 ML IVPB SCH (09:17)
[2023-06-26] MEDS ORDERED: INSULIN (NOVOLOG) ASPART 100 UNITS/ML 10ML VIAL ONE ×3 (11:55→21:39)
[2023-06-26] MEDS ORDERED: SODIUM CHLORIDE 1,000 ML IV STA (17:46)
[2023-06-26] MEDS ORDERED: DEXAMETHASONE SOD PHOSPHATE 10 MG/1 ML VIAL IVPUSH ONE (18:08)
[2023-06-26] MEDS ORDERED: ACETAMINOPHEN 1000 MG/100 ML BAG IVPB ONE (18:30)
[2023-06-26 18:43] LABS: POTASSIUM 3.3 mmol/L (3.5-5.1)
[2023-06-26 18:44] LABS: CALCIUM 8.3 mg/dL (8.5-10.1)
[2023-06-26 18:47] LABS: CREATININE 3.2 mg/dL (0.55-1.3)
[2023-06-26] MEDS: SODIUM CHLORIDE 0.9%/KCL 20 MEQ/1,000 ML INFUS.BAG IV SCH (18:48)
[2023-06-26 20:22] LABS: HIV INTERPRETATION NEGATIVE (NEGATIVE)
[2023-06-27] MEDS ORDERED: INSULIN (NOVOLOG) ASPART 100 UNITS/ML 10ML VIAL ONE (05:39)
[2023-06-27] MEDS: HEPARIN NA (PORCINE) 5,000 UNITS/ML 1ML VIAL SQ SCH ×3 (06:44→22:03)
[2023-06-27] MEDS: INSULIN (LEVEMIR) 100 UNITS/ML UNITS SQ SCH (06:44)
[2023-06-27] MEDS: INSULIN SLIDING SCALE (NOVOLOG) 1 VIAL SQ SCH ×4 (06:45→22:04)
[2023-06-27] MEDS: SODIUM CHLORIDE 0.9%/KCL 20 MEQ/1,000 ML INFUS.BAG IV SCH (06:45)
[2023-06-27 07:37] LABS: HEMATOCRIT 31.6 % (35.4-49); HEMOGLOBIN 10.5 GM/dL (11.7-16.9); MCH 30.1 pg (25.7-33.7); MCHC 33.2 g/dl (32.0-35.9); MEAN CELL VOLUME 90.7 fl (80-96); MEAN PLT VOLUME 10.9 fl (7.5-11.1); PLATELET COUNT 86 10^3/uL (134-434); RBC 3.49 M/mm3 (4.00-5.60); WHITE BLOOD COUNT 7.7 K/mm3 (4.0-10.0)
[2023-06-27 08:19] LABS: CHLORIDE 101 mmol/L (98-107); POTASSIUM 4.2 mmol/L (3.5-5.1); SODIUM 130 mmol/L (136-145)
[2023-06-27 08:27] LABS: GLUCOSE,RANDOM 664 mg/dL (74-106)
[2023-06-27 08:53] LABS: ANION GAP 12 MMOL/L (8-16); CO2 17 mmol/L (21-32)
[2023-06-27 09:03] LABS: BLOOD UREA NITROGEN 70.2 mg/dL (7-18)
[2023-06-27 09:05] LABS: CREATININE 3.1 mg/dL (0.55-1.3)
[2023-06-27 09:12] LABS: GLUCOSE,RANDOM 665 mg/dL (74-106)
[2023-06-27] MEDS ORDERED: INSULIN (NOVOLOG) ASPART 100 UNITS/ML 10ML VIAL SQ ONE (09:45)
[2023-06-27] MEDS: CEFTRIAXONE 1 GM in DEXTROSE 5%-WATER - 50 ML IVPB SCH (10:10)
[2023-06-28] MEDS ORDERED: ACETAMINOPHEN 1000 MG/100 ML BAG IVPB ONE (06:25)
[2023-06-28] MEDS: HEPARIN NA (PORCINE) 5,000 UNITS/ML 1ML VIAL SQ SCH ×3 (06:35→22:07)
[2023-06-28] MEDS: INSULIN (LEVEMIR) 100 UNITS/ML UNITS SQ SCH ×2 (06:35→22:07)
[2023-06-28] MEDS: INSULIN SLIDING SCALE (NOVOLOG) 1 VIAL SQ SCH ×4 (06:35→22:08)
[2023-06-28 08:36] LABS: CALCIUM 8.4 mg/dL (8.5-10.1); POTASSIUM 3.1 mmol/L (3.5-5.1)
[2023-06-28 08:38] LABS: BLOOD UREA NITROGEN 73.1 mg/dL (7-18); MAGNESIUM 1.7 mg/dL (1.8-2.4)
[2023-06-28 08:40] LABS: CREATININE 2.8 mg/dL (0.55-1.3)
[2023-06-28] MEDS: CEFTRIAXONE 1 GM in DEXTROSE 5%-WATER - 50 ML IVPB SCH (10:23)
[2023-06-28] MEDS ORDERED: POTASSIUM CHLORIDE ORAL LIQUID 20 MEQ/15 ML PO ONE (12:15)
[2023-06-28] MEDS: VANCOMYCIN ORAL SOLUTION 125 MG/2.5 ML PO SCH (17:36)
[2023-06-28] MEDS ORDERED: INSULIN (NOVOLOG) ASPART 100 UNITS/ML 10ML VIAL ONE (22:01)
[2023-06-29] MEDS: VANCOMYCIN ORAL SOLUTION 125 MG/2.5 ML PO SCH ×4 (00:21→18:47)
[2023-06-29] MEDS ORDERED: SODIUM CHLORIDE 0.9% 1000 ML INFUS.BAG IVPB ONE (01:45)
[2023-06-29] MEDS: HEPARIN NA (PORCINE) 5,000 UNITS/ML 1ML VIAL SQ SCH ×3 (05:28→21:46)
[2023-06-29] MEDS ORDERED: COSYNTROPIN 0.25 MG VIAL IVPUSH ONE (06:01)
[2023-06-29] MEDS: INSULIN SLIDING SCALE (NOVOLOG) 1 VIAL SQ SCH ×4 (06:09→21:46)
[2023-06-29] MEDS: INSULIN (LEVEMIR) 100 UNITS/ML UNITS SQ SCH ×2 (06:09→21:47)
[2023-06-29] MEDS ORDERED: CEFTRIAXONE 1 GM in DEXTROSE 5%-WATER - 50 ML IVPB SCH (10:00)
[2023-06-29 11:08] LABS: BASO % 0.3 % (0-2.0); EOS % 0.1 % (0-4.5); HEMOGLOBIN 9.1 GM/dL (11.7-16.9); LYMPH % 5.4 % (8-40); MCH 30.1 pg (25.7-33.7); MEAN CELL VOLUME 85.8 fl (80-96); MEAN PLT VOLUME 8.8 fl (7.5-11.1); MONO % 7.6 % (3.8-10.2); NEUT % 86.6 % (42.8-82.8); PLATELET COUNT 116 10^3/uL (134-434); RBC 3.03 M/mm3 (4.00-5.60); RDW 13.9 % (11.9-15.9); WHITE BLOOD COUNT 16.1 K/mm3 (4.0-10.0)
[2023-06-29 11:26] LABS: POTASSIUM 3.6 mmol/L (3.5-5.1)
[2023-06-29 11:27] LABS: CALCIUM 8.3 mg/dL (8.5-10.1)
[2023-06-29 11:29] LABS: BLOOD UREA NITROGEN 69.7 mg/dL (7-18)
[2023-06-29 11:31] LABS: CREATININE 2.3 mg/dL (0.55-1.3)
[2023-06-29] MEDS ORDERED: INSULIN (NOVOLOG) ASPART 100 UNITS/ML 10ML VIAL ONE (17:05)
[2023-06-30] MEDS: VANCOMYCIN ORAL SOLUTION 125 MG/2.5 ML PO SCH ×5 (00:22→23:24)
[2023-06-30] MEDS: HEPARIN NA (PORCINE) 5,000 UNITS/ML 1ML VIAL SQ SCH ×3 (05:02→22:54)
[2023-06-30] MEDS ORDERED: INSULIN (NOVOLOG) ASPART 100 UNITS/ML 10ML VIAL ONE ×3 (05:53→18:17)
[2023-06-30] MEDS: INSULIN (LEVEMIR) 100 UNITS/ML UNITS SQ SCH ×2 (06:03→22:55)
[2023-06-30] MEDS: INSULIN SLIDING SCALE (NOVOLOG) 1 VIAL SQ SCH ×4 (06:03→22:55)
[2023-06-30] MEDS ORDERED: INSULIN (LEVEMIR) 100 UNITS/ML UNITS SQ ONE (06:51)
[2023-06-30] MEDS ORDERED: ceFAZolin SODIUM 1 GM VIAL IVPB ONE ×2 (07:59→08:30)
[2023-06-30] MEDS ORDERED: PROMETHAZINE HCL 25 MG/1 ML VIAL IVPB PRN ×2 (08:17→09:22)
[2023-06-30] MEDS ORDERED: ONDANSETRON 4 MG/2 ML VIAL IVPUSH PRN ×2 (08:17→09:22)
[2023-06-30] MEDS ORDERED: PROPOFOL 20 ML ONE (08:20)
[2023-06-30] MEDS ORDERED: ceFAZolin SODIUM 1 GM VIAL ONE (08:21)
[2023-06-30] MEDS ORDERED: LIDOCAINE HCL/PF 2% SDV 5ML VIAL ONE (08:21)
[2023-06-30] MEDS ORDERED: FENTANYL CITRATE/PF 50 MCG/ML VIAL ONE (08:21)
[2023-06-30] MEDS ORDERED: SODIUM CHLORIDE 0.9% P/F 10 ML VIAL IJ ONE (08:21)
[2023-06-30] MEDS ORDERED: MIDAZOLAM HCL 2 MG/2 ML SINGLE DOSE VIAL ONE (08:21)
[2023-06-30] MEDS ORDERED: DEXAMETHASONE SOD PHOSPHATE 4 MG/1 ML VIAL ONE (08:35)
[2023-06-30] MEDS ORDERED: IOHEXOL 300 MG/ML INFUS..BTL IV ONE (08:35)
[2023-06-30] MEDS ORDERED: SODIUM CHLORIDE 1,000 ML IV SCH (09:00)
[2023-06-30] MEDS: SODIUM CHLORIDE 1,000 ML IV SCH (10:00)
[2023-06-30] MEDS: CEFTRIAXONE 1 GM in DEXTROSE 5%-WATER - 50 ML IVPB SCH (10:37)
[2023-06-30 11:56] LABS: HEMATOCRIT 28.2 % (35.4-49); HEMOGLOBIN 9.6 GM/dL (11.7-16.9); MCH 29.4 pg (25.7-33.7); MEAN CELL VOLUME 86.6 fl (80-96); MEAN PLT VOLUME 8.3 fl (7.5-11.1); PLATELET COUNT 174 10^3/uL (134-434); RBC 3.25 M/mm3 (4.00-5.60); RDW 13.8 % (11.9-15.9); WHITE BLOOD COUNT 17.9 K/mm3 (4.0-10.0)
[2023-06-30 12:16] VITALS: BMI 20.3
[2023-06-30 12:16] LABS: CALCIUM 8.3 mg/dL (8.5-10.1)
[2023-06-30 12:17] LABS: BLOOD UREA NITROGEN 59.5 mg/dL (7-18); POTASSIUM 3.3 mmol/L (3.5-5.1)
[2023-06-30 12:20] LABS: CREATININE 2.1 mg/dL (0.55-1.3)
[2023-06-30] MEDS ORDERED: POTASSIUM CHLORIDE ORAL LIQUID 20 MEQ/15 ML PO ONE (15:00)
[2023-07-01] MEDS: INSULIN SLIDING SCALE (NOVOLOG) 1 VIAL SQ SCH ×4 (04:35→23:46)
[2023-07-01] MEDS: HEPARIN NA (PORCINE) 5,000 UNITS/ML 1ML VIAL SQ SCH ×3 (06:52→23:46)
[2023-07-01] MEDS: VANCOMYCIN ORAL SOLUTION 125 MG/2.5 ML PO SCH ×3 (06:54→18:23)
[2023-07-01] MEDS: INSULIN (LEVEMIR) 100 UNITS/ML UNITS SQ SCH ×2 (06:56→23:52)
[2023-07-01] MEDS: SODIUM CHLORIDE 1,000 ML IV SCH ×2 (07:00→19:16)
[2023-07-01] MEDS ORDERED: INSULIN (LEVEMIR) 100 UNITS/ML UNITS SQ SCH (07:00)
[2023-07-01 07:55] LABS: HEMATOCRIT 25.3 % (35.4-49); HEMOGLOBIN 8.8 GM/dL (11.7-16.9); MCHC 34.7 g/dl (32.0-35.9); MEAN CELL VOLUME 86.6 fl (80-96); MEAN PLT VOLUME 8.6 fl (7.5-11.1); PLATELET COUNT 202 10^3/uL (134-434); RBC 2.93 M/mm3 (4.00-5.60); RDW 13.9 % (11.9-15.9); WHITE BLOOD COUNT 14.9 K/mm3 (4.0-10.0)
[2023-07-01 08:14] LABS: POTASSIUM 3.5 mmol/L (3.5-5.1)
[2023-07-01 08:18] LABS: BLOOD UREA NITROGEN 53.6 mg/dL (7-18); CALCIUM 7.8 mg/dL (8.5-10.1)
[2023-07-01 08:45] LABS: ANISOCYTOSIS 1+
[2023-07-01] MEDS: CEFTRIAXONE 1 GM in DEXTROSE 5%-WATER - 50 ML IVPB SCH (09:20)
[2023-07-01] MEDS ORDERED: INSULIN (NOVOLOG) ASPART 100 UNITS/ML 10ML VIAL ONE ×3 (11:14→21:33)
[2023-07-01 13:44] LABS: POTASSIUM 3.3 mmol/L (3.5-5.1)
[2023-07-01 13:46] LABS: BLOOD UREA NITROGEN 48.7 mg/dL (7-18)
[2023-07-01 13:50] LABS: CREATININE 1.9 mg/dL (0.55-1.3)
[2023-07-01] MEDS ORDERED: POTASSIUM CHLORIDE ORAL LIQUID 20 MEQ/15 ML PO ONE (14:19)
[2023-07-02] MEDS: VANCOMYCIN ORAL SOLUTION 125 MG/2.5 ML PO SCH ×4 (00:17→17:19)
[2023-07-02] MEDS: HEPARIN NA (PORCINE) 5,000 UNITS/ML 1ML VIAL SQ SCH ×3 (06:13→23:14)
[2023-07-02] MEDS: INSULIN SLIDING SCALE (NOVOLOG) 1 VIAL SQ SCH ×4 (06:19→23:14)
[2023-07-02] MEDS: INSULIN (LEVEMIR) 100 UNITS/ML UNITS SQ SCH ×3 (06:19→23:19)
[2023-07-02] MEDS: CEFTRIAXONE 1 GM in DEXTROSE 5%-WATER - 50 ML IVPB SCH (09:45)
[2023-07-02] MEDS: SODIUM CHLORIDE 1,000 ML IV SCH (09:46)
[2023-07-02] MEDS: TAMSULOSIN HCL 0.4 MG CAP PO SCH (11:33)
[2023-07-02] MEDS ORDERED: INSULIN (NOVOLOG) ASPART 100 UNITS/ML 10ML VIAL ONE ×2 (11:43→17:10)
[2023-07-02] MEDS ORDERED: INSULIN (LEVEMIR) 100 UNITS/ML UNITS SQ ONE ×2 (12:22→12:25)
[2023-07-02 14:18] LABS: POTASSIUM 4.1 mmol/L (3.5-5.1)
[2023-07-02 14:27] LABS: CALCIUM 7.7 mg/dL (8.5-10.1)
[2023-07-02 14:28] LABS: BLOOD UREA NITROGEN 39.9 mg/dL (7-18)
[2023-07-02 14:30] LABS: CREATININE 1.6 mg/dL (0.55-1.3)
[2023-07-02] MEDS ORDERED: LACTATED RINGERS SOLUTION 1,000 ML/1,000 ML INFUS.BAG IV STA (16:51)
[2023-07-03] MEDS: VANCOMYCIN ORAL SOLUTION 125 MG/2.5 ML PO SCH ×5 (00:26→23:01)
[2023-07-03] MEDS: HEPARIN NA (PORCINE) 5,000 UNITS/ML 1ML VIAL SQ SCH ×3 (06:55→22:29)
[2023-07-03] MEDS: INSULIN SLIDING SCALE (NOVOLOG) 1 VIAL SQ SCH ×4 (07:00→22:35)
[2023-07-03] MEDS: INSULIN (LEVEMIR) 100 UNITS/ML UNITS SQ SCH ×3 (07:00→22:27)
[2023-07-03] MEDS ORDERED: INSULIN (LEVEMIR) 100 UNITS/ML UNITS SQ ONE ×2 (07:58→12:22)
[2023-07-03] MEDS: TAMSULOSIN HCL 0.4 MG CAP PO SCH (08:18)
[2023-07-03] MEDS: CEFTRIAXONE 1 GM in DEXTROSE 5%-WATER - 50 ML IVPB SCH (09:52)
[2023-07-03] MEDS: SODIUM CHLORIDE 1,000 ML IV SCH (09:53)
[2023-07-03] MEDS ORDERED: INSULIN (NOVOLOG) ASPART 100 UNITS/ML 10ML VIAL ONE ×2 (12:22→17:25)
[2023-07-04] MEDS: INSULIN (LEVEMIR) 100 UNITS/ML UNITS SQ SCH ×2 (06:08→22:18)
[2023-07-04] MEDS: VANCOMYCIN ORAL SOLUTION 125 MG/2.5 ML PO SCH ×3 (06:08→17:54)
[2023-07-04] MEDS: INSULIN SLIDING SCALE (NOVOLOG) 1 VIAL SQ SCH ×4 (06:09→22:18)
[2023-07-04] MEDS: HEPARIN NA (PORCINE) 5,000 UNITS/ML 1ML VIAL SQ SCH ×2 (06:09→14:30)
[2023-07-04 06:49] LABS: HEMATOCRIT 22.9 % (35.4-49); HEMOGLOBIN 7.5 GM/dL (11.7-16.9); MCH 29.2 pg (25.7-33.7); MCHC 32.6 g/dl (32.0-35.9); MEAN CELL VOLUME 89.4 fl (80-96); MEAN PLT VOLUME 8.1 fl (7.5-11.1); PLATELET COUNT 264 10^3/uL (134-434); RBC 2.56 M/mm3 (4.00-5.60); RDW 13.9 % (11.9-15.9); WHITE BLOOD COUNT 19.7 K/mm3 (4.0-10.0)
[2023-07-04 07:05] LABS: POTASSIUM 3.9 mmol/L (3.5-5.1)
[2023-07-04 07:07] LABS: CALCIUM 7.4 mg/dL (8.5-10.1)
[2023-07-04 07:08] LABS: BLOOD UREA NITROGEN 30.6 mg/dL (7-18)
[2023-07-04 07:12] LABS: BILIRUBIN,TOTAL 0.2 mg/dL (0.2-1); TOT PROT 5.4 g/dl (6.4-8.2)
[2023-07-04 07:35] LABS: ALBUMIN 1.5 g/dl (3.4-5.0)
[2023-07-04] MEDS: TAMSULOSIN HCL 0.4 MG CAP PO SCH (08:01)
[2023-07-04 09:20] LABS: BILIRUBIN,DIRECT 0.1 mg/dL (0.0-0.2)
[2023-07-04 09:36] LABS: RETICULOCYTES 2.24 % (0.5-1.5)
[2023-07-04] MEDS: SODIUM CHLORIDE 1,000 ML IV SCH (10:30)
[2023-07-04] MEDS: CEFTRIAXONE 1 GM in DEXTROSE 5%-WATER - 50 ML IVPB SCH (10:31)
[2023-07-04] MEDS: AMOX TR/POT CLAV 875MG/125MG TABLETS (FP) PO SCH (17:15)
[2023-07-04] MEDS ORDERED: INSULIN (NOVOLOG) ASPART 100 UNITS/ML 10ML VIAL ONE (22:15)
[2023-07-05] MEDS: VANCOMYCIN ORAL SOLUTION 125 MG/2.5 ML PO SCH ×4 (00:15→17:57)
[2023-07-05] MEDS ORDERED: ACETAMINOPHEN 1000 MG/100 ML BAG IVPB ONE ×2 (03:54→14:45)
[2023-07-05 06:46] LABS: HEMATOCRIT 20.7 % (35.4-49); MCH 29.4 pg (25.7-33.7); MCHC 32.8 g/dl (32.0-35.9); MEAN CELL VOLUME 89.8 fl (80-96); MEAN PLT VOLUME 8.2 fl (7.5-11.1); PLATELET COUNT 259 10^3/uL (134-434); RDW 13.8 % (11.9-15.9); WHITE BLOOD COUNT 17.5 K/mm3 (4.0-10.0)
[2023-07-05] MEDS: INSULIN SLIDING SCALE (NOVOLOG) 1 VIAL SQ SCH ×4 (06:48→22:09)
[2023-07-05] MEDS: INSULIN (LEVEMIR) 100 UNITS/ML UNITS SQ SCH ×2 (06:48→22:09)
[2023-07-05 07:07] LABS: POTASSIUM 4.1 mmol/L (3.5-5.1)
[2023-07-05 07:09] LABS: CALCIUM 7.5 mg/dL (8.5-10.1)
[2023-07-05 07:10] LABS: ALBUMIN 1.5 g/dl (3.4-5.0); BLOOD UREA NITROGEN 33.6 mg/dL (7-18)
[2023-07-05 07:13] LABS: CREATININE 1.9 mg/dL (0.55-1.3)
[2023-07-05 07:14] LABS: BILIRUBIN,TOTAL 0.2 mg/dL (0.2-1); TOT PROT 5.5 g/dl (6.4-8.2)
[2023-07-05 07:16] LABS: HEMOGLOBIN 6.8 GM/dL (11.7-16.9)
[2023-07-05] MEDS: AMOX TR/POT CLAV 875MG/125MG TABLETS (FP) PO SCH ×2 (08:53→17:57)
[2023-07-05] MEDS: TAMSULOSIN HCL 0.4 MG CAP PO SCH (08:53)
[2023-07-05] MEDS ORDERED: INSULIN (NOVOLOG) ASPART 100 UNITS/ML 10ML VIAL ONE ×4 (11:48→22:08)
[2023-07-05] MEDS: SODIUM CHLORIDE 1,000 ML IV SCH (11:52)
[2023-07-05 22:02] LABS: HEMATOCRIT 25.8 % (35.4-49); HEMOGLOBIN 8.5 GM/dL (11.7-16.9); MCH 28.6 pg (25.7-33.7); MCHC 32.8 g/dl (32.0-35.9); MEAN CELL VOLUME 87.1 fl (80-96); MEAN PLT VOLUME 7.7 fl (7.5-11.1); PLATELET COUNT 280 10^3/uL (134-434); RBC 2.97 M/mm3 (4.00-5.60); RDW 14.7 % (11.9-15.9); WHITE BLOOD COUNT 22.3 K/mm3 (4.0-10.0)
[2023-07-06] MEDS: VANCOMYCIN ORAL SOLUTION 125 MG/2.5 ML PO SCH ×4 (00:48→17:23)
[2023-07-06] MEDS ORDERED: INSULIN (NOVOLOG) ASPART 100 UNITS/ML 10ML VIAL ONE (05:42)
[2023-07-06] MEDS: INSULIN (LEVEMIR) 100 UNITS/ML UNITS SQ SCH ×2 (06:38→22:20)
[2023-07-06] MEDS: INSULIN SLIDING SCALE (NOVOLOG) 1 VIAL SQ SCH ×4 (06:38→22:32)
[2023-07-06 07:00] LABS: HEMATOCRIT 25.6 % (35.4-49); HEMOGLOBIN 8.5 GM/dL (11.7-16.9); MCH 29.1 pg (25.7-33.7); MCHC 33.3 g/dl (32.0-35.9); MEAN CELL VOLUME 87.3 fl (80-96); MEAN PLT VOLUME 8.5 fl (7.5-11.1); PLATELET COUNT 276 10^3/uL (134-434); RBC 2.93 M/mm3 (4.00-5.60); RDW 15.1 % (11.9-15.9); WHITE BLOOD COUNT 20.1 K/mm3 (4.0-10.0)
[2023-07-06 07:17] LABS: POTASSIUM 3.9 mmol/L (3.5-5.1)
[2023-07-06 07:22] LABS: ALBUMIN 1.6 g/dl (3.4-5.0); CALCIUM 7.6 mg/dL (8.5-10.1)
[2023-07-06 07:23] LABS: BLOOD UREA NITROGEN 35.4 mg/dL (7-18)
[2023-07-06 07:25] LABS: CREATININE 1.8 mg/dL (0.55-1.3)
[2023-07-06 07:27] LABS: BILIRUBIN,TOTAL 0.4 mg/dL (0.2-1); TOT PROT 5.9 g/dl (6.4-8.2)
[2023-07-06] MEDS: AMOX TR/POT CLAV 875MG/125MG TABLETS (FP) PO SCH ×2 (08:58→17:23)
[2023-07-06] MEDS: TAMSULOSIN HCL 0.4 MG CAP PO SCH (08:58)
[2023-07-07] MEDS: VANCOMYCIN ORAL SOLUTION 125 MG/2.5 ML PO SCH ×5 (00:30→23:35)
[2023-07-07] MEDS ORDERED: INSULIN (NOVOLOG) ASPART 100 UNITS/ML 10ML VIAL ONE (06:16)
[2023-07-07] MEDS: INSULIN SLIDING SCALE (NOVOLOG) 1 VIAL SQ SCH ×4 (06:18→21:47)
[2023-07-07] MEDS: INSULIN (LEVEMIR) 100 UNITS/ML UNITS SQ SCH ×2 (06:18→21:46)
[2023-07-07 07:31] LABS: BASO % 0.8 % (0-2.0); EOS % 0.4 % (0-4.5); HEMATOCRIT 24.2 % (35.4-49); HEMOGLOBIN 8.1 GM/dL (11.7-16.9); LYMPH % 9.4 % (8-40); MCH 29.3 pg (25.7-33.7); MCHC 33.5 g/dl (32.0-35.9); MEAN CELL VOLUME 87.4 fl (80-96); MEAN PLT VOLUME 8.4 fl (7.5-11.1); MONO % 6.4 % (3.8-10.2); PLATELET COUNT 267 10^3/uL (134-434); RBC 2.77 M/mm3 (4.00-5.60); RDW 14.8 % (11.9-15.9); WHITE BLOOD COUNT 16.5 K/mm3 (4.0-10.0)
[2023-07-07 07:47] LABS: CHLORIDE 106 mmol/L (98-107); POTASSIUM 3.8 mmol/L (3.5-5.1); SODIUM 137 mmol/L (136-145)
[2023-07-07 07:53] LABS: ANION GAP 5 mmol/L (4-13); BLOOD UREA NITROGEN 40.9 mg/dL (7-18); CALCIUM 7.8 mg/dL (8.5-10.1); CO2 26 mmol/L (21-32); GLUCOSE,RANDOM 207 mg/dL (74-106)
[2023-07-07 07:54] LABS: ALBUMIN 1.5 g/dl (3.4-5.0)
[2023-07-07 07:56] LABS: SGPT/ALT 28 U/L (13-61)
[2023-07-07 07:57] LABS: CREATININE 1.9 mg/dL (0.55-1.3); PHOSPHOROUS 3.2 mg/dL (2.5-4.9); SGOT/AST 23 U/L (15-37)
[2023-07-07 07:58] LABS: BILIRUBIN,TOTAL 0.6 mg/dL (0.2-1); TOT PROT 6.1 g/dl (6.4-8.2)
[2023-07-07 07:59] LABS: ALK PHOS 375 U/L (45-117)
[2023-07-07 08:21] LABS: MAGNESIUM 0.8 mg/dL (1.8-2.4)
[2023-07-07] MEDS: TAMSULOSIN HCL 0.4 MG CAP PO SCH (08:41)
[2023-07-07] MEDS: AMOX TR/POT CLAV 875MG/125MG TABLETS (FP) PO SCH ×2 (08:41→16:50)
[2023-07-07] MEDS ORDERED: MAGNESIUM 2GM/50ML STERILE WATER IVPB IVPB ONE (09:00)
[2023-07-07] MEDS ORDERED: MAGNESIUM SULF 50% (8.12 MEQ/2 ML-1 GM VIAL) IVPB ONE (17:11)
[2023-07-08] MEDS: VANCOMYCIN ORAL SOLUTION 125 MG/2.5 ML PO SCH ×4 (05:43→23:42)
[2023-07-08] MEDS: INSULIN SLIDING SCALE (NOVOLOG) 1 VIAL SQ SCH ×5 (06:13→21:49)
[2023-07-08] MEDS: INSULIN (LEVEMIR) 100 UNITS/ML UNITS SQ SCH ×2 (06:17→21:47)
[2023-07-08 07:30] LABS: BASO % 1.1 % (0-2.0); EOS % 0.4 % (0-4.5); HEMOGLOBIN 7.9 GM/dL (11.7-16.9); LYMPH % 9.8 % (8-40); MCH 29.8 pg (25.7-33.7); MCHC 34.6 g/dl (32.0-35.9); MEAN CELL VOLUME 86.3 fl (80-96); MEAN PLT VOLUME 8.3 fl (7.5-11.1); MONO % 5.3 % (3.8-10.2); NEUT % 83.4 % (42.8-82.8); PLATELET COUNT 243 10^3/uL (134-434); RBC 2.66 M/mm3 (4.00-5.60); RDW 14.9 % (11.9-15.9); WHITE BLOOD COUNT 15.2 K/mm3 (4.0-10.0)
[2023-07-08 07:34] LABS: CALCIUM 7.9 mg/dL (8.5-10.1)
[2023-07-08 07:35] LABS: ALBUMIN 1.5 g/dl (3.4-5.0); BLOOD UREA NITROGEN 34.8 mg/dL (7-18)
[2023-07-08 07:38] LABS: CREATININE 1.8 mg/dL (0.55-1.3); PHOSPHOROUS 3.6 mg/dL (2.5-4.9)
[2023-07-08 07:39] LABS: BILIRUBIN,TOTAL 0.2 mg/dL (0.2-1)
[2023-07-08 07:48] LABS: MAGNESIUM 1.8 mg/dL (1.8-2.4)
[2023-07-08] MEDS: AMOX TR/POT CLAV 875MG/125MG TABLETS (FP) PO SCH ×2 (10:16→17:51)
[2023-07-08] MEDS: TAMSULOSIN HCL 0.4 MG CAP PO SCH (10:16)
[2023-07-09] MEDS ORDERED: INSULIN (NOVOLOG) ASPART 100 UNITS/ML 10ML VIAL ONE (05:47)
[2023-07-09] MEDS: VANCOMYCIN ORAL SOLUTION 125 MG/2.5 ML PO SCH ×4 (06:48→23:35)
[2023-07-09] MEDS: INSULIN SLIDING SCALE (NOVOLOG) 1 VIAL SQ SCH ×4 (06:49→21:58)
[2023-07-09] MEDS: INSULIN (LEVEMIR) 100 UNITS/ML UNITS SQ SCH (06:49)
[2023-07-09 08:17] LABS: HEMATOCRIT 23.8 % (35.4-49); HEMOGLOBIN 7.7 GM/dL (11.7-16.9); MCH 28.6 pg (25.7-33.7); MCHC 32.4 g/dl (32.0-35.9); MEAN PLT VOLUME 8.9 fl (7.5-11.1); PLATELET COUNT 254 10^3/uL (134-434); RDW 14.6 % (11.9-15.9)
[2023-07-09 08:42] LABS: CALCIUM 8.4 mg/dL (8.5-10.1)
[2023-07-09 08:43] LABS: BLOOD UREA NITROGEN 45.8 mg/dL (7-18)
[2023-07-09 08:45] LABS: CREATININE 2.2 mg/dL (0.55-1.3)
[2023-07-09] MEDS: AMOX TR/POT CLAV 875MG/125MG TABLETS (FP) PO SCH ×2 (10:28→17:29)
[2023-07-09] MEDS: TAMSULOSIN HCL 0.4 MG CAP PO SCH (10:28)
[2023-07-09] MEDS: LACTOBACILLUS ACIDOPHILUS 1 TABLET PO SCH ×2 (14:00→15:46)
[2023-07-09] MEDS: BANATROL PLUS POWDER PACKET PO SCH ×2 (14:01→22:00)
[2023-07-09] MEDS ORDERED: INSULIN (LEVEMIR) 100 UNITS/ML UNITS SQ SCH (17:20)
[2023-07-10] MEDS: BANATROL PLUS POWDER PACKET PO SCH ×3 (06:28→21:52)
[2023-07-10] MEDS: INSULIN (LEVEMIR) 100 UNITS/ML UNITS SQ SCH ×2 (06:28→21:51)
[2023-07-10] MEDS: INSULIN SLIDING SCALE (NOVOLOG) 1 VIAL SQ SCH ×4 (06:29→21:51)
[2023-07-10] MEDS: VANCOMYCIN ORAL SOLUTION 125 MG/2.5 ML PO SCH ×4 (06:30→23:27)
[2023-07-10 07:34] LABS: BASO % 1.4 % (0-2.0); EOS % 0.7 % (0-4.5); HEMATOCRIT 23.3 % (35.4-49); HEMOGLOBIN 7.5 GM/dL (11.7-16.9); LYMPH % 9.4 % (8-40); MCH 28.6 pg (25.7-33.7); MCHC 32.3 g/dl (32.0-35.9); MEAN CELL VOLUME 88.6 fl (80-96); MEAN PLT VOLUME 8.7 fl (7.5-11.1); MONO % 7.9 % (3.8-10.2); NEUT % 80.6 % (42.8-82.8); PLATELET COUNT 243 10^3/uL (134-434); RBC 2.63 M/mm3 (4.00-5.60); RDW 14.5 % (11.9-15.9); WHITE BLOOD COUNT 14.7 K/mm3 (4.0-10.0)
[2023-07-10 07:52] LABS: POTASSIUM 4.5 mmol/L (3.5-5.1)
[2023-07-10 07:56] LABS: CALCIUM 8.6 mg/dL (8.5-10.1)
[2023-07-10 07:57] LABS: BLOOD UREA NITROGEN 53.6 mg/dL (7-18); MAGNESIUM 1.5 mg/dL (1.8-2.4)
[2023-07-10] MEDS: TAMSULOSIN HCL 0.4 MG CAP PO SCH (07:59)
[2023-07-10] MEDS: AMOX TR/POT CLAV 875MG/125MG TABLETS (FP) PO SCH ×2 (07:59→17:12)
[2023-07-10 08:00] LABS: CREATININE 2.3 mg/dL (0.55-1.3); PHOSPHOROUS 4.3 mg/dL (2.5-4.9)
[2023-07-10] MEDS: LACTOBACILLUS ACIDOPHILUS 1 TABLET PO SCH (10:00)
[2023-07-10] MEDS ORDERED: LIDOCAINE HCL/PF 2% SDV 5ML VIAL ONE (12:04)
[2023-07-10] MEDS ORDERED: PROPOFOL 40 ML ONE (12:05)
[2023-07-10] MEDS ORDERED: MIDAZOLAM HCL 2 MG/2 ML SINGLE DOSE VIAL ONE (12:28)
[2023-07-10] MEDS ORDERED: FENTANYL CITRATE/PF 50 MCG/ML VIAL ONE ×2 (12:28→13:17)
[2023-07-10] MEDS ORDERED: IOHEXOL 300 MG/ML INFUS..BTL IV ONE (12:57)
[2023-07-10] MEDS ORDERED: ONDANSETRON 4 MG/2 ML VIAL ONE (13:22)
[2023-07-10] MEDS: LACTATED RINGERS SOLUTION 1,000 ML IV SCH (13:35)
[2023-07-10] MEDS ORDERED: ONDANSETRON 4 MG/2 ML VIAL IVPUSH PRN (13:36)
[2023-07-10] MEDS ORDERED: INSULIN (NOVOLOG) ASPART 100 UNITS/ML 10ML VIAL ONE ×2 (17:04→20:58)
[2023-07-10] MEDS ORDERED: INSULIN (LEVEMIR) 100 UNITS/ML UNITS SQ ONE (20:58)
[2023-07-10] MEDS ORDERED: ACETAMINOPHEN 1000 MG/100 ML BAG IVPB ONE (22:31)
[2023-07-11] MEDS: INSULIN (LEVEMIR) 100 UNITS/ML UNITS SQ SCH ×2 (06:38→22:10)
[2023-07-11] MEDS: BANATROL PLUS POWDER PACKET PO SCH ×3 (06:38→22:09)
[2023-07-11] MEDS: VANCOMYCIN ORAL SOLUTION 125 MG/2.5 ML PO SCH ×3 (06:38→18:37)
[2023-07-11] MEDS: INSULIN SLIDING SCALE (NOVOLOG) 1 VIAL SQ SCH ×4 (06:39→22:10)
[2023-07-11] MEDS: TAMSULOSIN HCL 0.4 MG CAP PO SCH (08:04)
[2023-07-11 08:31] LABS: HEMATOCRIT 22.9 % (35.4-49); HEMOGLOBIN 7.6 GM/dL (11.7-16.9); MCH 28.8 pg (25.7-33.7); MCHC 33.3 g/dl (32.0-35.9); MEAN CELL VOLUME 86.6 fl (80-96); MEAN PLT VOLUME 8.2 fl (7.5-11.1); PLATELET COUNT 229 10^3/uL (134-434); RBC 2.65 M/mm3 (4.00-5.60); RDW 14.1 % (11.9-15.9); WHITE BLOOD COUNT 16.9 K/mm3 (4.0-10.0)
[2023-07-11] MEDS ORDERED: PIPERACILLIN/TAZOB 4.5 GM 4.5 GM in DEXTROSE 5%-WATER 100 ML IVPB SCH ×2 (09:00→18:00)
[2023-07-11] MEDS: AMOX TR/POT CLAV 875MG/125MG TABLETS (FP) PO SCH (09:02)
[2023-07-11] MEDS: LACTOBACILLUS ACIDOPHILUS 1 TABLET PO SCH (10:29)
[2023-07-11 12:43] LABS: POTASSIUM 5.2 mmol/L (3.5-5.1)
[2023-07-11 12:45] LABS: BLOOD UREA NITROGEN 65.3 mg/dL (7-18); CALCIUM 8.5 mg/dL (8.5-10.1)
[2023-07-11 12:46] LABS: ALBUMIN 1.6 g/dl (3.4-5.0)
[2023-07-11 12:50] LABS: BILIRUBIN,TOTAL 0.6 mg/dL (0.2-1); TOT PROT 6.5 g/dl (6.4-8.2)
[2023-07-11] MEDS: CEFTRIAXONE 1 GM in DEXTROSE 5%-WATER - 50 ML IVPB SCH (13:04)
[2023-07-11] MEDS: LACTATED RINGERS SOLUTION 1,000 ML IV SCH (14:07)
[2023-07-11 15:59] LABS: INR 1.43 (0.83-1.09); PROTHROMBIN TIME (PATIENT) 16.5 SEC (9.7-13.0)
[2023-07-11] MEDS: SODIUM CHLORIDE 1,000 ML IV SCH (16:49)
[2023-07-11] MEDS ORDERED: ACETAMINOPHEN 1000 MG/100 ML BAG IVPB ONE (17:00)
[2023-07-11] MEDS ORDERED: PIPERACILLIN/TAZOB 2.25 GM 2.25 GM in DEXTROSE 5%-WATER - 50 ML IVPB SCH (18:00)
[2023-07-12] MEDS ORDERED: ACETAMINOPHEN 1000 MG/100 ML BAG IVPB ONE (04:12)
[2023-07-12] MEDS: BANATROL PLUS POWDER PACKET PO SCH ×3 (06:09→21:24)
[2023-07-12] MEDS: VANCOMYCIN ORAL SOLUTION 125 MG/2.5 ML PO SCH ×4 (06:11→17:06)
[2023-07-12] MEDS: INSULIN SLIDING SCALE (NOVOLOG) 1 VIAL SQ SCH ×4 (06:12→21:25)
[2023-07-12] MEDS: INSULIN (LEVEMIR) 100 UNITS/ML UNITS SQ SCH ×2 (06:12→21:24)
[2023-07-12] MEDS: SODIUM CHLORIDE 1,000 ML IV SCH (06:15)
[2023-07-12 08:10] LABS: POTASSIUM 5.1 mmol/L (3.5-5.1)
[2023-07-12 08:13] LABS: ALBUMIN 1.3 g/dl (3.4-5.0); CALCIUM 7.7 mg/dL (8.5-10.1)
[2023-07-12 08:14] LABS: BLOOD UREA NITROGEN 79.1 mg/dL (7-18)
[2023-07-12 08:16] LABS: CREATININE 5.7 mg/dL (0.55-1.3)
[2023-07-12 08:18] LABS: BILIRUBIN,TOTAL 0.4 mg/dL (0.2-1)
[2023-07-12 08:20] LABS: TOT PROT 5.8 g/dl (6.4-8.2)
[2023-07-12] MEDS: CEFTRIAXONE 1 GM in DEXTROSE 5%-WATER - 50 ML IVPB SCH (10:13)
[2023-07-12] MEDS: TAMSULOSIN HCL 0.4 MG CAP PO SCH (10:13)
[2023-07-12] MEDS: LACTOBACILLUS ACIDOPHILUS 1 TABLET PO SCH (10:13)
[2023-07-12] MEDS ORDERED: SODIUM CHLORIDE 500 ML IV SCH (11:20)
[2023-07-12] MEDS ORDERED: FENTANYL CITRATE/PF 50 MCG/ML VIAL ONE (11:29)
[2023-07-12] MEDS ORDERED: MIDAZOLAM HCL 2 MG/2 ML SINGLE DOSE VIAL ONE (11:29)
[2023-07-12] MEDS ORDERED: MIDAZOLAM HCL 2 MG/2 ML SINGLE DOSE VIAL IVPUSH ONE (11:32)
[2023-07-12] MEDS ORDERED: FENTANYL CITRATE/PF 50 MCG/ML VIAL IVPUSH ONE (11:32)
[2023-07-12] MEDS ORDERED: INSULIN (NOVOLOG) ASPART 100 UNITS/ML 10ML VIAL ONE ×2 (12:25→21:11)
[2023-07-13] MEDS: VANCOMYCIN ORAL SOLUTION 125 MG/2.5 ML PO SCH ×4 (00:10→17:07)
[2023-07-13] MEDS: BANATROL PLUS POWDER PACKET PO SCH ×3 (05:59→21:41)
[2023-07-13] MEDS: INSULIN SLIDING SCALE (NOVOLOG) 1 VIAL SQ SCH ×3 (06:00→17:13)
[2023-07-13] MEDS: INSULIN (LEVEMIR) 100 UNITS/ML UNITS SQ SCH (07:14)
[2023-07-13 07:29] LABS: HEMATOCRIT 20.6 % (35.4-49); MCH 28.6 pg (25.7-33.7); MCHC 32.9 g/dl (32.0-35.9); MEAN CELL VOLUME 87.1 fl (80-96); MEAN PLT VOLUME 8.5 fl (7.5-11.1); PLATELET COUNT 239 10^3/uL (134-434); RBC 2.37 M/mm3 (4.00-5.60); RDW 14.1 % (11.9-15.9); WHITE BLOOD COUNT 13.5 K/mm3 (4.0-10.0)
[2023-07-13 07:41] LABS: HEMOGLOBIN 6.8 GM/dL (11.7-16.9)
[2023-07-13] MEDS: TAMSULOSIN HCL 0.4 MG CAP PO SCH (07:55)
[2023-07-13 07:59] LABS: CHLORIDE 99 mmol/L (98-107); SODIUM 130 mmol/L (136-145)
[2023-07-13 08:02] LABS: ALBUMIN 1.3 g/dl (3.4-5.0); ANION GAP 12 mmol/L (4-13); CALCIUM 8.2 mg/dL (8.5-10.1); CO2 19 mmol/L (21-32)
[2023-07-13 08:03] LABS: BLOOD UREA NITROGEN 93.7 mg/dL (7-18); GLUCOSE,RANDOM 102 mg/dL (74-106)
[2023-07-13 08:05] LABS: CREATININE 6.4 mg/dL (0.55-1.3); SGPT/ALT 24 U/L (13-61)
[2023-07-13 08:06] LABS: SGOT/AST 12 U/L (15-37)
[2023-07-13 08:07] LABS: BILIRUBIN,TOTAL 0.5 mg/dL (0.2-1); TOT PROT 6.1 g/dl (6.4-8.2)
[2023-07-13 08:12] LABS: ALK PHOS 302 U/L (45-117)
[2023-07-13 09:01] LABS: MAGNESIUM 1.8 mg/dL (1.8-2.4)
[2023-07-13 09:23] LABS: PHOSPHOROUS 9.3 mg/dL (2.5-4.9)
[2023-07-13] MEDS: LACTOBACILLUS ACIDOPHILUS 1 TABLET PO SCH (09:52)
[2023-07-13] MEDS: CEFTRIAXONE 1 GM in DEXTROSE 5%-WATER - 50 ML IVPB SCH (09:54)
[2023-07-13] MEDS ORDERED: ACETAMINOPHEN 500 MG TABLET (FP) PO ONE (13:15)
[2023-07-13] MEDS ORDERED: ACETAMINOPHEN 1000 MG/100 ML BAG IVPB ONE (13:16)
[2023-07-13] MEDS ORDERED: INSULIN (NOVOLOG) ASPART 100 UNITS/ML 10ML VIAL ONE (17:14)
[2023-07-13 21:10] LABS: HEMATOCRIT 26.3 % (35.4-49); MCH 28.9 pg (25.7-33.7); MCHC 34.1 g/dl (32.0-35.9); MEAN CELL VOLUME 84.9 fl (80-96); MEAN PLT VOLUME 8.2 fl (7.5-11.1); PLATELET COUNT 243 10^3/uL (134-434); WHITE BLOOD COUNT 13.1 K/mm3 (4.0-10.0)
[2023-07-14] MEDS: VANCOMYCIN ORAL SOLUTION 125 MG/2.5 ML PO SCH ×5 (00:19→23:53)
[2023-07-14] MEDS: BANATROL PLUS POWDER PACKET PO SCH ×4 (06:29→21:52)
[2023-07-14] MEDS: INSULIN (LEVEMIR) 100 UNITS/ML UNITS SQ SCH (06:50)
[2023-07-14] MEDS: INSULIN SLIDING SCALE (NOVOLOG) 1 VIAL SQ SCH ×3 (06:50→18:00)
[2023-07-14] MEDS: TAMSULOSIN HCL 0.4 MG CAP PO SCH (07:41)
[2023-07-14 08:11] LABS: BASO % 0.7 % (0-2.0); HEMATOCRIT 26.3 % (35.4-49); LYMPH % 7.6 % (8-40); MCHC 34.2 g/dl (32.0-35.9); MEAN CELL VOLUME 84.9 fl (80-96); MEAN PLT VOLUME 8.7 fl (7.5-11.1); NEUT % 81.7 % (42.8-82.8); PLATELET COUNT 240 10^3/uL (134-434); RDW 14.4 % (11.9-15.9); WHITE BLOOD COUNT 13.8 K/mm3 (4.0-10.0)
[2023-07-14 08:33] LABS: CHLORIDE 98 mmol/L (98-107); POTASSIUM 5.1 mmol/L (3.5-5.1); SODIUM 129 mmol/L (136-145)
[2023-07-14 08:36] LABS: ALBUMIN 1.4 g/dl (3.4-5.0); ANION GAP 12 mmol/L (4-13); BLOOD UREA NITROGEN 101.6 mg/dL (7-18); CALCIUM 7.9 mg/dL (8.5-10.1); CO2 19 mmol/L (21-32); GLUCOSE,RANDOM 140 mg/dL (74-106)
[2023-07-14 08:39] LABS: SGOT/AST 10 U/L (15-37); SGPT/ALT 20 U/L (13-61)
[2023-07-14 08:41] LABS: BILIRUBIN,TOTAL 0.3 mg/dL (0.2-1); TOT PROT 6.4 g/dl (6.4-8.2)
[2023-07-14 08:42] LABS: ALK PHOS 313 U/L (45-117)
[2023-07-14] MEDS: CEFTRIAXONE 1 GM in DEXTROSE 5%-WATER - 50 ML IVPB SCH (09:54)
[2023-07-14] MEDS: LACTOBACILLUS ACIDOPHILUS 1 TABLET PO SCH (09:54)
[2023-07-14] MEDS ORDERED: SODIUM CHLORIDE 1,000 ML IV SCH (10:00)
[2023-07-14] MEDS ORDERED: CASPOFUNGIN ACETATE 70 MG in SODIUM CHLORIDE 250 ML IVPB ONE (11:00)
[2023-07-14 16:02] LABS: CHLORIDE 98 mmol/L (98-107); SODIUM 129 mmol/L (136-145)
[2023-07-14 16:04] LABS: ALBUMIN 1.4 g/dl (3.4-5.0); ANION GAP 13 mmol/L (4-13); CALCIUM 8.2 mg/dL (8.5-10.1); CO2 17 mmol/L (21-32); GLUCOSE,RANDOM 74 mg/dL (74-106)
[2023-07-14 16:05] LABS: BLOOD UREA NITROGEN 103.2 mg/dL (7-18)
[2023-07-14 16:07] LABS: SGPT/ALT 19 U/L (13-61)
[2023-07-14 16:08] LABS: SGOT/AST 15 U/L (15-37)
[2023-07-14 16:09] LABS: BILIRUBIN,TOTAL 0.2 mg/dL (0.2-1); TOT PROT 6.3 g/dl (6.4-8.2)
[2023-07-14 16:10] LABS: ALK PHOS 312 U/L (45-117)
[2023-07-14 16:43] LABS: CREATININE 8.3 mg/dL (0.55-1.3); PHOSPHOROUS 8.8 mg/dL (2.5-4.9)
[2023-07-14] MEDS: SEVELAMER CARBONATE 800 MG TAB (FP) PO SCH (18:03)
[2023-07-14] MEDS: SODIUM CHLORIDE 1,000 ML IV SCH ×2 (18:05→21:51)
[2023-07-14] MEDS: ACETAMINOPHEN 500 MG TABLET (FP) PO PRN (21:47)
[2023-07-15] MEDS: VANCOMYCIN ORAL SOLUTION 125 MG/2.5 ML PO SCH ×3 (06:18→18:36)
[2023-07-15] MEDS: BANATROL PLUS POWDER PACKET PO SCH ×3 (06:25→22:09)
[2023-07-15] MEDS: INSULIN SLIDING SCALE (NOVOLOG) 1 VIAL SQ SCH ×3 (06:52→18:33)
[2023-07-15] MEDS: INSULIN (LEVEMIR) 100 UNITS/ML UNITS SQ SCH (06:56)
[2023-07-15 07:24] LABS: BASO % 0.7 % (0-2.0); EOS % 2.2 % (0-4.5); HEMATOCRIT 25.5 % (35.4-49); HEMOGLOBIN 8.2 GM/dL (11.7-16.9); LYMPH % 7.7 % (8-40); MCH 28.2 pg (25.7-33.7); MCHC 32.1 g/dl (32.0-35.9); MEAN CELL VOLUME 87.8 fl (80-96); MEAN PLT VOLUME 8.6 fl (7.5-11.1); MONO % 7.9 % (3.8-10.2); NEUT % 81.5 % (42.8-82.8); PLATELET COUNT 263 10^3/uL (134-434); RBC 2.91 M/mm3 (4.00-5.60); RDW 14.5 % (11.9-15.9); WHITE BLOOD COUNT 13.7 K/mm3 (4.0-10.0)
[2023-07-15 07:48] LABS: CHLORIDE 100 mmol/L (98-107); POTASSIUM 5.1 mmol/L (3.5-5.1); SODIUM 128 mmol/L (136-145)
[2023-07-15 07:53] LABS: ALBUMIN 1.3 g/dl (3.4-5.0); ANION GAP 15 mmol/L (4-13); CALCIUM 8.1 mg/dL (8.5-10.1); CO2 14 mmol/L (21-32); GLUCOSE,RANDOM 190 mg/dL (74-106); MAGNESIUM 1.9 mg/dL (1.8-2.4)
[2023-07-15 07:55] LABS: SGPT/ALT 18 U/L (13-61)
[2023-07-15 07:56] LABS: SGOT/AST 11 U/L (15-37)
[2023-07-15 07:57] LABS: BILIRUBIN,TOTAL 0.3 mg/dL (0.2-1); TOT PROT 5.9 g/dl (6.4-8.2)
[2023-07-15 08:39] LABS: ALK PHOS 267 U/L (45-117); BLOOD UREA NITROGEN 107.1 mg/dL (7-18); CREATININE 8.7 mg/dL (0.55-1.3); PHOSPHOROUS 8.7 mg/dL (2.5-4.9)
[2023-07-15] MEDS ORDERED: SODIUM BICARBONATE 8.4% 50 MEQ/50 ML DISP.SYRIN IVPUSH ONE (08:42)
[2023-07-15] MEDS: CEFTRIAXONE 1 GM in DEXTROSE 5%-WATER - 50 ML IVPB SCH (10:40)
[2023-07-15] MEDS: LACTOBACILLUS ACIDOPHILUS 1 TABLET PO SCH (10:40)
[2023-07-15] MEDS: SEVELAMER CARBONATE 800 MG TAB (FP) PO SCH ×3 (10:40→18:34)
[2023-07-15] MEDS: TAMSULOSIN HCL 0.4 MG CAP PO SCH (10:40)
[2023-07-15] MEDS: SODIUM CHLORIDE 1,000 ML IV SCH ×2 (13:04→23:57)
[2023-07-15] MEDS: CASPOFUNGIN ACETATE 50 MG in SODIUM CHLORIDE 250 ML IVPB SCH (13:05)
[2023-07-15] MEDS: SODIUM BICARBONATE 650 MG TABLET PO SCH ×2 (13:05→22:09)
[2023-07-15] MEDS: MIRTAZAPINE 15 MG TABLET (FP) PO SCH (22:09)
[2023-07-16] MEDS: INSULIN (LEVEMIR) 100 UNITS/ML UNITS SQ SCH (06:19)
[2023-07-16] MEDS: VANCOMYCIN ORAL SOLUTION 125 MG/2.5 ML PO SCH ×4 (06:19→18:30)
[2023-07-16] MEDS: BANATROL PLUS POWDER PACKET PO SCH ×3 (06:19→22:56)
[2023-07-16] MEDS ORDERED: INSULIN (NOVOLOG) ASPART 100 UNITS/ML 10ML VIAL ONE ×2 (06:31→11:50)
[2023-07-16] MEDS: INSULIN SLIDING SCALE (NOVOLOG) 1 VIAL SQ SCH ×3 (06:34→17:46)
[2023-07-16 07:15] LABS: HEMATOCRIT 25.1 % (35.4-49); HEMOGLOBIN 8.2 GM/dL (11.7-16.9); MCH 28.7 pg (25.7-33.7); MCHC 32.8 g/dl (32.0-35.9); MEAN CELL VOLUME 87.5 fl (80-96); MEAN PLT VOLUME 8.5 fl (7.5-11.1); PLATELET COUNT 307 10^3/uL (134-434); RBC 2.87 M/mm3 (4.00-5.60); RDW 14.3 % (11.9-15.9); WHITE BLOOD COUNT 13.5 K/mm3 (4.0-10.0)
[2023-07-16 07:36] LABS: CHLORIDE 105 mmol/L (98-107); SODIUM 132 mmol/L (136-145)
[2023-07-16 07:38] LABS: ALBUMIN 1.2 g/dl (3.4-5.0); ANION GAP 12 mmol/L (4-13); CALCIUM 7.6 mg/dL (8.5-10.1); CO2 15 mmol/L (21-32); GLUCOSE,RANDOM 256 mg/dL (74-106)
[2023-07-16 07:41] LABS: SGOT/AST 6 U/L (15-37); SGPT/ALT 15 U/L (13-61)
[2023-07-16 07:42] LABS: BILIRUBIN,TOTAL 0.2 mg/dL (0.2-1); TOT PROT 5.7 g/dl (6.4-8.2)
[2023-07-16 07:50] LABS: ALK PHOS 236 U/L (45-117); BLOOD UREA NITROGEN 104.2 mg/dL (7-18)
[2023-07-16] MEDS: TAMSULOSIN HCL 0.4 MG CAP PO SCH (08:36)
[2023-07-16] MEDS: SEVELAMER CARBONATE 800 MG TAB (FP) PO SCH ×4 (08:36→18:12)
[2023-07-16] MEDS: SODIUM BICARBONATE 650 MG TABLET PO SCH ×2 (10:27→22:56)
[2023-07-16] MEDS: CEFTRIAXONE 1 GM in DEXTROSE 5%-WATER - 50 ML IVPB SCH (10:27)
[2023-07-16] MEDS: LACTOBACILLUS ACIDOPHILUS 1 TABLET PO SCH (10:27)
[2023-07-16] MEDS: SODIUM CHLORIDE 1,000 ML IV SCH (11:32)
[2023-07-16] MEDS: CASPOFUNGIN ACETATE 50 MG in SODIUM CHLORIDE 250 ML IVPB SCH (11:56)
[2023-07-16] MEDS ORDERED: SODIUM CHLORIDE 500 ML IV STA (12:46)
[2023-07-16] MEDS: SODIUM CHLORIDE 0.45% 1,000 ML with SODIUM BICARBONATE 8.4% - 50 MEQ IV SCH (16:45)
[2023-07-16] MEDS: MIRTAZAPINE 15 MG TABLET (FP) PO SCH (22:56)
[2023-07-17] MEDS: VANCOMYCIN ORAL SOLUTION 125 MG/2.5 ML PO SCH ×4 (01:04→17:40)
[2023-07-17] MEDS ORDERED: INSULIN (NOVOLOG) ASPART 100 UNITS/ML 10ML VIAL ONE (05:58)
[2023-07-17] MEDS: BANATROL PLUS POWDER PACKET PO SCH ×3 (06:29→22:06)
[2023-07-17] MEDS: INSULIN (LEVEMIR) 100 UNITS/ML UNITS SQ SCH (06:35)
[2023-07-17] MEDS: INSULIN SLIDING SCALE (NOVOLOG) 1 VIAL SQ SCH ×3 (06:36→17:40)
[2023-07-17] MEDS: SODIUM CHLORIDE 0.45% 1,000 ML with SODIUM BICARBONATE 8.4% - 50 MEQ IV SCH ×4 (06:44→18:48)
[2023-07-17 07:25] LABS: HEMATOCRIT 23.9 % (35.4-49); HEMOGLOBIN 7.9 GM/dL (11.7-16.9); MCHC 33.2 g/dl (32.0-35.9); MEAN CELL VOLUME 87.6 fl (80-96); MEAN PLT VOLUME 8.4 fl (7.5-11.1); PLATELET COUNT 358 10^3/uL (134-434); RBC 2.73 M/mm3 (4.00-5.60); RDW 14.3 % (11.9-15.9); WHITE BLOOD COUNT 12.7 K/mm3 (4.0-10.0)
[2023-07-17 07:47] LABS: CHLORIDE 104 mmol/L (98-107); POTASSIUM 5.5 mmol/L (3.5-5.1); SODIUM 131 mmol/L (136-145)
[2023-07-17 07:51] LABS: CALCIUM 7.7 mg/dL (8.5-10.1)
[2023-07-17 07:53] LABS: ALBUMIN 1.2 g/dl (3.4-5.0); ANION GAP 12 mmol/L (4-13); BLOOD UREA NITROGEN 103.3 mg/dL (7-18); CO2 15 mmol/L (21-32); GLUCOSE,RANDOM 294 mg/dL (74-106)
[2023-07-17 07:55] LABS: SGOT/AST 9 U/L (15-37); SGPT/ALT 15 U/L (13-61)
[2023-07-17 07:57] LABS: BILIRUBIN,TOTAL 0.6 mg/dL (0.2-1); TOT PROT 5.9 g/dl (6.4-8.2)
[2023-07-17 08:07] LABS: ALK PHOS 296 U/L (45-117); CREATININE 9.8 mg/dL (0.55-1.3)
[2023-07-17] MEDS: SEVELAMER CARBONATE 800 MG TAB (FP) PO SCH ×3 (08:15→17:40)
[2023-07-17] MEDS: TAMSULOSIN HCL 0.4 MG CAP PO SCH (08:15)
[2023-07-17] MEDS ORDERED: SODIUM ZIRCONIUM CYCLOSILICATE (LOKELMA) 5 GM PACKET PO SCH (10:00)
[2023-07-17] MEDS: LACTOBACILLUS ACIDOPHILUS 1 TABLET PO SCH (10:14)
[2023-07-17] MEDS: SODIUM BICARBONATE 650 MG TABLET PO SCH ×2 (10:14→22:05)
[2023-07-17] MEDS: CEFTRIAXONE 1 GM in DEXTROSE 5%-WATER - 50 ML IVPB SCH (10:14)
[2023-07-17] MEDS: CASPOFUNGIN ACETATE 50 MG in SODIUM CHLORIDE 250 ML IVPB SCH (12:12)
[2023-07-17] MEDS ORDERED: SODIUM ZIRCONIUM CYCLOSILICATE (LOKELMA) 5 GM PACKET PO ONE (12:30)
[2023-07-17] MEDS: MIRTAZAPINE 15 MG TABLET (FP) PO SCH (22:05)
[2023-07-18] MEDS: BANATROL PLUS POWDER PACKET PO SCH ×3 (06:56→22:53)
[2023-07-18] MEDS: INSULIN (LEVEMIR) 100 UNITS/ML UNITS SQ SCH (06:56)
[2023-07-18] MEDS: INSULIN SLIDING SCALE (NOVOLOG) 1 VIAL SQ SCH ×3 (07:01→17:13)
[2023-07-18 07:35] LABS: BASO % 1.4 % (0-2.0); EOS % 2.5 % (0-4.5); HEMATOCRIT 24.3 % (35.4-49); LYMPH % 10.8 % (8-40); MCH 28.6 pg (25.7-33.7); MCHC 32.9 g/dl (32.0-35.9); MEAN CELL VOLUME 86.9 fl (80-96); MEAN PLT VOLUME 7.9 fl (7.5-11.1); MONO % 7.6 % (3.8-10.2); NEUT % 77.7 % (42.8-82.8); PLATELET COUNT 384 10^3/uL (134-434); RDW 14.4 % (11.9-15.9); WHITE BLOOD COUNT 12.9 K/mm3 (4.0-10.0)
[2023-07-18 07:51] LABS: CHLORIDE 103 mmol/L (98-107); POTASSIUM 5.2 mmol/L (3.5-5.1); SODIUM 132 mmol/L (136-145)
[2023-07-18 07:52] LABS: CALCIUM 7.5 mg/dL (8.5-10.1)
[2023-07-18 07:53] LABS: ALBUMIN 1.2 g/dl (3.4-5.0); ANION GAP 12 mmol/L (4-13); CO2 16 mmol/L (21-32); GLUCOSE,RANDOM 299 mg/dL (74-106)
[2023-07-18 07:56] LABS: SGOT/AST 7 U/L (15-37); SGPT/ALT 14 U/L (13-61)
[2023-07-18 07:58] LABS: ALK PHOS 296 U/L (45-117); BILIRUBIN,TOTAL 0.2 mg/dL (0.2-1); TOT PROT 5.8 g/dl (6.4-8.2)
[2023-07-18 08:01] LABS: BLOOD UREA NITROGEN 104.1 mg/dL (7-18)
[2023-07-18] MEDS: SODIUM ZIRCONIUM CYCLOSILICATE (LOKELMA) 5 GM PACKET PO SCH (08:30)
[2023-07-18] MEDS: SEVELAMER CARBONATE 800 MG TAB (FP) PO SCH ×3 (10:37→18:40)
[2023-07-18] MEDS: TAMSULOSIN HCL 0.4 MG CAP PO SCH (10:37)
[2023-07-18] MEDS: CEFTRIAXONE 1 GM in DEXTROSE 5%-WATER - 50 ML IVPB SCH (10:38)
[2023-07-18] MEDS: LACTOBACILLUS ACIDOPHILUS 1 TABLET PO SCH (10:38)
[2023-07-18] MEDS: SODIUM BICARBONATE 650 MG TABLET PO SCH ×2 (10:38→22:43)
[2023-07-18] MEDS: CASPOFUNGIN ACETATE 50 MG in SODIUM CHLORIDE 250 ML IVPB SCH (14:02)
[2023-07-18] MEDS: SODIUM CHLORIDE 0.45% 1,000 ML with SODIUM BICARBONATE 8.4% - 50 MEQ IV SCH ×2 (14:03→22:44)
[2023-07-18 21:06] LABS: ANTIGLOMERULAR BASEMENT MEN.AB <0.2 units (0.0-0.9)
[2023-07-18] MEDS: MIRTAZAPINE 15 MG TABLET (FP) PO SCH (22:42)
[2023-07-19] MEDS: BANATROL PLUS POWDER PACKET PO SCH ×3 (06:29→21:54)
[2023-07-19] MEDS: INSULIN (LEVEMIR) 100 UNITS/ML UNITS SQ SCH (06:31)
[2023-07-19] MEDS: INSULIN SLIDING SCALE (NOVOLOG) 1 VIAL SQ SCH ×3 (06:31→17:38)
[2023-07-19 07:53] LABS: HEMATOCRIT 25.5 % (35.4-49); HEMOGLOBIN 8.4 GM/dL (11.7-16.9); MCH 28.8 pg (25.7-33.7); MCHC 32.9 g/dl (32.0-35.9); MEAN CELL VOLUME 87.5 fl (80-96); MEAN PLT VOLUME 7.5 fl (7.5-11.1); PLATELET COUNT 432 10^3/uL (134-434); RBC 2.91 M/mm3 (4.00-5.60); RDW 14.6 % (11.9-15.9); WHITE BLOOD COUNT 13.7 K/mm3 (4.0-10.0)
[2023-07-19 08:17] LABS: CHLORIDE 105 mmol/L (98-107); POTASSIUM 5.3 mmol/L (3.5-5.1); SODIUM 133 mmol/L (136-145)
[2023-07-19 08:19] LABS: CALCIUM 7.6 mg/dL (8.5-10.1)
[2023-07-19 08:20] LABS: ALBUMIN 1.2 g/dl (3.4-5.0); ANION GAP 11 mmol/L (4-13); CO2 17 mmol/L (21-32); GLUCOSE,RANDOM 279 mg/dL (74-106)
[2023-07-19 08:23] LABS: SGOT/AST 8 U/L (15-37); SGPT/ALT 14 U/L (13-61)
[2023-07-19 08:25] LABS: ALK PHOS 306 U/L (45-117); BILIRUBIN,TOTAL 0.2 mg/dL (0.2-1); TOT PROT 5.9 g/dl (6.4-8.2)
[2023-07-19 08:29] LABS: CREATININE 10.7 mg/dL (0.55-1.3)
[2023-07-19] MEDS: SODIUM ZIRCONIUM CYCLOSILICATE (LOKELMA) 5 GM PACKET PO SCH (10:47)
[2023-07-19] MEDS: TAMSULOSIN HCL 0.4 MG CAP PO SCH (10:47)
[2023-07-19] MEDS: LACTOBACILLUS ACIDOPHILUS 1 TABLET PO SCH (10:47)
[2023-07-19] MEDS: SEVELAMER CARBONATE 800 MG TAB (FP) PO SCH ×3 (10:47→17:39)
[2023-07-19] MEDS: SODIUM BICARBONATE 650 MG TABLET PO SCH ×2 (10:47→21:55)
[2023-07-19] MEDS: CASPOFUNGIN ACETATE 50 MG in SODIUM CHLORIDE 250 ML IVPB SCH (11:08)
[2023-07-19] MEDS: SODIUM CHLORIDE 0.45% 1,000 ML IV SCH (13:00)
[2023-07-19] MEDS: HEPARIN NA (PORCINE) 5,000 UNITS/ML 1ML VIAL SQ SCH ×2 (14:09→21:55)
[2023-07-19 17:10] LABS: ATYPICAL pANCA <1:20 titer (Neg:<1:20); C-ANCA <1:20 titer (Neg:<1:20)
[2023-07-19] MEDS: MIRTAZAPINE 15 MG TABLET (FP) PO SCH (21:55)
[2023-07-20] MEDS: INSULIN SLIDING SCALE (NOVOLOG) 1 VIAL SQ SCH ×3 (06:54→18:29)
[2023-07-20] MEDS: INSULIN (LEVEMIR) 100 UNITS/ML UNITS SQ SCH (06:54)
[2023-07-20] MEDS: BANATROL PLUS POWDER PACKET PO SCH ×3 (06:55→21:55)
[2023-07-20] MEDS: HEPARIN NA (PORCINE) 5,000 UNITS/ML 1ML VIAL SQ SCH ×3 (06:55→22:01)
[2023-07-20] MEDS: TAMSULOSIN HCL 0.4 MG CAP PO SCH (08:14)
[2023-07-20] MEDS: SEVELAMER CARBONATE 800 MG TAB (FP) PO SCH ×3 (08:14→18:34)
[2023-07-20 09:18] LABS: HEMATOCRIT 22.1 % (35.4-49); HEMOGLOBIN 7.4 GM/dL (11.7-16.9); MCH 28.6 pg (25.7-33.7); MCHC 33.5 g/dl (32.0-35.9); MEAN CELL VOLUME 85.5 fl (80-96); MEAN PLT VOLUME 7.6 fl (7.5-11.1); PLATELET COUNT 422 10^3/uL (134-434); RBC 2.59 M/mm3 (4.00-5.60); RDW 14.7 % (11.9-15.9); WHITE BLOOD COUNT 13.7 K/mm3 (4.0-10.0)
[2023-07-20 09:38] LABS: CHLORIDE 104 mmol/L (98-107); POTASSIUM 5.6 mmol/L (3.5-5.1); SODIUM 131 mmol/L (136-145)
[2023-07-20 09:44] LABS: CALCIUM 8.3 mg/dL (8.5-10.1)
[2023-07-20 09:45] LABS: ALBUMIN 1.2 g/dl (3.4-5.0); ANION GAP 13 mmol/L (4-13); CO2 15 mmol/L (21-32); GLUCOSE,RANDOM 237 mg/dL (74-106)
[2023-07-20 09:48] LABS: SGOT/AST 6 U/L (15-37); SGPT/ALT 11 U/L (13-61)
[2023-07-20 09:49] LABS: BILIRUBIN,TOTAL 0.3 mg/dL (0.2-1); TOT PROT 5.9 g/dl (6.4-8.2)
[2023-07-20] MEDS: LACTOBACILLUS ACIDOPHILUS 1 TABLET PO SCH (10:04)
[2023-07-20] MEDS: SODIUM ZIRCONIUM CYCLOSILICATE (LOKELMA) 5 GM PACKET PO SCH ×2 (10:04→21:56)
[2023-07-20] MEDS: SODIUM BICARBONATE 650 MG TABLET PO SCH ×2 (10:04→21:57)
[2023-07-20 10:48] LABS: ALK PHOS 250 U/L (45-117); BLOOD UREA NITROGEN 110.8 mg/dL (7-18); CREATININE 11.3 mg/dL (0.55-1.3); PHOSPHOROUS 9.1 mg/dL (2.5-4.9)
[2023-07-20] MEDS ORDERED: SODIUM CHLORIDE 250 ML IV PRN (11:30)
[2023-07-20] MEDS: SODIUM CHLORIDE 0.45% 1,000 ML IV SCH ×2 (11:50→14:24)
[2023-07-20] MEDS: CASPOFUNGIN ACETATE 50 MG in SODIUM CHLORIDE 250 ML IVPB SCH (11:52)
[2023-07-20] MEDS: MIRTAZAPINE 15 MG TABLET (FP) PO SCH (21:57)
[2023-07-21] MEDS: BANATROL PLUS POWDER PACKET PO SCH ×3 (05:55→22:03)
[2023-07-21] MEDS: HEPARIN NA (PORCINE) 5,000 UNITS/ML 1ML VIAL SQ SCH ×3 (05:55→22:04)
[2023-07-21] MEDS ORDERED: INSULIN (NOVOLOG) ASPART 100 UNITS/ML 10ML VIAL ONE (06:46)
[2023-07-21] MEDS: INSULIN (LEVEMIR) 100 UNITS/ML UNITS SQ SCH (06:48)
[2023-07-21] MEDS: INSULIN SLIDING SCALE (NOVOLOG) 1 VIAL SQ SCH ×3 (06:48→16:38)
[2023-07-21] MEDS: SEVELAMER CARBONATE 800 MG TAB (FP) PO SCH ×3 (07:59→16:51)
[2023-07-21] MEDS: TAMSULOSIN HCL 0.4 MG CAP PO SCH (07:59)
[2023-07-21 08:36] LABS: CHLORIDE 104 mmol/L (98-107); POTASSIUM 4.8 mmol/L (3.5-5.1); SODIUM 134 mmol/L (136-145)
[2023-07-21 08:42] LABS: ALBUMIN 1.3 g/dl (3.4-5.0); ANION GAP 13 mmol/L (4-13); CALCIUM 7.8 mg/dL (8.5-10.1); CO2 18 mmol/L (21-32); MAGNESIUM 2.3 mg/dL (1.8-2.4)
[2023-07-21 08:44] LABS: SGPT/ALT 9 U/L (13-61)
[2023-07-21 08:45] LABS: PHOSPHOROUS 7.2 mg/dL (2.5-4.9); SGOT/AST 8 U/L (15-37)
[2023-07-21 08:46] LABS: BILIRUBIN,TOTAL 0.2 mg/dL (0.2-1); TOT PROT 6.2 g/dl (6.4-8.2)
[2023-07-21 08:47] LABS: ALK PHOS 259 U/L (45-117)
[2023-07-21 08:59] LABS: BASO % 1.2 % (0-2.0); EOS % 1.3 % (0-4.5); HEMATOCRIT 21.5 % (35.4-49); LYMPH % 10.6 % (8-40); MCHC 32.6 g/dl (32.0-35.9); MEAN PLT VOLUME 7.6 fl (7.5-11.1); MONO % 5.9 % (3.8-10.2); PLATELET COUNT 310 10^3/uL (134-434); RDW 14.8 % (11.9-15.9); WHITE BLOOD COUNT 12.6 K/mm3 (4.0-10.0)
[2023-07-21 09:18] LABS: CREATININE 9.4 mg/dL (0.55-1.3); GLUCOSE,RANDOM 429 mg/dL (74-106)
[2023-07-21] MEDS: SODIUM BICARBONATE 650 MG TABLET PO SCH (09:34)
[2023-07-21] MEDS: LACTOBACILLUS ACIDOPHILUS 1 TABLET PO SCH (09:34)
[2023-07-21] MEDS: SODIUM ZIRCONIUM CYCLOSILICATE (LOKELMA) 5 GM PACKET PO SCH (09:35)
[2023-07-21] MEDS ORDERED: SODIUM CHLORIDE 250 ML IV PRN (11:56)
[2023-07-21] MEDS: SODIUM CHLORIDE 0.45% 1,000 ML IV SCH (12:14)
[2023-07-21] MEDS: ACETAMINOPHEN 500 MG TABLET (FP) PO PRN (12:21)
[2023-07-21] MEDS: CASPOFUNGIN ACETATE 50 MG in SODIUM CHLORIDE 250 ML IVPB SCH (12:41)
[2023-07-21] MEDS: MIRTAZAPINE 15 MG TABLET (FP) PO SCH (22:04)
[2023-07-22] MEDS ORDERED: INSULIN (NOVOLOG) ASPART 100 UNITS/ML 10ML VIAL ONE (06:01)
[2023-07-22] MEDS: INSULIN (LEVEMIR) 100 UNITS/ML UNITS SQ SCH (06:19)
[2023-07-22] MEDS: SODIUM CHLORIDE 0.45% 1,000 ML IV SCH ×3 (06:20→23:49)
[2023-07-22] MEDS: INSULIN SLIDING SCALE (NOVOLOG) 1 VIAL SQ SCH ×3 (06:20→16:22)
[2023-07-22] MEDS: BANATROL PLUS POWDER PACKET PO SCH ×3 (06:25→22:04)
[2023-07-22] MEDS: HEPARIN NA (PORCINE) 5,000 UNITS/ML 1ML VIAL SQ SCH ×4 (06:33→22:04)
[2023-07-22] MEDS: SEVELAMER CARBONATE 800 MG TAB (FP) PO SCH ×3 (08:00→18:10)
[2023-07-22] MEDS: LACTOBACILLUS ACIDOPHILUS 1 TABLET PO SCH (10:19)
[2023-07-22] MEDS: TAMSULOSIN HCL 0.4 MG CAP PO SCH (10:19)
[2023-07-22] MEDS ORDERED: HEPARIN NA (PORCINE) 5,000 UNITS/ML 1ML VIAL IVPUSH ONE (11:56)
[2023-07-22] MEDS ORDERED: VANCOMYCIN 250 MG/5 ML ORAL SOLUTION PO SCH (12:00)
[2023-07-22] MEDS: CASPOFUNGIN ACETATE 50 MG in SODIUM CHLORIDE 250 ML IVPB SCH (12:05)
[2023-07-22] MEDS: ZINC OXIDE 20% TOPICAL OINTMENT 30 GM TUBE TP SCH ×2 (12:05→22:12)
[2023-07-22] MEDS: VANCOMYCIN ORAL SOLUTION 125 MG/2.5 ML PO SCH ×3 (13:26→23:50)
[2023-07-22] MEDS: MIRTAZAPINE 15 MG TABLET (FP) PO SCH (22:04)
[2023-07-23] MEDS ORDERED: INSULIN (NOVOLOG) ASPART 100 UNITS/ML 10ML VIAL ONE ×2 (06:28→12:05)
[2023-07-23] MEDS: VANCOMYCIN ORAL SOLUTION 125 MG/2.5 ML PO SCH ×3 (06:30→17:20)
[2023-07-23] MEDS: INSULIN (LEVEMIR) 100 UNITS/ML UNITS SQ SCH (06:30)
[2023-07-23] MEDS: HEPARIN NA (PORCINE) 5,000 UNITS/ML 1ML VIAL SQ SCH ×3 (06:30→22:16)
[2023-07-23] MEDS: INSULIN SLIDING SCALE (NOVOLOG) 1 VIAL SQ SCH ×3 (06:30→17:17)
[2023-07-23] MEDS: BANATROL PLUS POWDER PACKET PO SCH ×3 (06:30→22:16)
[2023-07-23] MEDS: SEVELAMER CARBONATE 800 MG TAB (FP) PO SCH ×3 (08:28→17:20)
[2023-07-23] MEDS: TAMSULOSIN HCL 0.4 MG CAP PO SCH (08:28)
[2023-07-23] MEDS: LACTOBACILLUS ACIDOPHILUS 1 TABLET PO SCH (10:45)
[2023-07-23] MEDS: ZINC OXIDE 20% TOPICAL OINTMENT 30 GM TUBE TP SCH ×2 (10:45→22:16)
[2023-07-23 11:21] LABS: BASO % 0.6 % (0-2.0); EOS % 1.2 % (0-4.5); HEMATOCRIT 20.9 % (35.4-49); LYMPH % 11.3 % (8-40); MCH 28.1 pg (25.7-33.7); MCHC 32.6 g/dl (32.0-35.9); MEAN CELL VOLUME 86.2 fl (80-96); MEAN PLT VOLUME 7.2 fl (7.5-11.1); MONO % 4.9 % (3.8-10.2); PLATELET COUNT 264 10^3/uL (134-434); RBC 2.43 M/mm3 (4.00-5.60); RDW 14.7 % (11.9-15.9); WHITE BLOOD COUNT 15.6 K/mm3 (4.0-10.0)
[2023-07-23 11:24] LABS: HEMOGLOBIN 6.8 GM/dL (11.7-16.9)
[2023-07-23 11:52] LABS: POTASSIUM 4.3 mmol/L (3.5-5.1)
[2023-07-23 11:55] LABS: ALBUMIN 1.3 g/dl (3.4-5.0); CALCIUM 7.9 mg/dL (8.5-10.1); MAGNESIUM 2.2 mg/dL (1.8-2.4)
[2023-07-23 11:58] LABS: CREATININE 7.3 mg/dL (0.55-1.3); PHOSPHOROUS 5.2 mg/dL (2.5-4.9)
[2023-07-23 12:00] LABS: BILIRUBIN,TOTAL 0.4 mg/dL (0.2-1); TOT PROT 6.3 g/dl (6.4-8.2)
[2023-07-23] MEDS: CASPOFUNGIN ACETATE 50 MG in SODIUM CHLORIDE 250 ML IVPB SCH (12:11)
[2023-07-23] MEDS ORDERED: SODIUM CHLORIDE 250 ML IV PRN (13:05)
[2023-07-23 16:21] LABS: HEMATOCRIT 20.9 % (35.4-49); MCH 27.8 pg (25.7-33.7); MCHC 32.4 g/dl (32.0-35.9); MEAN CELL VOLUME 85.8 fl (80-96); MEAN PLT VOLUME 6.8 fl (7.5-11.1); PLATELET COUNT 254 10^3/uL (134-434); RBC 2.43 M/mm3 (4.00-5.60); RDW 14.8 % (11.9-15.9); WHITE BLOOD COUNT 15.8 K/mm3 (4.0-10.0)
[2023-07-23 16:34] LABS: HEMOGLOBIN 6.8 GM/dL (11.7-16.9)
[2023-07-23] MEDS: MIRTAZAPINE 15 MG TABLET (FP) PO SCH (22:16)
[2023-07-23] MEDS: SODIUM CHLORIDE 0.45% 1,000 ML IV SCH (22:20)
[2023-07-24] MEDS: VANCOMYCIN ORAL SOLUTION 125 MG/2.5 ML PO SCH ×3 (01:00→11:58)
[2023-07-24] MEDS: HEPARIN NA (PORCINE) 5,000 UNITS/ML 1ML VIAL SQ SCH ×3 (06:26→22:32)
[2023-07-24] MEDS: BANATROL PLUS POWDER PACKET PO SCH ×3 (06:26→22:34)
[2023-07-24] MEDS: INSULIN (LEVEMIR) 100 UNITS/ML UNITS SQ SCH ×2 (07:10→22:31)
[2023-07-24] MEDS: INSULIN SLIDING SCALE (NOVOLOG) 1 VIAL SQ SCH ×3 (07:10→17:52)
[2023-07-24] MEDS ORDERED: INSULIN (NOVOLOG) ASPART 100 UNITS/ML 10ML VIAL ONE (07:38)
[2023-07-24] MEDS ORDERED: INSULIN (LEVEMIR) 100 UNITS/ML UNITS SQ ONE (07:38)
[2023-07-24] MEDS: SEVELAMER CARBONATE 800 MG TAB (FP) PO SCH ×3 (08:00→17:19)
[2023-07-24 08:12] LABS: CHLORIDE 106 mmol/L (98-107); POTASSIUM 4.9 mmol/L (3.5-5.1); SODIUM 133 mmol/L (136-145)
[2023-07-24 08:23] LABS: EOS % 1.1 % (0-4.5); GLUCOSE,RANDOM 309 mg/dL (74-106); HEMATOCRIT 25.3 % (35.4-49); HEMOGLOBIN 8.2 GM/dL (11.7-16.9); LYMPH % 9.9 % (8-40); MCH 28.3 pg (25.7-33.7); MCHC 32.4 g/dl (32.0-35.9); MEAN CELL VOLUME 87.3 fl (80-96); MEAN PLT VOLUME 7.8 fl (7.5-11.1); MONO % 6.1 % (3.8-10.2); NEUT % 81.9 % (42.8-82.8); PLATELET COUNT 262 10^3/uL (134-434); RDW 14.6 % (11.9-15.9)
[2023-07-24 08:24] LABS: BLOOD UREA NITROGEN 57.5 mg/dL (7-18); CALCIUM 8.1 mg/dL (8.5-10.1)
[2023-07-24 08:25] LABS: ALBUMIN 1.3 g/dl (3.4-5.0); ANION GAP 6 mmol/L (4-13); CO2 20 mmol/L (21-32); MAGNESIUM 2.2 mg/dL (1.8-2.4)
[2023-07-24 08:27] LABS: SGOT/AST 11 U/L (15-37); SGPT/ALT 13 U/L (13-61)
[2023-07-24 08:28] LABS: BILIRUBIN,TOTAL 0.7 mg/dL (0.2-1); PHOSPHOROUS 5.9 mg/dL (2.5-4.9)
[2023-07-24 08:29] LABS: TOT PROT 6.5 g/dl (6.4-8.2)
[2023-07-24 08:30] LABS: ALK PHOS 276 U/L (45-117)
[2023-07-24 08:32] LABS: CREATININE 7.9 mg/dL (0.55-1.3)
[2023-07-24] MEDS: TAMSULOSIN HCL 0.4 MG CAP PO SCH (10:23)
[2023-07-24] MEDS: LACTOBACILLUS ACIDOPHILUS 1 TABLET PO SCH (10:23)
[2023-07-24] MEDS: ZINC OXIDE 20% TOPICAL OINTMENT 30 GM TUBE TP SCH ×2 (10:25→22:32)
[2023-07-24] MEDS: CASPOFUNGIN ACETATE 50 MG in SODIUM CHLORIDE 250 ML IVPB SCH (11:58)
[2023-07-24] MEDS: SODIUM CHLORIDE 0.45% 1,000 ML IV SCH (13:00)
[2023-07-24] MEDS: MIRTAZAPINE 15 MG TABLET (FP) PO SCH (22:30)
[2023-07-25] MEDS: HEPARIN NA (PORCINE) 5,000 UNITS/ML 1ML VIAL SQ SCH ×3 (06:37→22:24)
[2023-07-25] MEDS: INSULIN (LEVEMIR) 100 UNITS/ML UNITS SQ SCH ×2 (06:37→22:24)
[2023-07-25] MEDS: BANATROL PLUS POWDER PACKET PO SCH ×3 (06:43→22:24)
[2023-07-25] MEDS: INSULIN SLIDING SCALE (NOVOLOG) 1 VIAL SQ SCH ×3 (06:43→17:04)
[2023-07-25 08:31] LABS: BASO % 0.9 % (0-2.0); EOS % 1.1 % (0-4.5); HEMATOCRIT 22.9 % (35.4-49); HEMOGLOBIN 7.8 GM/dL (11.7-16.9); LYMPH % 12.1 % (8-40); MCH 29.2 pg (25.7-33.7); MCHC 34.2 g/dl (32.0-35.9); MEAN CELL VOLUME 85.3 fl (80-96); MEAN PLT VOLUME 7.4 fl (7.5-11.1); MONO % 4.9 % (3.8-10.2); PLATELET COUNT 188 10^3/uL (134-434); RBC 2.68 M/mm3 (4.00-5.60); RDW 14.5 % (11.9-15.9); WHITE BLOOD COUNT 16.8 K/mm3 (4.0-10.0)
[2023-07-25 08:34] LABS: POTASSIUM 4.3 mmol/L (3.5-5.1)
[2023-07-25 08:45] LABS: ALBUMIN 1.3 g/dl (3.4-5.0); BLOOD UREA NITROGEN 44.8 mg/dL (7-18)
[2023-07-25 08:48] LABS: CREATININE 6.1 mg/dL (0.55-1.3); PHOSPHOROUS 4.8 mg/dL (2.5-4.9)
[2023-07-25 08:50] LABS: BILIRUBIN,TOTAL 0.3 mg/dL (0.2-1); TOT PROT 6.3 g/dl (6.4-8.2)
[2023-07-25] MEDS: TAMSULOSIN HCL 0.4 MG CAP PO SCH (10:05)
[2023-07-25] MEDS: SEVELAMER CARBONATE 800 MG TAB (FP) PO SCH ×3 (10:06→17:07)
[2023-07-25] MEDS: LACTOBACILLUS ACIDOPHILUS 1 TABLET PO SCH (10:06)
[2023-07-25] MEDS: ZINC OXIDE 20% TOPICAL OINTMENT 30 GM TUBE TP SCH ×2 (10:14→22:25)
[2023-07-25] MEDS: CASPOFUNGIN ACETATE 50 MG in SODIUM CHLORIDE 250 ML IVPB SCH (11:00)
[2023-07-25] MEDS: LIDOCAINE 4% PATCH TP SCH (13:38)
[2023-07-25] MEDS: SODIUM CHLORIDE 0.45% 1,000 ML IV SCH (13:40)
[2023-07-25] MEDS: LIDOCAINE PATCH REMOVAL MC SCH (22:00)
[2023-07-25] MEDS: MIRTAZAPINE 15 MG TABLET (FP) PO SCH (22:24)
[2023-07-26] MEDS: BANATROL PLUS POWDER PACKET PO SCH ×3 (05:01→21:57)
[2023-07-26] MEDS: INSULIN (LEVEMIR) 100 UNITS/ML UNITS SQ SCH ×2 (06:48→21:58)
[2023-07-26] MEDS: INSULIN SLIDING SCALE (NOVOLOG) 1 VIAL SQ SCH ×4 (06:48→17:44)
[2023-07-26 07:23] LABS: BASO % 1.1 % (0-2.0); EOS % 1.4 % (0-4.5); HEMATOCRIT 23.7 % (35.4-49); HEMOGLOBIN 7.8 GM/dL (11.7-16.9); LYMPH % 12.2 % (8-40); MCH 28.6 pg (25.7-33.7); MEAN CELL VOLUME 86.5 fl (80-96); MEAN PLT VOLUME 7.3 fl (7.5-11.1); MONO % 5.6 % (3.8-10.2); NEUT % 79.7 % (42.8-82.8); PLATELET COUNT 184 10^3/uL (134-434); RBC 2.74 M/mm3 (4.00-5.60); RDW 14.4 % (11.9-15.9); WHITE BLOOD COUNT 15.6 K/mm3 (4.0-10.0)
[2023-07-26] MEDS ORDERED: INSULIN (NOVOLOG) ASPART 100 UNITS/ML 10ML VIAL ONE ×2 (08:17→17:40)
[2023-07-26 08:34] LABS: POTASSIUM 4.9 mmol/L (3.5-5.1)
[2023-07-26] MEDS ORDERED: MIDAZOLAM HCL 2 MG/2 ML SINGLE DOSE VIAL ONE (08:42)
[2023-07-26] MEDS ORDERED: FENTANYL CITRATE/PF 50 MCG/ML VIAL ONE ×2 (08:42→08:57)
[2023-07-26 08:47] LABS: ALBUMIN 1.4 g/dl (3.4-5.0); BLOOD UREA NITROGEN 45.3 mg/dL (7-18); CALCIUM 8.1 mg/dL (8.5-10.1)
[2023-07-26 08:50] LABS: CREATININE 6.7 mg/dL (0.55-1.3); PHOSPHOROUS 5.2 mg/dL (2.5-4.9)
[2023-07-26 08:51] LABS: BILIRUBIN,TOTAL 0.5 mg/dL (0.2-1)
[2023-07-26 08:52] LABS: TOT PROT 6.4 g/dl (6.4-8.2)
[2023-07-26] MEDS ORDERED: LIDOCAINE HCL 2% JELLY 11 ML TP ONE (08:53)
[2023-07-26] MEDS: SEVELAMER CARBONATE 800 MG TAB (FP) PO SCH ×3 (09:08→17:44)
[2023-07-26] MEDS: LIDOCAINE 4% PATCH TP SCH (10:29)
[2023-07-26] MEDS: LACTOBACILLUS ACIDOPHILUS 1 TABLET PO SCH (10:30)
[2023-07-26] MEDS: TAMSULOSIN HCL 0.4 MG CAP PO SCH (10:30)
[2023-07-26] MEDS: ZINC OXIDE 20% TOPICAL OINTMENT 30 GM TUBE TP SCH ×2 (12:16→21:59)
[2023-07-26] MEDS ORDERED: SODIUM CHLORIDE 250 ML IV PRN (14:59)
[2023-07-26] MEDS: CASPOFUNGIN ACETATE 50 MG in SODIUM CHLORIDE 250 ML IVPB SCH (16:00)
[2023-07-26 19:11] LABS: STOOL CHLORIDE < 20 mmol/L (.); STOOL POTASSIUM 32 mmol/L (.); STOOL SODIUM 27 mmol/L (.)
[2023-07-26] MEDS: MIRTAZAPINE 15 MG TABLET (FP) PO SCH (21:58)
[2023-07-26] MEDS: LIDOCAINE PATCH REMOVAL MC SCH (21:58)
[2023-07-26] MEDS: HEPARIN NA (PORCINE) 5,000 UNITS/ML 1ML VIAL SQ SCH (21:58)
[2023-07-27] MEDS: HEPARIN NA (PORCINE) 5,000 UNITS/ML 1ML VIAL SQ SCH ×3 (05:37→23:03)
[2023-07-27] MEDS: BANATROL PLUS POWDER PACKET PO SCH ×3 (05:37→23:06)
[2023-07-27] MEDS: INSULIN (LEVEMIR) 100 UNITS/ML UNITS SQ SCH ×2 (06:06→23:02)
[2023-07-27] MEDS: INSULIN SLIDING SCALE (NOVOLOG) 1 VIAL SQ SCH ×3 (06:07→17:13)
[2023-07-27] MEDS ORDERED: INSULIN (NOVOLOG) ASPART 100 UNITS/ML 10ML VIAL ONE (06:10)
[2023-07-27 07:38] LABS: BASO % 0.9 % (0-2.0); HEMATOCRIT 22.2 % (35.4-49); HEMOGLOBIN 7.2 GM/dL (11.7-16.9); MCH 28.4 pg (25.7-33.7); MCHC 32.5 g/dl (32.0-35.9); MEAN CELL VOLUME 87.3 fl (80-96); MEAN PLT VOLUME 7.3 fl (7.5-11.1); MONO % 5.2 % (3.8-10.2); NEUT % 79.9 % (42.8-82.8); PLATELET COUNT 155 10^3/uL (134-434); RBC 2.54 M/mm3 (4.00-5.60); RDW 14.7 % (11.9-15.9); WHITE BLOOD COUNT 14.7 K/mm3 (4.0-10.0)
[2023-07-27 07:59] LABS: POTASSIUM 3.9 mmol/L (3.5-5.1)
[2023-07-27 08:06] LABS: ALBUMIN 1.3 g/dl (3.4-5.0); BLOOD UREA NITROGEN 28.3 mg/dL (7-18); CALCIUM 7.6 mg/dL (8.5-10.1); MAGNESIUM 1.9 mg/dL (1.8-2.4)
[2023-07-27 08:09] LABS: CREATININE 4.6 mg/dL (0.55-1.3); PHOSPHOROUS 3.9 mg/dL (2.5-4.9)
[2023-07-27 08:11] LABS: BILIRUBIN,TOTAL 0.2 mg/dL (0.2-1); TOT PROT 6.4 g/dl (6.4-8.2)
[2023-07-27] MEDS: SEVELAMER CARBONATE 800 MG TAB (FP) PO SCH ×3 (08:11→17:02)
[2023-07-27] MEDS: TAMSULOSIN HCL 0.4 MG CAP PO SCH (08:11)
[2023-07-27] MEDS: LACTOBACILLUS ACIDOPHILUS 1 TABLET PO SCH (10:11)
[2023-07-27] MEDS: LIDOCAINE 4% PATCH TP SCH (10:11)
[2023-07-27] MEDS: ZINC OXIDE 20% TOPICAL OINTMENT 30 GM TUBE TP SCH ×2 (10:12→23:04)
[2023-07-27] MEDS: CASPOFUNGIN ACETATE 50 MG in SODIUM CHLORIDE 250 ML IVPB SCH (11:29)
[2023-07-27] MEDS: LIDOCAINE PATCH REMOVAL MC SCH (23:04)
[2023-07-27] MEDS: MIRTAZAPINE 15 MG TABLET (FP) PO SCH (23:04)
[2023-07-28] MEDS: INSULIN SLIDING SCALE (NOVOLOG) 1 VIAL SQ SCH ×3 (06:30→17:24)
[2023-07-28] MEDS: HEPARIN NA (PORCINE) 5,000 UNITS/ML 1ML VIAL SQ SCH ×4 (06:31→22:25)
[2023-07-28] MEDS: INSULIN (LEVEMIR) 100 UNITS/ML UNITS SQ SCH ×2 (06:31→22:30)
[2023-07-28] MEDS: BANATROL PLUS POWDER PACKET PO SCH ×4 (06:32→22:30)
[2023-07-28 08:20] LABS: BASO % 0.8 % (0-2.0); EOS % 1.7 % (0-4.5); HEMATOCRIT 21.8 % (35.4-49); HEMOGLOBIN 7.4 GM/dL (11.7-16.9); LYMPH % 12.3 % (8-40); MCH 29.1 pg (25.7-33.7); MCHC 34.1 g/dl (32.0-35.9); MEAN CELL VOLUME 85.3 fl (80-96); MEAN PLT VOLUME 7.3 fl (7.5-11.1); MONO % 4.9 % (3.8-10.2); NEUT % 80.3 % (42.8-82.8); PLATELET COUNT 149 10^3/uL (134-434); RBC 2.56 M/mm3 (4.00-5.60)
[2023-07-28 08:27] LABS: POTASSIUM 3.9 mmol/L (3.5-5.1)
[2023-07-28 08:29] LABS: CALCIUM 7.9 mg/dL (8.5-10.1)
[2023-07-28 08:30] LABS: ALBUMIN 1.4 g/dl (3.4-5.0); BLOOD UREA NITROGEN 32.8 mg/dL (7-18); MAGNESIUM 1.9 mg/dL (1.8-2.4)
[2023-07-28 08:33] LABS: CREATININE 5.5 mg/dL (0.55-1.3); PHOSPHOROUS 4.1 mg/dL (2.5-4.9)
[2023-07-28 08:35] LABS: BILIRUBIN,TOTAL 0.2 mg/dL (0.2-1); TOT PROT 6.6 g/dl (6.4-8.2)
[2023-07-28] MEDS: LIDOCAINE 4% PATCH TP SCH (09:43)
[2023-07-28] MEDS: SEVELAMER CARBONATE 800 MG TAB (FP) PO SCH ×3 (09:43→17:24)
[2023-07-28] MEDS: TAMSULOSIN HCL 0.4 MG CAP PO SCH (09:43)
[2023-07-28] MEDS: LACTOBACILLUS ACIDOPHILUS 1 TABLET PO SCH (09:43)
[2023-07-28] MEDS: ZINC OXIDE 20% TOPICAL OINTMENT 30 GM TUBE TP SCH ×2 (09:44→22:32)
[2023-07-28] MEDS: CASPOFUNGIN ACETATE 50 MG in SODIUM CHLORIDE 250 ML IVPB SCH (12:18)
[2023-07-28] MEDS: MIRTAZAPINE 15 MG TABLET (FP) PO SCH (22:25)
[2023-07-28] MEDS: LIDOCAINE PATCH REMOVAL MC SCH (22:30)
[2023-07-28] MEDS ORDERED: SODIUM CHLORIDE 250 ML IV PRN (22:42)
[2023-07-29] MEDS: INSULIN (LEVEMIR) 100 UNITS/ML UNITS SQ SCH ×2 (06:30→22:05)
[2023-07-29] MEDS: HEPARIN NA (PORCINE) 5,000 UNITS/ML 1ML VIAL SQ SCH ×3 (06:30→22:04)
[2023-07-29] MEDS: BANATROL PLUS POWDER PACKET PO SCH ×4 (06:30→22:26)
[2023-07-29] MEDS: INSULIN SLIDING SCALE (NOVOLOG) 1 VIAL SQ SCH ×3 (06:31→16:41)
[2023-07-29 07:39] LABS: BASO % 1.1 % (0-2.0); EOS % 1.9 % (0-4.5); HEMATOCRIT 20.8 % (35.4-49); LYMPH % 14.4 % (8-40); MCH 28.7 pg (25.7-33.7); MCHC 32.9 g/dl (32.0-35.9); MEAN CELL VOLUME 87.3 fl (80-96); MEAN PLT VOLUME 7.9 fl (7.5-11.1); MONO % 5.6 % (3.8-10.2); PLATELET COUNT 155 10^3/uL (134-434); RBC 2.38 M/mm3 (4.00-5.60); RDW 14.7 % (11.9-15.9); WHITE BLOOD COUNT 13.5 K/mm3 (4.0-10.0)
[2023-07-29] MEDS: SEVELAMER CARBONATE 800 MG TAB (FP) PO SCH ×3 (07:44→16:42)
[2023-07-29] MEDS: TAMSULOSIN HCL 0.4 MG CAP PO SCH (07:46)
[2023-07-29 07:52] LABS: POTASSIUM 4.5 mmol/L (3.5-5.1)
[2023-07-29 07:57] LABS: ALBUMIN 1.5 g/dl (3.4-5.0); CALCIUM 7.8 mg/dL (8.5-10.1); MAGNESIUM 1.9 mg/dL (1.8-2.4)
[2023-07-29 07:59] LABS: PHOSPHOROUS 4.3 mg/dL (2.5-4.9)
[2023-07-29 08:01] LABS: BLOOD UREA NITROGEN 37.6 mg/dL (7-18); TOT PROT 6.7 g/dl (6.4-8.2)
[2023-07-29 08:05] LABS: BILIRUBIN,TOTAL 0.3 mg/dL (0.2-1); HEMOGLOBIN 6.8 GM/dL (11.7-16.9)
[2023-07-29] MEDS: LACTOBACILLUS ACIDOPHILUS 1 TABLET PO SCH (12:01)
[2023-07-29] MEDS: CASPOFUNGIN ACETATE 50 MG in SODIUM CHLORIDE 250 ML IVPB SCH (12:01)
[2023-07-29] MEDS: ZINC OXIDE 20% TOPICAL OINTMENT 30 GM TUBE TP SCH ×2 (12:02→22:06)
[2023-07-29] MEDS: LIDOCAINE 4% PATCH TP SCH (12:04)
[2023-07-29] MEDS ORDERED: INSULIN (NOVOLOG) ASPART 100 UNITS/ML 10ML VIAL ONE (16:40)
[2023-07-29 20:04] LABS: BASO % 0.7 % (0-2.0); EOS % 1.7 % (0-4.5); HEMATOCRIT 24.4 % (35.4-49); HEMOGLOBIN 8.2 GM/dL (11.7-16.9); LYMPH % 15.6 % (8-40); MCH 28.8 pg (25.7-33.7); MCHC 33.6 g/dl (32.0-35.9); MEAN CELL VOLUME 85.8 fl (80-96); MEAN PLT VOLUME 7.6 fl (7.5-11.1); MONO % 4.7 % (3.8-10.2); NEUT % 77.3 % (42.8-82.8); PLATELET COUNT 121 10^3/uL (134-434); RBC 2.84 M/mm3 (4.00-5.60); RDW 14.6 % (11.9-15.9); WHITE BLOOD COUNT 15.5 K/mm3 (4.0-10.0)
[2023-07-29] MEDS: ACETAMINOPHEN 500 MG TABLET (FP) PO PRN (22:03)
[2023-07-29] MEDS: LIDOCAINE PATCH REMOVAL MC SCH (22:05)
[2023-07-29] MEDS: MIRTAZAPINE 15 MG TABLET (FP) PO SCH (22:05)
[2023-07-30] MEDS: BANATROL PLUS POWDER PACKET PO SCH ×3 (06:16→22:09)
[2023-07-30] MEDS: INSULIN (LEVEMIR) 100 UNITS/ML UNITS SQ SCH ×2 (06:41→22:01)
[2023-07-30] MEDS: INSULIN SLIDING SCALE (NOVOLOG) 1 VIAL SQ SCH ×3 (06:41→17:32)
[2023-07-30] MEDS: HEPARIN NA (PORCINE) 5,000 UNITS/ML 1ML VIAL SQ SCH ×3 (06:50→22:00)
[2023-07-30 07:07] LABS: BASO % 0.8 % (0-2.0); EOS % 1.9 % (0-4.5); HEMATOCRIT 25.5 % (35.4-49); HEMOGLOBIN 8.5 GM/dL (11.7-16.9); LYMPH % 20.3 % (8-40); MCH 28.8 pg (25.7-33.7); MCHC 33.2 g/dl (32.0-35.9); MEAN CELL VOLUME 86.6 fl (80-96); MEAN PLT VOLUME 7.3 fl (7.5-11.1); MONO % 6.4 % (3.8-10.2); NEUT % 70.6 % (42.8-82.8); PLATELET COUNT 133 10^3/uL (134-434); RBC 2.95 M/mm3 (4.00-5.60); RDW 14.5 % (11.9-15.9); WHITE BLOOD COUNT 14.6 K/mm3 (4.0-10.0)
[2023-07-30 07:16] LABS: POTASSIUM 3.8 mmol/L (3.5-5.1)
[2023-07-30 07:18] LABS: CALCIUM 8.2 mg/dL (8.5-10.1)
[2023-07-30 07:19] LABS: ALBUMIN 1.6 g/dl (3.4-5.0); BLOOD UREA NITROGEN 24.1 mg/dL (7-18); MAGNESIUM 1.9 mg/dL (1.8-2.4)
[2023-07-30 07:22] LABS: CREATININE 3.9 mg/dL (0.55-1.3); PHOSPHOROUS 3.2 mg/dL (2.5-4.9)
[2023-07-30 07:23] LABS: BILIRUBIN,TOTAL 0.3 mg/dL (0.2-1); TOT PROT 7.3 g/dl (6.4-8.2)
[2023-07-30] MEDS: LIDOCAINE 4% PATCH TP SCH (10:21)
[2023-07-30] MEDS: LACTOBACILLUS ACIDOPHILUS 1 TABLET PO SCH (10:21)
[2023-07-30] MEDS: TAMSULOSIN HCL 0.4 MG CAP PO SCH (10:21)
[2023-07-30] MEDS: SEVELAMER CARBONATE 800 MG TAB (FP) PO SCH ×3 (10:21→17:15)
[2023-07-30] MEDS: ZINC OXIDE 20% TOPICAL OINTMENT 30 GM TUBE TP SCH ×2 (10:22→22:02)
[2023-07-30] MEDS: CASPOFUNGIN ACETATE 50 MG in SODIUM CHLORIDE 250 ML IVPB SCH (12:16)
[2023-07-30] MEDS: MIRTAZAPINE 15 MG TABLET (FP) PO SCH (22:01)
[2023-07-30] MEDS: LIDOCAINE PATCH REMOVAL MC SCH (22:02)
[2023-07-31] MEDS: BANATROL PLUS POWDER PACKET PO SCH ×3 (06:23→21:37)
[2023-07-31] MEDS: INSULIN (LEVEMIR) 100 UNITS/ML UNITS SQ SCH ×2 (06:37→21:38)
[2023-07-31] MEDS: HEPARIN NA (PORCINE) 5,000 UNITS/ML 1ML VIAL SQ SCH ×3 (06:37→21:37)
[2023-07-31] MEDS: INSULIN SLIDING SCALE (NOVOLOG) 1 VIAL SQ SCH ×3 (06:37→16:04)
[2023-07-31 08:01] LABS: BASO % 1.2 % (0-2.0); CHLORIDE 104 mmol/L (98-107); EOS % 2.5 % (0-4.5); HEMATOCRIT 24.5 % (35.4-49); LYMPH % 17.5 % (8-40); MCH 28.8 pg (25.7-33.7); MCHC 32.8 g/dl (32.0-35.9); MEAN CELL VOLUME 87.7 fl (80-96); MEAN PLT VOLUME 8.2 fl (7.5-11.1); MONO % 5.2 % (3.8-10.2); NEUT % 73.6 % (42.8-82.8); PLATELET COUNT 143 10^3/uL (134-434); POTASSIUM 3.8 mmol/L (3.5-5.1); RBC 2.79 M/mm3 (4.00-5.60); RDW 14.7 % (11.9-15.9); SODIUM 138 mmol/L (136-145); WHITE BLOOD COUNT 11.4 K/mm3 (4.0-10.0)
[2023-07-31 08:08] LABS: ALBUMIN 1.5 g/dl (3.4-5.0); ANION GAP 8 mmol/L (4-13); BLOOD UREA NITROGEN 29.2 mg/dL (7-18); CO2 26 mmol/L (21-32); CREATININE 4.9 mg/dL (0.55-1.3); PHOSPHOROUS 3.7 mg/dL (2.5-4.9); SGPT/ALT 17 U/L (13-61)
[2023-07-31 08:09] LABS: BILIRUBIN,TOTAL 0.2 mg/dL (0.2-1)
[2023-07-31 08:11] LABS: ALK PHOS 314 U/L (45-117); MAGNESIUM 1.9 mg/dL (1.8-2.4); SGOT/AST 19 U/L (15-37)
[2023-07-31 08:17] LABS: TOT PROT 7.2 g/dl (6.4-8.2)
[2023-07-31 08:26] LABS: GLUCOSE,RANDOM 412 mg/dL (74-106)
[2023-07-31] MEDS: SEVELAMER CARBONATE 800 MG TAB (FP) PO SCH ×3 (09:03→17:28)
[2023-07-31] MEDS: LIDOCAINE 4% PATCH TP SCH (09:03)
[2023-07-31] MEDS: LACTOBACILLUS ACIDOPHILUS 1 TABLET PO SCH (09:04)
[2023-07-31] MEDS: TAMSULOSIN HCL 0.4 MG CAP PO SCH (09:04)
[2023-07-31] MEDS: ZINC OXIDE 20% TOPICAL OINTMENT 30 GM TUBE TP SCH ×2 (09:49→23:22)
[2023-07-31] MEDS ORDERED: SODIUM CHLORIDE 250 ML IV PRN (11:15)
[2023-07-31] MEDS: CASPOFUNGIN ACETATE 50 MG in SODIUM CHLORIDE 250 ML IVPB SCH (12:06)
[2023-07-31] MEDS ORDERED: ACETAMINOPHEN 500 MG TABLET (FP) PO PRN ×2 (12:13→22:24)
[2023-07-31] MEDS: LIDOCAINE PATCH REMOVAL MC SCH (21:31)
[2023-07-31] MEDS: MIRTAZAPINE 15 MG TABLET (FP) PO SCH (21:38)
[2023-08-01] MEDS ORDERED: INSULIN (NOVOLOG) ASPART 100 UNITS/ML 10ML VIAL ONE (06:11)
[2023-08-01] MEDS: INSULIN SLIDING SCALE (NOVOLOG) 1 VIAL SQ SCH ×3 (06:14→16:46)
[2023-08-01] MEDS: BANATROL PLUS POWDER PACKET PO SCH ×3 (06:14→21:49)
[2023-08-01] MEDS: INSULIN (LEVEMIR) 100 UNITS/ML UNITS SQ SCH ×2 (06:16→21:48)
[2023-08-01] MEDS: HEPARIN NA (PORCINE) 5,000 UNITS/ML 1ML VIAL SQ SCH ×3 (06:16→21:45)
[2023-08-01] MEDS: SEVELAMER CARBONATE 800 MG TAB (FP) PO SCH ×3 (08:30→17:30)
[2023-08-01] MEDS: TAMSULOSIN HCL 0.4 MG CAP PO SCH (08:31)
[2023-08-01 09:05] LABS: BASO % 0.8 % (0-2.0); EOS % 2.4 % (0-4.5); HEMOGLOBIN 8.1 GM/dL (11.7-16.9); LYMPH % 19.5 % (8-40); MCH 28.3 pg (25.7-33.7); MCHC 32.4 g/dl (32.0-35.9); MEAN CELL VOLUME 87.4 fl (80-96); MEAN PLT VOLUME 7.7 fl (7.5-11.1); MONO % 6.7 % (3.8-10.2); NEUT % 70.6 % (42.8-82.8); PLATELET COUNT 164 10^3/uL (134-434); RBC 2.86 M/mm3 (4.00-5.60); RDW 14.4 % (11.9-15.9); WHITE BLOOD COUNT 11.3 K/mm3 (4.0-10.0)
[2023-08-01 09:24] LABS: POTASSIUM 3.7 mmol/L (3.5-5.1)
[2023-08-01 09:27] LABS: CALCIUM 8.3 mg/dL (8.5-10.1)
[2023-08-01 09:28] LABS: ALBUMIN 1.6 g/dl (3.4-5.0); MAGNESIUM 1.9 mg/dL (1.8-2.4)
[2023-08-01 09:31] LABS: CREATININE 4.3 mg/dL (0.55-1.3)
[2023-08-01 09:32] LABS: BILIRUBIN,TOTAL 0.3 mg/dL (0.2-1); TOT PROT 7.6 g/dl (6.4-8.2)
[2023-08-01] MEDS: LACTOBACILLUS ACIDOPHILUS 1 TABLET PO SCH (10:14)
[2023-08-01] MEDS: ZINC OXIDE 20% TOPICAL OINTMENT 30 GM TUBE TP SCH ×2 (10:14→21:49)
[2023-08-01] MEDS: LIDOCAINE 4% PATCH TP SCH (10:15)
[2023-08-01] MEDS: CASPOFUNGIN ACETATE 50 MG in SODIUM CHLORIDE 250 ML IVPB SCH (11:51)
[2023-08-01] MEDS: hydrALAZINE HCL 10 MG TABLET PO SCH ×2 (14:20→21:45)
[2023-08-01] MEDS ORDERED: SODIUM CHLORIDE 0.45% 1,000 ML IV SCH (16:00)
[2023-08-01] MEDS: MIRTAZAPINE 15 MG TABLET (FP) PO SCH (21:45)
[2023-08-01] MEDS: LIDOCAINE PATCH REMOVAL MC SCH (21:54)
[2023-08-02] MEDS: hydrALAZINE HCL 10 MG TABLET PO SCH ×3 (06:57→21:26)
[2023-08-02] MEDS: BANATROL PLUS POWDER PACKET PO SCH ×3 (06:58→21:27)
[2023-08-02] MEDS: HEPARIN NA (PORCINE) 5,000 UNITS/ML 1ML VIAL SQ SCH ×3 (06:58→21:26)
[2023-08-02] MEDS: INSULIN (LEVEMIR) 100 UNITS/ML UNITS SQ SCH ×2 (08:13→21:29)
[2023-08-02] MEDS: INSULIN SLIDING SCALE (NOVOLOG) 1 VIAL SQ SCH ×3 (08:14→16:55)
[2023-08-02] MEDS: SEVELAMER CARBONATE 800 MG TAB (FP) PO SCH ×3 (08:51→17:22)
[2023-08-02] MEDS: TAMSULOSIN HCL 0.4 MG CAP PO SCH (08:51)
[2023-08-02] MEDS: ZINC OXIDE 20% TOPICAL OINTMENT 30 GM TUBE TP SCH ×2 (10:03→21:33)
[2023-08-02] MEDS: LIDOCAINE 4% PATCH TP SCH (10:07)
[2023-08-02 10:52] LABS: HEMATOCRIT 25.2 % (35.4-49); HEMOGLOBIN 8.5 GM/dL (11.7-16.9); MCH 28.9 pg (25.7-33.7); MCHC 33.7 g/dl (32.0-35.9); MEAN CELL VOLUME 85.8 fl (80-96); MEAN PLT VOLUME 7.8 fl (7.5-11.1); PLATELET COUNT 171 10^3/uL (134-434); RBC 2.94 M/mm3 (4.00-5.60); RDW 14.7 % (11.9-15.9); WHITE BLOOD COUNT 10.9 K/mm3 (4.0-10.0)
[2023-08-02 10:54] LABS: POTASSIUM 3.9 mmol/L (3.5-5.1)
[2023-08-02 11:00] LABS: ALBUMIN 1.7 g/dl (3.4-5.0); BLOOD UREA NITROGEN 27.9 mg/dL (7-18); CALCIUM 8.6 mg/dL (8.5-10.1); MAGNESIUM 1.9 mg/dL (1.8-2.4)
[2023-08-02 11:03] LABS: PHOSPHOROUS 3.2 mg/dL (2.5-4.9)
[2023-08-02 11:04] LABS: CREATININE 4.8 mg/dL (0.55-1.3)
[2023-08-02 11:05] LABS: BILIRUBIN,TOTAL 0.4 mg/dL (0.2-1); TOT PROT 7.8 g/dl (6.4-8.2)
[2023-08-02] MEDS: LACTOBACILLUS ACIDOPHILUS 1 TABLET PO SCH (11:26)
[2023-08-02] MEDS ORDERED: SODIUM CHLORIDE 250 ML IV PRN (12:15)
[2023-08-02] MEDS: CASPOFUNGIN ACETATE 50 MG in SODIUM CHLORIDE 250 ML IVPB SCH (13:00)
[2023-08-02] MEDS: MIRTAZAPINE 15 MG TABLET (FP) PO SCH (21:26)
[2023-08-02] MEDS: LIDOCAINE PATCH REMOVAL MC SCH (21:27)
[2023-08-03] MEDS: hydrALAZINE HCL 10 MG TABLET PO SCH ×3 (06:23→22:55)
[2023-08-03] MEDS: BANATROL PLUS POWDER PACKET PO SCH ×4 (06:24→22:55)
[2023-08-03] MEDS: HEPARIN NA (PORCINE) 5,000 UNITS/ML 1ML VIAL SQ SCH ×3 (06:24→22:56)
[2023-08-03] MEDS: INSULIN (LEVEMIR) 100 UNITS/ML UNITS SQ SCH ×2 (06:28→22:59)
[2023-08-03] MEDS: INSULIN SLIDING SCALE (NOVOLOG) 1 VIAL SQ SCH ×3 (06:28→16:54)
[2023-08-03 08:55] LABS: HEMATOCRIT 23.4 % (35.4-49); HEMOGLOBIN 7.8 GM/dL (11.7-16.9); MCH 29.2 pg (25.7-33.7); MCHC 33.5 g/dl (32.0-35.9); MEAN CELL VOLUME 87.1 fl (80-96); MEAN PLT VOLUME 7.7 fl (7.5-11.1); PLATELET COUNT 176 10^3/uL (134-434); RBC 2.68 M/mm3 (4.00-5.60); RDW 14.6 % (11.9-15.9); WHITE BLOOD COUNT 9.6 K/mm3 (4.0-10.0)
[2023-08-03 09:30] LABS: POTASSIUM 3.7 mmol/L (3.5-5.1)
[2023-08-03] MEDS: TAMSULOSIN HCL 0.4 MG CAP PO SCH (09:32)
[2023-08-03] MEDS: ZINC OXIDE 20% TOPICAL OINTMENT 30 GM TUBE TP SCH ×2 (09:32→22:56)
[2023-08-03] MEDS: LACTOBACILLUS ACIDOPHILUS 1 TABLET PO SCH (09:32)
[2023-08-03] MEDS: LIDOCAINE 4% PATCH TP SCH (09:32)
[2023-08-03] MEDS ORDERED: INSULIN (LEVEMIR) 100 UNITS/ML UNITS SQ ONE (09:54)
[2023-08-03 10:25] LABS: CALCIUM 8.6 mg/dL (8.5-10.1)
[2023-08-03 10:29] LABS: CREATININE 3.8 mg/dL (0.55-1.3)
[2023-08-03] MEDS: CASPOFUNGIN ACETATE 50 MG in SODIUM CHLORIDE 250 ML IVPB SCH (12:03)
[2023-08-03] MEDS: SEVELAMER CARBONATE 800 MG TAB (FP) PO SCH ×3 (12:04→16:55)
[2023-08-03] MEDS: MIRTAZAPINE 15 MG TABLET (FP) PO SCH (22:55)
[2023-08-03] MEDS: LIDOCAINE PATCH REMOVAL MC SCH (22:56)
[2023-08-04] MEDS: INSULIN (LEVEMIR) 100 UNITS/ML UNITS SQ SCH ×2 (07:11→21:33)
[2023-08-04] MEDS: hydrALAZINE HCL 10 MG TABLET PO SCH ×3 (07:11→21:36)
[2023-08-04] MEDS: INSULIN SLIDING SCALE (NOVOLOG) 1 VIAL SQ SCH ×3 (07:11→16:48)
[2023-08-04] MEDS: BANATROL PLUS POWDER PACKET PO SCH ×3 (07:11→21:17)
[2023-08-04] MEDS: HEPARIN NA (PORCINE) 5,000 UNITS/ML 1ML VIAL SQ SCH ×3 (07:12→21:34)
[2023-08-04] MEDS: SEVELAMER CARBONATE 800 MG TAB (FP) PO SCH ×3 (07:58→16:59)
[2023-08-04] MEDS: AMINO ACIDS/PROTEIN HYDROLYS 30 ML LIQUID.PKT PO SCH (07:58)
[2023-08-04] MEDS: TAMSULOSIN HCL 0.4 MG CAP PO SCH (07:58)
[2023-08-04 09:25] LABS: HEMATOCRIT 24.2 % (35.4-49); MCH 28.9 pg (25.7-33.7); MEAN CELL VOLUME 87.6 fl (80-96); PLATELET COUNT 209 10^3/uL (134-434); RBC 2.76 M/mm3 (4.00-5.60); RDW 14.7 % (11.9-15.9); WHITE BLOOD COUNT 9.5 K/mm3 (4.0-10.0)
[2023-08-04] MEDS: LIDOCAINE 4% PATCH TP SCH (09:39)
[2023-08-04] MEDS: LACTOBACILLUS ACIDOPHILUS 1 TABLET PO SCH (09:39)
[2023-08-04] MEDS: ZINC OXIDE 20% TOPICAL OINTMENT 30 GM TUBE TP SCH ×2 (09:39→21:36)
[2023-08-04 09:42] LABS: POTASSIUM 3.6 mmol/L (3.5-5.1)
[2023-08-04 09:58] LABS: CALCIUM 8.6 mg/dL (8.5-10.1)
[2023-08-04 10:00] LABS: BLOOD UREA NITROGEN 25.4 mg/dL (7-18)
[2023-08-04 10:03] LABS: CREATININE 4.6 mg/dL (0.55-1.3)
[2023-08-04] MEDS: CASPOFUNGIN ACETATE 50 MG in SODIUM CHLORIDE 250 ML IVPB SCH (11:39)
[2023-08-04] MEDS ORDERED: INSULIN (NOVOLOG) ASPART 100 UNITS/ML 10ML VIAL ONE (16:29)
[2023-08-04] MEDS: LIDOCAINE PATCH REMOVAL MC SCH (21:17)
[2023-08-04] MEDS: MIRTAZAPINE 15 MG TABLET (FP) PO SCH (21:35)
[2023-08-05] MEDS: BANATROL PLUS POWDER PACKET PO SCH ×3 (07:09→22:26)
[2023-08-05] MEDS: HEPARIN NA (PORCINE) 5,000 UNITS/ML 1ML VIAL SQ SCH ×3 (07:09→22:25)
[2023-08-05] MEDS: hydrALAZINE HCL 10 MG TABLET PO SCH ×3 (07:09→22:25)
[2023-08-05] MEDS: INSULIN SLIDING SCALE (NOVOLOG) 1 VIAL SQ SCH ×3 (07:11→16:17)
[2023-08-05] MEDS: INSULIN (LEVEMIR) 100 UNITS/ML UNITS SQ SCH ×2 (07:11→22:27)
[2023-08-05] MEDS: TAMSULOSIN HCL 0.4 MG CAP PO SCH (09:00)
[2023-08-05] MEDS: AMINO ACIDS/PROTEIN HYDROLYS 30 ML LIQUID.PKT PO SCH (09:00)
[2023-08-05] MEDS: SEVELAMER CARBONATE 800 MG TAB (FP) PO SCH ×3 (09:00→17:05)
[2023-08-05] MEDS: LIDOCAINE 4% PATCH TP SCH (10:25)
[2023-08-05] MEDS: LACTOBACILLUS ACIDOPHILUS 1 TABLET PO SCH (10:25)
[2023-08-05] MEDS: ZINC OXIDE 20% TOPICAL OINTMENT 30 GM TUBE TP SCH ×2 (10:30→22:29)
[2023-08-05] MEDS: CASPOFUNGIN ACETATE 50 MG in SODIUM CHLORIDE 250 ML IVPB SCH (11:37)
[2023-08-05] MEDS: SODIUM CHLORIDE 0.45% 1,000 ML IV SCH (14:15)
[2023-08-05] MEDS: MIRTAZAPINE 15 MG TABLET (FP) PO SCH (22:25)
[2023-08-05] MEDS: LIDOCAINE PATCH REMOVAL MC SCH (22:30)
[2023-08-06] MEDS: hydrALAZINE HCL 10 MG TABLET PO SCH ×3 (06:35→21:20)
[2023-08-06] MEDS: HEPARIN NA (PORCINE) 5,000 UNITS/ML 1ML VIAL SQ SCH ×3 (06:35→21:20)
[2023-08-06] MEDS: BANATROL PLUS POWDER PACKET PO SCH ×4 (06:36→21:20)
[2023-08-06] MEDS: INSULIN (LEVEMIR) 100 UNITS/ML UNITS SQ SCH ×2 (06:37→21:27)
[2023-08-06] MEDS: INSULIN SLIDING SCALE (NOVOLOG) 1 VIAL SQ SCH ×3 (06:39→16:50)
[2023-08-06] MEDS: TAMSULOSIN HCL 0.4 MG CAP PO SCH (08:59)
[2023-08-06] MEDS: LACTOBACILLUS ACIDOPHILUS 1 TABLET PO SCH (09:00)
[2023-08-06] MEDS: LIDOCAINE 4% PATCH TP SCH (09:00)
[2023-08-06] MEDS: SEVELAMER CARBONATE 800 MG TAB (FP) PO SCH ×3 (09:00→17:25)
[2023-08-06] MEDS: AMINO ACIDS/PROTEIN HYDROLYS 30 ML LIQUID.PKT PO SCH (09:00)
[2023-08-06] MEDS: ZINC OXIDE 20% TOPICAL OINTMENT 30 GM TUBE TP SCH ×2 (09:00→21:31)
[2023-08-06 09:22] LABS: HEMATOCRIT 23.2 % (35.4-49); HEMOGLOBIN 8.1 GM/dL (11.7-16.9); MCH 29.8 pg (25.7-33.7); MEAN CELL VOLUME 85.1 fl (80-96); MEAN PLT VOLUME 8.1 fl (7.5-11.1); PLATELET COUNT 244 10^3/uL (134-434); RBC 2.73 M/mm3 (4.00-5.60); RDW 14.5 % (11.9-15.9); WHITE BLOOD COUNT 8.2 K/mm3 (4.0-10.0)
[2023-08-06 09:42] LABS: POTASSIUM 3.9 mmol/L (3.5-5.1)
[2023-08-06 09:54] LABS: CALCIUM 8.8 mg/dL (8.5-10.1)
[2023-08-06 09:56] LABS: BLOOD UREA NITROGEN 33.3 mg/dL (7-18)
[2023-08-06 09:58] LABS: BILIRUBIN,TOTAL 0.3 mg/dL (0.2-1); CREATININE 4.2 mg/dL (0.55-1.3)
[2023-08-06 09:59] LABS: TOT PROT 8.5 g/dl (6.4-8.2)
[2023-08-06] MEDS: SODIUM CHLORIDE 0.45% 1,000 ML IV SCH ×2 (10:17→21:20)
[2023-08-06] MEDS ORDERED: INSULIN (NOVOLOG) ASPART 100 UNITS/ML 10ML VIAL ONE (10:43)
[2023-08-06 14:58] VITALS: RESP 18; TEMP 98.1
[2023-08-06] MEDS: MIRTAZAPINE 15 MG TABLET (FP) PO SCH (21:20)
[2023-08-06] MEDS: LIDOCAINE PATCH REMOVAL MC SCH (21:21)
[2023-08-07 05:35] VITALS: BP 141/88; PULSE 116
[2023-08-07] MEDS: hydrALAZINE HCL 10 MG TABLET PO SCH ×2 (06:21→13:51)
[2023-08-07] MEDS: HEPARIN NA (PORCINE) 5,000 UNITS/ML 1ML VIAL SQ SCH ×2 (06:21→13:51)
[2023-08-07] MEDS: BANATROL PLUS POWDER PACKET PO SCH ×2 (06:21→13:51)
[2023-08-07] MEDS: INSULIN (LEVEMIR) 100 UNITS/ML UNITS SQ SCH (06:23)
[2023-08-07] MEDS: INSULIN SLIDING SCALE (NOVOLOG) 1 VIAL SQ SCH ×2 (06:27→12:00)
[2023-08-07] MEDS: AMINO ACIDS/PROTEIN HYDROLYS 30 ML LIQUID.PKT PO SCH (10:08)
[2023-08-07] MEDS: LACTOBACILLUS ACIDOPHILUS 1 TABLET PO SCH (10:11)
[2023-08-07] MEDS: TAMSULOSIN HCL 0.4 MG CAP PO SCH (10:11)
[2023-08-07] MEDS: LIDOCAINE 4% PATCH TP SCH (10:11)
[2023-08-07] MEDS: SEVELAMER CARBONATE 800 MG TAB (FP) PO SCH ×2 (10:11→12:01)
[2023-08-07] MEDS: ZINC OXIDE 20% TOPICAL OINTMENT 30 GM TUBE TP SCH (10:12)
[2023-08-07 10:37] LABS: POTASSIUM 4.1 mmol/L (3.5-5.1)
[2023-08-07 11:02] LABS: BLOOD UREA NITROGEN 35.7 mg/dL (7-18); CREATININE 3.9 mg/dL (0.55-1.3); PHOSPHOROUS 4.2 mg/dL (2.5-4.9)
[2023-08-07 11:03] LABS: BILIRUBIN,TOTAL 0.2 mg/dL (0.2-1); TOT PROT 8.9 g/dl (6.4-8.2)
[2023-08-07 11:04] LABS: CALCIUM 9.4 mg/dL (8.5-10.1)
== END 2023-08-07 15:33 | disposition home or self-care (01) | DRG 710 ==
LOC: JER 16:12 → JERBED 23:51 → J4W 06-25 14:52 → J4S 06-28 10:52 → J4W 06-28 10:53 → J6S 07-31 11:24
PROVIDERS: ADMIT Internal Medicine; ATTEND Internal Medicine
PROC: 0T9780Z Drainage of Left Ureter with Drainage Device, Via Natural or Artificial Opening Endoscopic (ICD-10-PCS; 2023-06-30)
PROC: 30233N1 Transfusion of Nonautologous Red Blood Cells into Peripheral Vein, Percutaneous Approach (ICD-10-PCS; 2023-07-05)
PROC: 0T9780Z Drainage of Left Ureter with Drainage Device, Via Natural or Artificial Opening Endoscopic (ICD-10-PCS; 2023-07-10)
PROC: BT1FZZZ Fluoroscopy of Left Kidney, Ureter and Bladder (ICD-10-PCS; 2023-07-10)
PROC: 0T9130Z Drainage of Left Kidney with Drainage Device, Percutaneous Approach (ICD-10-PCS; 2023-07-12)
PROC: 05HM33Z Insertion of Infusion Device into Right Internal Jugular Vein, Percutaneous Approach (ICD-10-PCS; 2023-07-20)
PROC: B543ZZA Ultrasonography of Right Jugular Veins, Guidance (ICD-10-PCS; 2023-07-20)
PROC: 5A1D70Z Performance of Urinary Filtration, Intermittent, Less than 6 Hours Per Day (ICD-10-PCS; 2023-07-24)
PROC: 5A1D70Z Performance of Urinary Filtration, Intermittent, Less than 6 Hours Per Day (ICD-10-PCS; 2023-07-26)
PROC: 0TP980Z Removal of Drainage Device from Ureter, Via Natural or Artificial Opening Endoscopic (ICD-10-PCS; principal; 2023-07-26 11:45)
PROC: 5A1D70Z Performance of Urinary Filtration, Intermittent, Less than 6 Hours Per Day (ICD-10-PCS; 2023-07-29)
PROC: 5A1D70Z Performance of Urinary Filtration, Intermittent, Less than 6 Hours Per Day (ICD-10-PCS; 2023-07-31)
DX: A41.89 Other specified sepsis (principal); Q60.0 Renal agenesis, unilateral; N17.9 Acute kidney failure, unspecified; E83.42 Hypomagnesemia; E87.6 Hypokalemia; E86.1 Hypovolemia; E86.0 Dehydration; R50.9 Fever, unspecified; E11.65 Type 2 diabetes mellitus with hyperglycemia; R31.9 Hematuria, unspecified; B96.1 Klebsiella pneumoniae [K. pneumoniae] as the cause of diseases classified elsewhere; G71.09 Other specified muscular dystrophies; E83.39 Other disorders of phosphorus metabolism; E87.1 Hypo-osmolality and hyponatremia; N13.6 Pyonephrosis; E11.22 Type 2 diabetes mellitus with diabetic chronic kidney disease; N18.9 Chronic kidney disease, unspecified; A04.72 Enterocolitis due to Clostridium difficile, not specified as recurrent; R33.9 Retention of urine, unspecified; D72.829 Elevated white blood cell count, unspecified; R19.5 Other fecal abnormalities; I31.39 Other pericardial effusion (noninflammatory); J90 Pleural effusion, not elsewhere classified; B49 Unspecified mycosis; F32.A Depression, unspecified; E44.0 Moderate protein-calorie malnutrition; Z68.1 Body mass index [BMI] 19.9 or less, adult
CPT/HCPCS: 36415; 36430; 50432; 71045-TC-FY; 74176-TC; 74181-TC; 76000-TC-FY; 76775-TC; 78708-TC; 80048; 80053; 81003; 82010; 82024; 82248; 82272; 82438; 82533; 82550; 82570; 82607; 82728; 82746; 82803; 82947; 82962; 82977; 83010; 83036; 83516; 83520; 83540; 83550; 83615; 83735; 84100; 84295; 84300; 84302; 84484; 84999; 85025; 85027; 85045; 85610; 85651; 86038; 86140; 86160; 86225; 86256; 86704; 86803; 86850; 86900; 86901; 86922; 87040; 87070; 87075; 87077; 87086; 87102; 87106; 87116; 87186; 87205; 87206; 87209; 87210; 87324; 87340; 87389; 87449; 87517; 88300-TC; 93005; 93010; 93306-TC; 94760; 97116-GP; 97163-GP; 99285-25; A9562; C1729; C1769; C2617; J0637; J0834; J1100; J1644; P9058

== ENCOUNTER 2023-08-22 22:10 | Emergency (ER) | payer OTHER ==
[2023-08-22 22:56] VITALS: TEMP 98.3; BMI 16.4
[2023-08-22] MEDS ORDERED: ASPIRIN 81 MG CHEWABLE TABLETS PO ONE (23:58)
[2023-08-22] MEDS ORDERED: SODIUM CHLORIDE 0.9% 500 ML INFUS.BAG IV ONE (23:59)
[2023-08-23] MEDS ORDERED: CLOPIDOGREL BISULFATE 300 MG TABLET PO ONE (00:09)
[2023-08-23] MEDS ORDERED: HEPARIN NA (PORCINE) 5,000 UNITS/ML 1ML VIAL IVPUSH ONE (00:10)
[2023-08-23] MEDS ORDERED: HEPARIN NA (PORCINE) 5,000 UNITS/ML 1ML VIAL IVPUSH PRN ×2 (00:10)
[2023-08-23] MEDS ORDERED: HEPARIN - 25,000 UNIT in SODIUM CHLORIDE 495 ML IV SCH (00:15)
[2023-08-23] MEDS ORDERED: ASPIRIN 325 MG TABLET ONE (00:21)
[2023-08-23] MEDS ORDERED: HEPARIN INFUSION - 25,000 UNITS/500 ML INFUS.BAG IVPB ONE (00:21)
[2023-08-23] MEDS ORDERED: CLOPIDOGREL BISULFATE 300 MG TABLET ONE (00:21)
[2023-08-23] MEDS ORDERED: HEPARIN NA (PORCINE) 5,000 UNITS/ML 1ML VIAL ONE (00:21)
[2023-08-23 00:26] LABS: BASO % 0.6 % (0-2.0); EOS % 0.1 % (0-4.5); HEMATOCRIT 28.8 % (35.4-49); HEMOGLOBIN 9.7 GM/dL (11.7-16.9); MCH 28.9 pg (25.7-33.7); MCHC 33.8 g/dl (32.0-35.9); MEAN CELL VOLUME 85.6 fl (80-96); MEAN PLT VOLUME 9.3 fl (7.5-11.1); MONO % 9.4 % (3.8-10.2); NEUT % 83.9 % (42.8-82.8); PLATELET COUNT 284 10^3/uL (134-434); RBC 3.37 M/mm3 (4.00-5.60); RDW 14.1 % (11.9-15.9); WHITE BLOOD COUNT 13.8 K/mm3 (4.0-10.0)
[2023-08-23 00:32] LABS: INR 1.28 (0.83-1.09); PROTHROMBIN TIME (PATIENT) 14.8 SEC (9.7-13.0)
[2023-08-23 00:35] LABS: ACTIVATED PTT 29.9 SECONDS (25.2-36.5)
[2023-08-23 00:38] LABS: EPI CELLS >36 /uL (0-25.1); HYALINE CASTS 406 /uL (0-3.1); URINE APPEARANCE Turbid; URINE BACTERIA 1845 /uL (0-1359); URINE BILIRUBIN Negative (NEGATIVE); URINE COLOR Yellow; URINE GLUCOSE (UA) 500 mg/dl (NEGATIVE); URINE KETONE Trace (NEGATIVE); URINE LEUK ESTERASE Large (NEGATIVE); URINE NITRITE Negative (NEGATIVE); URINE PROTEIN 300 (NEGATIVE); URINE UROBILINOGEN 0.2 mg/dL (0.2-1.0); URINE WBC 19667 /uL (0-25.8)
[2023-08-23 00:44] VITALS: BP 106/68; PULSE 109; RESP 24
[2023-08-23 00:44] LABS: CHLORIDE 84 mmol/L (98-107); POTASSIUM 4.4 mmol/L (3.5-5.1)
[2023-08-23 00:48] LABS: CALCIUM 9.4 mg/dL (8.5-10.1)
[2023-08-23 00:49] LABS: ALBUMIN 2.2 g/dl (3.4-5.0); CO2 14 mmol/L (21-32)
[2023-08-23 00:51] LABS: CREATININE 5.3 mg/dL (0.55-1.3); SGOT/AST 3 U/L (15-37)
[2023-08-23 00:53] LABS: BILIRUBIN,TOTAL 0.6 mg/dL (0.2-1); TOT PROT 9.6 g/dl (6.4-8.2)
[2023-08-23 00:55] LABS: ALK PHOS 189 U/L (45-117)
[2023-08-23 01:25] LABS: ANION GAP 19 mmol/L (4-13); GLUCOSE,RANDOM 748 mg/dL (74-106); SGPT/ALT 7 U/L (13-61); SODIUM 117 mmol/L (136-145)
[2023-08-23 06:58] LABS: YEAST NONE SEEN (NEGATIVE)
== END 2023-08-23 01:01 | disposition short-term general hospital (02) ==
LOC: JER 22:10
PROC: 3E033GC Introduction of Other Therapeutic Substance into Peripheral Vein, Percutaneous Approach (ICD-10-PCS; principal; 2023-08-23)
DX: I21.3 ST elevation (STEMI) myocardial infarction of unspecified site (principal); Z20.822 Contact with and (suspected) exposure to COVID-19
CPT/HCPCS: 0241U-QW; 36415; 71045-TC-FY; 80053; 81003; 84484; 85025; 85610; 85730; 86850; 86900; 86901; 87086; 87186; 93005; 93010; 96374; 99285-25; J1644

== ENCOUNTER 2025-06-25 13:19 | Inpatient (IN) | payer OTHER ==
[2025-06-25 15:40] LABS: ABSOLUTE IMMATURE GRANULOCYTES 0.03 x10^3/uL (0.0-0.031); BASOPHILS # 0.05 x10^3/uL (0.01-0.08); EOSINOPHIL % 2.6 % (0.8-7.0); EOSINOPHILS # 0.22 x10^3/uL (0.04-0.54); MCHC 30.4 g/dl (32.3-36.5); MEAN CELL VOLUME 97.5 fl (79.0-92.2); MEAN PLT VOLUME 9.8 fl (9.4-12.4); MONOCYTE # 0.42 x10^3/uL (0.30-0.82); MONOCYTE % 5.0 % (5.3-12.2); RDW 14.6 % (12.0-15.6)
[2025-06-25 15:51] LABS: INR 1.08 (0.83-1.09); PROTHROMBIN TIME (PATIENT) 11.9 SEC (9.7-13.0)
[2025-06-25 15:54] LABS: ACTIVATED PTT 37.2 SECONDS (25.2-36.5)
[2025-06-25 15:55] LABS: GLUCOSE,RANDOM 150 mg/dL (74-106)
[2025-06-25 15:56] LABS: TOT PROT 7.6 g/dl (6.4-8.2)
[2025-06-25 15:57] LABS: CO2 15 mmol/L (21-32)
[2025-06-25 15:58] LABS: ALK PHOS 172 U/L (40-150)
[2025-06-25 16:01] LABS: CREATININE 7.77 mg/dL (0.55-1.3); SGOT/AST 17 U/L (5-34); SGPT/ALT < 6 U/L (0-55)
[2025-06-25] MEDS ORDERED: ALBUTEROL SO4 0.083% IH SOL 2.5 MG/3 ML VIAL.NEB. NEB ONE ×2 (16:13→17:05)
[2025-06-25] MEDS ORDERED: ALBUTEROL SO4 0.083% IH SOL 2.5 MG/3 ML VIAL.NEB. NEB SCH (16:15)
[2025-06-25 16:22] LABS: HCV DIAGNOSTIC IN-HOUSE W/RFLX NON-REACTIVE (NONREACTIVE); HIV INTERPRETATION NEGATIVE (NEGATIVE)
[2025-06-25] MEDS ORDERED: SODIUM CHLORIDE 250 ML IV PRN (16:25)
[2025-06-25] MEDS ORDERED: SODIUM ZIRCONIUM CYCLOSILICATE (LOKELMA) 10 GM PACKET ONE (17:05)
[2025-06-25] MEDS: EPOETIN ALFA-EPBX 10,000 UNIT/ML VIAL IVPUSH ONE (19:31)
[2025-06-25] MEDS: HEPARIN NA (PORCINE) 5,000 UNITS/ML 1ML VIAL IVPUSH ONE (19:31)
[2025-06-25] MEDS: INSULIN ASPART SLIDING SCALE (NOVOLOG) 1 VIAL SQ SCH (21:57)
[2025-06-25] MEDS: SODIUM ZIRCONIUM CYCLOSILICATE (LOKELMA) 5 GM PACKET PO SCH (21:57)
[2025-06-25] MEDS: HEPARIN NA (PORCINE) 5,000 UNITS/ML 1ML VIAL SQ SCH (21:58)
[2025-06-26 01:30] VITALS: BMI 15.5
[2025-06-26 08:31] LABS: ABSOLUTE IMMATURE GRANULOCYTES 0.02 x10^3/uL (0.0-0.031); BASOPHILS # 0.03 x10^3/uL (0.01-0.08); EOSINOPHIL % 2.0 % (0.8-7.0); EOSINOPHILS # 0.13 x10^3/uL (0.04-0.54); MCHC 30.6 g/dl (32.3-36.5); MEAN CELL VOLUME 96.8 fl (79.0-92.2); MEAN PLT VOLUME 10.8 fl (9.4-12.4); MONOCYTE # 0.45 x10^3/uL (0.30-0.82); MONOCYTE % 6.8 % (5.3-12.2); RDW 14.7 % (12.0-15.6)
[2025-06-26 08:51] LABS: GLUCOSE,RANDOM 311 mg/dL (74-106); TOT PROT 6.8 g/dl (6.4-8.2)
[2025-06-26 08:52] LABS: CO2 25 mmol/L (21-32)
[2025-06-26 08:54] LABS: ALK PHOS 178 U/L (40-150)
[2025-06-26 08:57] LABS: CREATININE 4.73 mg/dL (0.55-1.3); SGOT/AST 32 U/L (5-34); SGPT/ALT < 6 U/L (0-55)
[2025-06-27] MEDS: NIFEdipine E.R. 30 MG TABLET PO SCH (14:28)
[2025-06-28 08:47] LABS: ABSOLUTE IMMATURE GRANULOCYTES 0.03 x10^3/uL (0.0-0.031); BASOPHILS # 0.05 x10^3/uL (0.01-0.08); EOSINOPHIL % 2.1 % (0.8-7.0); EOSINOPHILS # 0.18 x10^3/uL (0.04-0.54); MCHC 29.7 g/dl (32.3-36.5); MEAN CELL VOLUME 96.3 fl (79.0-92.2); MEAN PLT VOLUME 10.8 fl (9.4-12.4); MONOCYTE # 0.76 x10^3/uL (0.30-0.82); MONOCYTE % 8.7 % (5.3-12.2); RDW 14.6 % (12.0-15.6)
[2025-06-28] MEDS ORDERED: SODIUM CHLORIDE 250 ML IV PRN (09:13)
[2025-06-28 10:26] LABS: ALK PHOS 152 U/L (40-150); CO2 19 mmol/L (21-32); CREATININE 6.75 mg/dL (0.55-1.3); GLUCOSE,RANDOM 101 mg/dL (74-106); SGOT/AST 17 U/L (5-34); SGPT/ALT < 6 U/L (0-55); TOT PROT 6.6 g/dl (6.4-8.2)
[2025-06-28] MEDS: EPOETIN ALFA-EPBX 4,000 UNIT/ML VIAL IVPUSH ONE (11:34)
[2025-06-28] MEDS: CEFAZOLIN SODIUM 2 GM in DEXTROSE 5%-WATER 100 ML IVPB SCH ×2 (15:11→20:24)
[2025-06-28] MEDS: SEVELAMER CARBONATE 800 MG TAB (FP) PO SCH (17:43)
[2025-06-28] MEDS: METOPROLOL TARTRATE 50 MG TABLET (FP) PO SCH (21:50)
[2025-06-29 07:46] LABS: ABSOLUTE IMMATURE GRANULOCYTES 0.04 x10^3/uL (0.0-0.031); BASOPHILS # 0.03 x10^3/uL (0.01-0.08); EOSINOPHIL % 2.1 % (0.8-7.0); EOSINOPHILS # 0.14 x10^3/uL (0.04-0.54); MCHC 29.8 g/dl (32.3-36.5); MEAN CELL VOLUME 98.1 fl (79.0-92.2); MEAN PLT VOLUME 11.4 fl (9.4-12.4); MONOCYTE # 0.55 x10^3/uL (0.30-0.82); MONOCYTE % 8.3 % (5.3-12.2); RDW 14.6 % (12.0-15.6)
[2025-06-29 08:13] LABS: GLUCOSE,RANDOM 228 mg/dL (74-106); TOT PROT 7.1 g/dl (6.4-8.2)
[2025-06-29 08:15] LABS: CO2 23 mmol/L (21-32)
[2025-06-29 08:16] LABS: ALK PHOS 153 U/L (40-150)
[2025-06-29 08:19] LABS: CREATININE 4.25 mg/dL (0.55-1.3); SGOT/AST 17 U/L (5-34); SGPT/ALT < 6 U/L (0-55)
[2025-06-30 09:43] LABS: MCHC 29.4 g/dl (32.3-36.5); MEAN CELL VOLUME 98.5 fl (79.0-92.2); MEAN PLT VOLUME 10.5 fl (9.4-12.4); RDW 15.2 % (12.0-15.6)
[2025-06-30] MEDS ORDERED: SODIUM CHLORIDE 250 ML IV PRN (10:00)
[2025-06-30 10:07] LABS: GLUCOSE,RANDOM 189.0 mg/dL (74-106); TOT PROT 7.1 g/dl (6.4-8.2)
[2025-06-30 10:09] LABS: CO2 22.0 mmol/L (21-32)
[2025-06-30 10:10] LABS: ALK PHOS 162.0 U/L (40-150)
[2025-06-30 10:13] LABS: CREATININE 4.94 mg/dL (0.55-1.3); SGOT/AST 22.0 U/L (5-34); SGPT/ALT 8.0 U/L (0-55)
[2025-06-30] MEDS: EPOETIN ALFA-EPBX 10,000 UNIT/ML VIAL IVPUSH ONE (11:32)
[2025-07-02 10:12] LABS: MCHC 28.7 g/dl (32.3-36.5); MEAN CELL VOLUME 99.6 fl (79.0-92.2); MEAN PLT VOLUME 10.3 fl (9.4-12.4); RDW 15.8 % (12.0-15.6)
[2025-07-02] MEDS ORDERED: SODIUM CHLORIDE 250 ML IV PRN (11:00)
[2025-07-02 11:21] LABS: GLUCOSE,RANDOM 173.0 mg/dL (74-106); TOT PROT 6.7 g/dl (6.4-8.2)
[2025-07-02] MEDS: EPOETIN ALFA-EPBX 10,000 UNIT/ML VIAL IVPUSH ONE (11:21)
[2025-07-02 11:22] LABS: CO2 24.0 mmol/L (21-32)
[2025-07-02 11:24] LABS: ALK PHOS 148.0 U/L (40-150)
[2025-07-02 11:27] LABS: CREATININE 4.57 mg/dL (0.55-1.3); SGOT/AST 22.0 U/L (5-34); SGPT/ALT 8.0 U/L (0-55)
[2025-07-02] MEDS: CEFAZOLIN SODIUM 3 GM in DEXTROSE 5%-WATER 100 ML IVPB ONE (14:21)
[2025-07-03 14:16] LABS: GLUCOSE,RANDOM 168.0 mg/dL (74-106)
[2025-07-03 14:18] LABS: CO2 23.0 mmol/L (21-32)
[2025-07-03 14:22] LABS: CREATININE 4.01 mg/dL (0.55-1.3)
[2025-07-04] MEDS ORDERED: SODIUM CHLORIDE 250 ML IV PRN (07:15)
[2025-07-04 09:17] LABS: MEAN CELL VOLUME 99.6 fl (79.0-92.2); RDW 16.4 % (12.0-15.6)
[2025-07-04 09:19] LABS: IMMATURE PLATELET FRACTION # 3.90 x10^3/uL; MCHC 29.9 g/dl (32.3-36.5); MEAN PLT VOLUME 10.2 fl (9.4-12.4)
[2025-07-04 10:01] LABS: GLUCOSE,RANDOM 206 mg/dL (74-106); TOT PROT 6.9 g/dl (6.4-8.2)
[2025-07-04 10:02] LABS: CO2 23 mmol/L (21-32)
[2025-07-04 10:04] LABS: ALK PHOS 179 U/L (40-150)
[2025-07-04 10:07] LABS: CREATININE 5.34 mg/dL (0.55-1.3); SGOT/AST 39 U/L (5-34); SGPT/ALT < 6 U/L (0-55)
[2025-07-05] MEDS ORDERED: EPOETIN ALFA-EPBX 10,000 UNIT/ML VIAL SQ ONE (07:15)
[2025-07-05] MEDS: HEPARIN NA (PORCINE) 5,000 UNITS/ML 1ML VIAL IVPUSH ONE (09:20)
[2025-07-05 10:01] LABS: MCHC 29.0 g/dl (32.3-36.5); MEAN CELL VOLUME 100.4 fl (79.0-92.2); MEAN PLT VOLUME 11.0 fl (9.4-12.4); RDW 16.7 % (12.0-15.6)
[2025-07-05 10:35] LABS: GLUCOSE,RANDOM 128 mg/dL (74-106); TOT PROT 6.7 g/dl (6.4-8.2)
[2025-07-05 10:36] LABS: CO2 19 mmol/L (21-32)
[2025-07-05 10:38] LABS: ALK PHOS 168 U/L (40-150)
[2025-07-05 10:41] LABS: CREATININE 6.33 mg/dL (0.55-1.3); SGOT/AST 24 U/L (5-34); SGPT/ALT < 6 U/L (0-55)
[2025-07-05] MEDS: EPOETIN ALFA-EPBX 10,000 UNIT/ML VIAL SQ ONE (10:50)
[2025-07-05] MEDS: HEPARIN NA (PORCINE) 5,000 UNITS/ML 1ML VIAL SQ SCH (21:40)
[2025-07-06 09:24] LABS: MCHC 29.5 g/dl (32.3-36.5); MEAN CELL VOLUME 99.3 fl (79.0-92.2); MEAN PLT VOLUME 10.3 fl (9.4-12.4); RDW 16.9 % (12.0-15.6)
[2025-07-06 10:07] LABS: GLUCOSE,RANDOM 193.0 mg/dL (74-106)
[2025-07-06 10:08] LABS: CO2 24.0 mmol/L (21-32)
[2025-07-06 10:13] LABS: CREATININE 4.54 mg/dL (0.55-1.3)
[2025-07-06] MEDS ORDERED: SODIUM CHLORIDE 250 ML IV PRN (11:07)
[2025-07-07 09:33] LABS: MCHC 29.3 g/dl (32.3-36.5); MEAN CELL VOLUME 99.4 fl (79.0-92.2); MEAN PLT VOLUME 10.7 fl (9.4-12.4); RDW 16.7 % (12.0-15.6)
[2025-07-07] MEDS: HEPARIN NA (PORCINE) 5,000 UNITS/ML 1ML VIAL IVPUSH ONE (09:40)
[2025-07-07 09:56] LABS: GLUCOSE,RANDOM 256 mg/dL (74-106)
[2025-07-07 09:57] LABS: TOT PROT 7.2 g/dl (6.4-8.2)
[2025-07-07 09:58] LABS: CO2 20 mmol/L (21-32)
[2025-07-07 09:59] LABS: ALK PHOS 208 U/L (40-150)
[2025-07-07 10:02] LABS: CREATININE 5.91 mg/dL (0.55-1.3); SGOT/AST 40 U/L (5-34); SGPT/ALT < 6 U/L (0-55)
[2025-07-07] MEDS: EPOETIN ALFA-EPBX 10,000 UNIT/ML VIAL SQ ONE (12:14)
[2025-07-09 09:11] LABS: IMMATURE PLATELET FRACTION # 3.20 x10^3/uL; MCHC 29.4 g/dl (32.3-36.5); MEAN CELL VOLUME 101.1 fl (79.0-92.2); MEAN PLT VOLUME 10.8 fl (9.4-12.4); RDW 16.6 % (12.0-15.6)
[2025-07-09 09:26] LABS: GLUCOSE,RANDOM 211.0 mg/dL (74-106)
[2025-07-09 09:28] LABS: CO2 24.0 mmol/L (21-32)
[2025-07-09 09:32] LABS: CREATININE 5.08 mg/dL (0.55-1.3)
[2025-07-09] MEDS ORDERED: SODIUM CHLORIDE 250 ML IV PRN (10:00)
[2025-07-09] MEDS: EPOETIN ALFA-EPBX 10,000 UNIT/ML VIAL IVPUSH ONE (10:30)
[2025-07-10] MEDS: HEPARIN NA (PORCINE) 5,000 UNITS/ML 1ML VIAL IVPUSH ONE (08:40)
[2025-07-10] MEDS ORDERED: SODIUM CHLORIDE 250 ML IV PRN (08:46)
[2025-07-10 09:46] VITALS: RESP 18; TEMP 97.8
[2025-07-10] MEDS: EPOETIN ALFA-EPBX 10,000 UNIT/ML VIAL IVPUSH ONE (09:48)
[2025-07-10 11:11] VITALS: BP 109/63; PULSE 80
== END 2025-07-10 13:31 | disposition home or self-care (01) | DRG 470 ==
LOC: JER 13:19 → JERBED 17:43 → J5S 20:40
PROVIDERS: ADMIT Student in an Organized Health Care Education/Training Program
PROC: 5A1D70Z Performance of Urinary Filtration, Intermittent, Less than 6 Hours Per Day (ICD-10-PCS; principal; 2025-07-07)
PROC: 5A1D70Z Performance of Urinary Filtration, Intermittent, Less than 6 Hours Per Day (ICD-10-PCS; 2025-07-09)
PROC: 5A1D70Z Performance of Urinary Filtration, Intermittent, Less than 6 Hours Per Day (ICD-10-PCS; 2025-07-10)
DX: I12.0 Hypertensive chronic kidney disease with stage 5 chronic kidney disease or end stage renal disease (principal); E11.22 Type 2 diabetes mellitus with diabetic chronic kidney disease; E78.5 Hyperlipidemia, unspecified; N18.6 End stage renal disease; F39 Unspecified mood [affective] disorder; Z99.2 Dependence on renal dialysis; A49.01 Methicillin susceptible Staphylococcus aureus infection, unspecified site; R53.2 Functional quadriplegia; E43 Unspecified severe protein-calorie malnutrition; Z68.1 Body mass index [BMI] 19.9 or less, adult; Z90.5 Acquired absence of kidney
CPT/HCPCS: 36415; 71045-TC-FY; 80048; 80053; 82962; 83036; 83735; 84100; 85025; 85027; 85610; 85730; 86480; 86704; 86707; 86803; 86850; 86870; 86880; 86900; 86901; 86902; 87040; 87340; 87389; 87517; 93005; 93010; 97116-GP; 97161-GP; 99285-25; Q5106